=== PATIENT | male | born 1945 | race Caucasian/White ===

== ENCOUNTER 2018-09-11 14:20 | Inpatient (IN) | payer MEDICARE ==
--- NOTE | 2018-09-11 14:31 | ED ---
Complex/Multi-Sys Presentation - HPI Summary HPI Summary: Patient is a 73 y/o M presenting to ED via EMS with reports of possible fall. EMS states that the patient had been found on the floor of the bathroom of his home. The patient denies falling in the bathroom, he claims that he had sat down to put on his underwear, but, as a result of his arthritis, he could not stand up. As a result, he decided to lie on the floor of the bathroom. Patient claims to have been on the floor for 30-45 minutes, patient does not have a life alert alarm. He additionally claims that he has not had any PO intake for the past three days. Patient lives at home alone, Hx of stroke, dementia, multiple falls, UTI. Patient notes that he has been experiencing increased frequency of urination and states that he urinated on himself today. Dr. Phelps, who is in ED for another patient at this time, states that he follows this patient. Dr. Phelps notes that the had a recent LP done, patient had been diagnosed with NPH. Patient had been referred to Dr. Miller for possible shunt. During the appointment, the patient stated that he did not want a shunt or more workup. On triage, pain is denied, nothing is noted to aggravate/ alleviate Sx. Home medications, allergies, and nurse's notes are reviewed. - History Of Current Complaint Time Seen by Provider: 09/11/18 14:24 Hx Obtained From: Patient Onset/Duration: Sudden Onset, Lasting Hours - unwitnessed fall, incontinence Timing: Constant Severity Currently: None Aggravating Factor(s): nothing Alleviating Factor(s): nothing Associated Signs And Symptoms: Positive: Other - fall, urinary incontinence, increased frequency of urination - Allergies/Home Medications Allergies/Adverse Reactions: Allergies Allergy/AdvReac Type Severity Reaction Status Date / Time Penicillins Allergy Unknown Verified 08/28/18 13:25 Reaction Details Home Medications: Home Medications Aspirin EC TAB* [Ecotrin EC Low Dose 81 MG*] 81 mg PO DAILY 09/11/18 [History Confirmed 09/11/18] Cholecalciferol CAP/TAB(NF) [Vitamin D3 CAP/TAB (NF)] 5,000 unit PO DAILY [History Confirmed 09/11/18] Cyanocobalamin TAB* [Vitamin B12 TAB*] 1,000 mcg PO DAILY 09/11/18 [History Confirmed 09/11/18] Finasteride TAB* [Proscar TAB*] 7.5 mg PO DAILY 09/11/18 [History Confirmed ] Metoprolol Succinate XL TAB* [Toprol XL TAB*] 25 mg PO BID 09/11/18 [History Confirmed 09/11/18] Multivitamins/Minerals TAB* [Theragran/minerals TAB*] 1 tab PO DAILY 09/11/18 [ History Confirmed 09/11/18] Spironolactone TAB* [Aldactone TAB*] 25 mg PO DAILY 09/11/18 [History Confirmed 09/11/18] PMH/Surg Hx/FS Hx/Imm Hx Endocrine/Hematology History: Denies: Hx Diabetes Cardiovascular History: Reports: Hx Coronary Artery Disease, Hx Hypercholesterolemia, Hx Hypertension - MEDICATED, Hx Valvular Heart Disease, Other Cardiovascular Problems/Disorders - aortic valve replacement Denies: Hx Congestive Heart Failure, Hx Myocardial Infarction, Hx Pacemaker/ ICD Respiratory History: Denies: Hx Asthma, Hx Chronic Obstructive Pulmonary Disease (COPD) GI History: Reports: Hx Gall Bladder Disease - gallbladder removed History: Denies: Hx Renal Disease Sensory History: Reports: Hx Contacts or Glasses - for reading only Denies: Hx Hearing Aid Opthamlomology History: Reports: Hx Contacts or Glasses - for reading only Neurological History: Reports: Hx Transient Ischemic Attacks (TIA) - according to pt knowledge, Other Neuro Impairments/Disorders - LOC 30-40 seconds during syncopal episode--reason for this admission Psychiatric History: Denies: Hx Panic Disorder - Surgical History Surgery Procedure, Year, and Place: 09/30 CABG and aortic valve replace -[facility]. Cholecystectomy-[facility] - Family History Known Family History: Positive: Cardiac Disease - Social History Alcohol Use: None Substance Use Type: Reports: None Smoking Status (MU): Unknown if Ever Smoked Review of Systems Constitutional: Other - POSITIVE - POSSIBLE FALL Positive: frequency - increased urination , incontinence - urinary All Other Systems Reviewed And Are Negative: Yes Physical Exam - Summary Physical Exam Summary: Appearance: well appearing, no pain distress Skin: warm, dry, reflects adequate perfusion Head/face: normal Eyes: EOMI, GRAY ENT: mucous membranes moist Neck: supple, non-tender Respiratory: CTA, breath sounds present Cardiovascular: RRR, pulses symmetrical Abdomen: non-tender, soft Bowel Sounds: present Musculoskeletal: normal, strength/ROM intact Neuro: normal, sensory motor intact, alert and oriented to person, place, redness at occipital area Triage Information Reviewed: Yes Vital Signs On Initial Exam: Initial Vitals Pulse Pulse Ox 108 99 09/11/18 14:26 09/11/18 14:26 Vital Signs Reviewed: Yes Diagnostics - Laboratory Result Diagrams: 09/11/18 15:47 09/11/18 14:46 Lab Statement: Any lab studies that have been ordered have been reviewed, and results considered in the medical decision making process. - Radiology CXR Radiology Interpretation Completed By: Radiologist Summary of Radiographic Findings: IMPRESSION: NO ACTIVE CARDIOPULMONARY DISEASE. THIS REPORT WAS REVIEWED BY DR. MURPHY. - CT BRAIN CT CT Interpretation Completed By: Radiologist Summary of CT Findings: IMPRESSION: NO ACUTE INTRACRANIAL PATHOLOGY. CHRONIC SMALL VESSEL ISCHEMIC CHANGES. THIS REPORT WAS REVIEWED BY DR. MURPHY. Re-Evaluation - Re-Evaluation First Eval Re-Evaluation Time: 14:35 Comment: Daughter, Terra, arrived in ED. She states that the individual who buys groceries for the patient had found the patient on the floor today. She believes that the patient had urinated on the floor in the bathroom, attempted to clean it up, and fell on the floor. Daughter is agreeable with forensic social worker consult, stating that she does not believe the patient is safe at home. Second Eval Re-Evaluation Time: 14:47 Comment: brick kiln worker, Tiara, was contacted. She will put in an adult protective services consult for the patient. Complex Multi-Symp Course/Dx Course Of Treatment: Nurse's notes reviewed. Patient with history of normal pressure hydrocephalus presents after fall. There is evidence on his occiput that he had been on the ground for longer than described. CPK is elevated at greater than 1800. Renal function is just over baseline of 1.0 at 1.2 today. There is leukocytosis without evidence for infection or sepsis syndrome. 2 L IV fluids given and patient will be admitted to the hospitalist service. Social work consult was obtained. - Diagnoses Differential Diagnoses/HQI/PQRI: Metabolic Abnormality, Sepsis, Urinary Tract Infection, Other - Rhabdomyolysis Provider Diagnoses: Traumatic rhabdomyolysis, Normal pressure hydrocephalus syndrome, Dementia associated with normal pressure hydrocephalus, Fall - Physician Notifications Discussed Care Of Patient With: Claudia Rodriguez Time Discussed With Above Provider: 16:58 Instructed by Provider To: Other - Patient's case was discussed with Dr. Rodriguez, Dr. Rodriguez accepts for admission. - Critical Care Time Critical Care Time: 30-74 min - 30 minutes, CCT is EXCLUSIVE of separately billable procedures. Discharge - Sign-Out/Discharge Documenting (check all that apply): Patient Departure - admit Patient Received Moderate/Deep Sedation with Procedure: No - Discharge Plan Condition: Fair Disposition: ADMITTED TO [facility] Referrals: Justin Celestin DO [Primary Care Provider] - - Billing Disposition and Condition Condition: FAIR Disposition: Admitted to [facility] - Attestation Statements Document Initiated by Kasandraibe: Yes Documenting Scribe: ANUSHA ALBA Provider For Whom Kasandraibvladimir is Documenting (Include Credential): ALAYNA MURPHY MD Scribe Attestation: ANUSHA Montanez, scribed for ALAYNA MURPHY MD on 09/11/18 at 1803. Scribe Documentation Reviewed: Yes Provider Attestation: The documentation as recorded by the kasandraibANUSHA gilbert accurately reflects the service I personally performed and the decisions made by me, ALAYNA MURPHY MD Status of Scribe Document: Viewed
[2018-09-11] MEDS ORDERED: NS 0.9% 1000 ML** 1,000 ML IV ONE ×2 (14:35→16:06)
[2018-09-11 15:50] LABS: Albumin 4.2 g/dL (3.2-5.2); Albumin/Globulin Ratio 1.3 (1-3); BUN/Creatinine Ratio 24.8 (8-20); Calcium 9.8 mg/dL (8.6-10.3); EGFR African American 70.9 (>60); EGFR Non-African American 58.6 (>60); Globulin 3.2 g/dL (2-4); Total Bilirubin 1.3 mg/dL (0.2-1.0); Total Protein 7.4 g/dL (6.4-8.9)
[2018-09-11 15:58] LABS: Urine Appearance Cloudy; Urine Bacteria Absent (Absent); Urine Bilirubin Negative (Negative); Urine Blood 2+ (Negative); Urine Color Yellow; Urine Glucose Negative (Negative); Urine Ketones 1+ (Negative); Urine Nitrite Negative (Negative); Urine Protein 3+(>=500 mg/dL) (Negative); Urine Red Blood Cell Trace(0-2/hpf) (Absent); Urine Specific Gravity 1.024 (1.010-1.030); Urine Urobilinogen Negative (Negative); Urine White Blood Cell Trace(0-5/hpf) (Absent)
[2018-09-11 16:03] LABS: Hematocrit 51 % (36-46); Hemoglobin 17.8 g/dL (14.0-18.0); Mean Corpuscular HGB Conc 35 g/dL (31-36); Mean Corpuscular Hemoglobin 31 pg (27-31); Mean Corpuscular Volume 88 fL (80-94); Mean Platelet Volume 7.2 fL (7.4-10.4); Platelet Count 288 10^3/uL (150-450); Red Blood Count 5.83 10^6 /uL (4.18-5.48); Red Cell Distribution Width 13 % (10.5-15); White Blood Count 28.1 10^3/uL (3.5-10.8)
[2018-09-11 16:34] LABS: Potassium 4.2 mmol/L (3.5-5.0)
[2018-09-11 16:43] LABS: ABS Basophils 0.1 10^3/ul (0-0.2); ABS Eosinophils 0 10^3/ul (0-0.6); ABS Lymphocytes 0.8 10^3/ul (1.0-4.8); ABS Monocytes 2.4 10^3/ul (0-0.8); ABS Neutrophils 24.7 10^3/ul (1.5-7.7); ABS Nucleated RBC 0 10^3/ul; Eosinophil % 0.1 %; Lymphocyte % 2.9 %; Nucleated Red Blood Cells % 0
--- NOTE | 2018-09-11 18:28 | ADMNOTE ---
Subjective Interval History: ADMISSION HISTORY AND PHYSICAL EXAM: Allergies Allergy/AdvReac Type Severity Reaction Status Date / Time Penicillins Allergy Unknown Verified 08/28/18 13:25 Reaction Details Home Medications Medication Instructions Recorded Confirmed Type Aspirin EC TAB* [Ecotrin EC Low 81 mg PO DAILY 09/11/18 09/11/18 History Dose 81 MG*] Cholecalciferol CAP/TAB(NF) 5,000 unit PO DAILY 09/11/18 09/11/18 History [Vitamin D3 CAP/TAB (NF)] Cyanocobalamin TAB* [Vitamin B12 1,000 mcg PO DAILY 09/11/18 09/11/18 History TAB*] Finasteride TAB* [Proscar TAB*] 7.5 mg PO DAILY 09/11/18 09/11/18 History Metoprolol Succinate XL TAB* 25 mg PO BID 09/11/18 09/11/18 History [Toprol XL TAB*] Multivitamins/Minerals TAB* 1 tab PO DAILY 09/11/18 09/11/18 History [Theragran/minerals TAB*] Spironolactone TAB* [Aldactone 25 mg PO DAILY 09/11/18 09/11/18 History TAB*] HPI: The patient states he was in his usual state of health when he got up this AM and took a shower. He bent over to dry himself and fell down. He is not sure of the time. He could not get up. His daughter phoned him but he could not answer the phone. She came and found him on the floor and called 911. He has had many falls over the past year or so. He denies any pain now. Family History: Findings - unremarkable. Social History: Findings - Lives alone, . Daughter Terra is his SDM. Other daughter out of state. Never smoked, no alcohol abuse. Past Medical History: Findings - CABG/AVR with tissue valve, cholecystectomy, HTN, HL, BPH, NPH Review of Systems - Measurements Intake and Output: Intake and Output Last 24 Hours 09/09/18 09/10/18 09/11/18 09/12/18 06:59 06:59 06:59 06:59 Intake Total 1000 Balance 1000 Weight 177 lb Intake: IV Fluids 1000 - Review of Systems Constitutional Symptoms: Negative: Weight Gain, Weight Loss, Weakness, Fatigue, Fever, Night Sweats, Unexplained Falls, Other Dermatology: Positive: Normal HEENT: Positive: Normal Eyes: Positive: Normal Thyroid: Positive: Normal Pulmonary: Positive: Normal Cardiology: Positive: Normal Gastroenterology: Positive: Normal Genitourinary - Male: Positive: Prostatism Musculoskeletal: Positive: Arthritis Endocrinology: Positive: Normal Neurology: Positive: Other - NPH, frequent falls Psychiatry: Positive: Normal Allergic/Immunologic: Negative: Hx Anaphylaxis, Hx Angioedema, Hx Environmental, Hx Seasonal, Athsma, Hx HIV, Immunocompromise, Swollen Glands LymphNodes, Other Objective Vital Signs - 8 hr 09/11/18 09/11/18 09/11/18 14:26 14:28 15:19 Temperature 98.5 F Pulse Rate 108 109 109 Respiratory 24 Rate Blood Pressure 131/73 120/83 (mmHg) O2 Sat by Pulse 99 100 98 Oximetry 09/11/18 09/11/18 09/11/18 15:21 15:27 15:58 Temperature Pulse Rate 106 90 Respiratory Rate Blood Pressure 135/83 142/82 (mmHg) O2 Sat by Pulse 99 Oximetry 09/11/18 09/11/18 09/11/18 16:28 16:57 16:58 Temperature Pulse Rate 32 96 97 Respiratory Rate Blood Pressure 122/74 119/76 (mmHg) O2 Sat by Pulse 81 96 98 Oximetry 09/11/18 17:00 Temperature Pulse Rate 95 Respiratory Rate Blood Pressure (mmHg) O2 Sat by Pulse 98 Oximetry Oxygen Devices in Use Now: None Appearance: Alert, supine on ED stretcher. In fair spirits. Looks comfortable. Neck: NL Appearance and Movements; NL JVP, No Thyroid Enlargement, Masses Respiratory: Symmetrical Chest Expansion and Respiratory Effort, Clear to Auscultation, Clear to Percussion Cardiovascular: RRR, No Edema, - - 2/6 systolic murmur RSB Extremities: No Edema, - - R leg larger than L, soft, not tender Skin: No Nodules or Sclerosis, - - 8 cm band erythema R leg above sock impression Neurological: Alert and Oriented x 3, NL Sensation Result Diagrams: 09/11/18 15:47 09/11/18 14:46 Assess/Plan/Problems-Billing Assessment: - Patient Problems (1) NPH (normal pressure hydrocephalus) Current Visit: Yes Status: Acute Code(s): G91.2 - (IDIOPATHIC) NORMAL PRESSURE HYDROCEPHALUS SNOMED Code(s): 91610097 Comment: Discussed with Dr. Phelps who evaluated him as an outpt. 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 He saw Dr. Kincaid but the patient refused shunting. PT/OT ordered. Patient may require STR. (2) Cellulitis Current Visit: Yes Status: Acute Code(s): L03.90 - CELLULITIS, UNSPECIFIED SNOMED Code(s): 683374248 Comment: R leg red, sharply demarcated. Start cefazolin. US R calf ordered due to assymetry in size, R calf much larger than L. (3) Rhabdomyolysis Current Visit: Yes Status: Acute Code(s): M62.82 - RHABDOMYOLYSIS SNOMED Code(s): 377268069 Comment: Due to fall/immobility on floor. Repeat CK 2100 hrs 09/11 and AM . IV fluids, seems a little dehydrated as well. (4) HTN (hypertension) Current Visit: Yes Status: Acute Code(s): I10 - ESSENTIAL (PRIMARY) HYPERTENSION SNOMED Code(s): 68958400 Comment: Continue home dose metoprolol XL. (5) Prostatism Current Visit: Yes Status: Acute Code(s): N40.0 - BENIGN PROSTATIC HYPERPLASIA WITHOUT LOWER URINRY TRACT SYMP SNOMED Code(s): 12292568 Comment: Continue finasteride.
[2018-09-11] MEDS: ceFAZolin 1 GM* Q8H (AddVan) IVPB SCH ×2 (18:38)
[2018-09-11] MEDS: NS 0.9% 1000 ML** 1,000 ML IV SCH (18:39)
--- NOTE | 2018-09-11 18:42 | PN ---
Progress Note - Progress Note Date of Service: 09/11/18 Note: SDM and contact: Terra Shoemaker (daughter), .
[2018-09-11] MEDS ORDERED: ceFAZolin 1 GM in Dextrose (*) 1 GM/50 ML BAG IVPB SCH (19:00)
[2018-09-11 23:02] LABS: BUN/Creatinine Ratio 26.3 (8-20); Calcium 8.7 mg/dL (8.6-10.3); EGFR Non-African American 62.8 (>60); Potassium 3.6 mmol/L (3.5-5.0)
[2018-09-11] MEDS: Metoprolol Succinate XL TAB* 25 MG PO SCH (23:42)
[2018-09-12] MEDS: ceFAZolin 1 GM* Q8H (AddVan) IVPB SCH ×6 (02:37→18:36)
[2018-09-12] MEDS: NS 0.9% 1000 ML** 1,000 ML IV SCH (02:37)
[2018-09-12 06:52] LABS: ABS Basophils 0.1 10^3/ul (0-0.2); ABS Eosinophils 0.1 10^3/ul (0-0.6); ABS Lymphocytes 1.4 10^3/ul (1.0-4.8); ABS Monocytes 1.5 10^3/ul (0-0.8); ABS Neutrophils 11.2 10^3/ul (1.5-7.7); ABS Nucleated RBC 0 10^3/ul; Eosinophil % 0.5 %; Hematocrit 41 % (36-46); Hemoglobin 14.1 g/dL (14.0-18.0); Lymphocyte % 9.5 %; Mean Corpuscular HGB Conc 34 g/dL (31-36); Mean Corpuscular Hemoglobin 30 pg (27-31); Mean Corpuscular Volume 88 fL (80-94); Mean Platelet Volume 6.9 fL (7.4-10.4); Nucleated Red Blood Cells % 0.1; Platelet Count 205 10^3/uL (150-450); Red Cell Distribution Width 13 % (10.5-15); White Blood Count 14.2 10^3/uL (3.5-10.8)
[2018-09-12 07:09] LABS: Calcium 8.5 mg/dL (8.6-10.3); EGFR African American 88.4 (>60); Potassium 3.7 mmol/L (3.5-5.0)
[2018-09-12 07:11] LABS: CKMB ng/mL 31.2 ng/mL (0.6-6.3)
[2018-09-12] MEDS: Cholecalciferol TAB* 1000 UNITS PO SCH (09:50)
[2018-09-12] MEDS: Aspirin EC TAB* 81 MG TAB.EC PO SCH (09:50)
[2018-09-12] MEDS: Cyanocobalamin TAB* 500 MCG PO SCH (09:50)
[2018-09-12] MEDS: Metoprolol Succinate XL TAB* 25 MG PO SCH (09:50)
[2018-09-12] MEDS: Finasteride TAB* 5 MG PO SCH (09:50)
[2018-09-12] MEDS ORDERED: Senna TAB PO PRN (16:36)
[2018-09-12] MEDS ORDERED: NS 0.9% 1000 ML** 1,000 ML IV SCH (16:36)
[2018-09-12] MEDS ORDERED: Polyethylene Glycol 3350* 17 GM PACKET PO PRN (16:36)
--- NOTE | 2018-09-12 16:57 | PN ---
Subjective Interval History: Pt recommended to go to rehab per PT and OT. Pt declines rehab, although doesn' t have capacity to refuse. Daughter reports to other staff that he is unable to care for himself at home - cannot meet basic ADLs. Pt reports to nursing that he has guns at home and wants to shoot himself given his poor health and losing his independence. Denies plan in hospital. During my interview, mostly fixated on the fact that he "did not fall", despite multiple attempts to redirect. Still on IVF given elevated CK from being on ground. Family History: Findings - unremarkable. Social History: Findings - Lives alone, . Daughter Terra is his SDM. Other daughter out of state. Never smoked, no alcohol abuse. Past Medical History: Findings - CABG/AVR with tissue valve, cholecystectomy, HTN, HL, BPH, NPH Objective Active Medications: Aspirin (Aspirin Ec Tab*) 81 mg PO DAILY [facility] Last Admin: 09/12/18 09:50 Dose: 81 mg Cholecalciferol (Vitamin D Tab*) 5,000 units PO DAILY [facility] Last Admin: 09/12/18 09:50 Dose: 5,000 units Cyanocobalamin (Vitamin B12 Tab*) 1,000 mcg PO DAILY [facility] Last Admin: 09/12/18 09:50 Dose: 1,000 mcg Finasteride (Proscar Tab*) 7.5 mg PO DAILY [facility] Last Admin: 09/12/18 09:50 Dose: 7.5 mg Cefazolin Sodium 1 gm/ Sodium (Chloride) 50 mls @ 200 mls/hr IVPB Q8H [facility] Last Admin: 09/12/18 10:40 Dose: 200 mls/hr Sodium Chloride (Ns 0.9% 1000 Ml) 1,000 mls @ 75 mls/hr IV PER RATE [facility] Metoprolol Succinate (Toprol Xl Tab*) 25 mg PO BID [facility] Last Admin: 09/12/18 09:50 Dose: 25 mg Polyethylene Glycol/Electrolytes (Miralax*) 17 gm PO DAILY PRN PRN Reason: CONSTIPATION Senna (Senokot Tab*) 1 tab PO BEDTIME PRN PRN Reason: if no BM during day Vital Signs - 8 hr 09/12/18 09/12/18 10:53 11:07 Temperature 98.1 F Pulse Rate 82 Respiratory 16 20 Rate Blood Pressure 103/54 (mmHg) O2 Sat by Pulse 100 Oximetry Oxygen Devices in Use Now: None Appearance: appears dysthymic and averts eyes to ground Cardiovascular: RRR Extremities: - - R lim with few scattered scabs with surrounding erythema, no fluctuance or drainage Result Diagrams: 09/12/18 06:44 09/12/18 06:44 Microbiology and Other Data: Microbiology 09/11/18 15:44 Urine Culture - Final Urine No Growth (<1,000 CFU/mL) Assess/Plan/Problems-Billing Assessment: 73M with CAD s/c CABG/AVR, BPH, HTN, normal pressure hydrocephalus declining shunt, who presents after being found down at home. Found with mild rhabdo, new cellulitis of RLE, and inability to care for self. Pending placement. - Patient Problems (1) Suicidal ideation Comment: No plan in hospital but states he has guns and wants to shoot himself given multiple medical problems and loss of independence. - psych consulted (2) HTN (hypertension) Comment: Continue home dose metoprolol XL. (3) Rhabdomyolysis Comment: Due to fall/immobility on floor. CK always < 5k. - decrease IVF to 75cc/hr given no SHEBA and creatinine decreasing (4) Prostatism Comment: Continue finasteride. (5) NPH (normal pressure hydrocephalus) Comment: Discussed with Dr. Phelps who evaluated him as an outpt. 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 He saw Dr. Kincaid but the patient refused shunting. PT/OT ordered. Patient may require STR. (6) Cellulitis Comment: R leg red, sharply demarcated. - cont cefazolin (09/11 - )
[2018-09-12] MEDS: Metoprolol Succinate XL TAB* 50 MG PO SCH (20:10)
[2018-09-13] MEDS: ceFAZolin 1 GM* Q8H (AddVan) IVPB SCH ×2 (02:43)
[2018-09-13 07:51] LABS: ABS Basophils 0.1 10^3/ul (0-0.2); ABS Eosinophils 0.2 10^3/ul (0-0.6); ABS Lymphocytes 1.4 10^3/ul (1.0-4.8); ABS Neutrophils 7.5 10^3/ul (1.5-7.7); ABS Nucleated RBC 0 10^3/ul; Eosinophil % 2.4 %; Hematocrit 38 % (36-46); Lymphocyte % 13.7 %; Mean Corpuscular HGB Conc 35 g/dL (31-36); Mean Corpuscular Hemoglobin 31 pg (27-31); Mean Corpuscular Volume 89 fL (80-94); Nucleated Red Blood Cells % 0; Platelet Count 184 10^3/uL (150-450); Red Blood Count 4.24 10^6 /uL (4.18-5.48); Red Cell Distribution Width 13 % (10.5-15); White Blood Count 10.1 10^3/uL (3.5-10.8)
[2018-09-13 08:11] LABS: BUN/Creatinine Ratio 27.4 (8-20); Calcium 8.4 mg/dL (8.6-10.3); EGFR African American 108.1 (>60); EGFR Non-African American 89.3 (>60); Magnesium 1.9 mg/dL (1.9-2.7); Potassium 3.7 mmol/L (3.5-5.0)
[2018-09-13] MEDS ORDERED: Magnesium Sulfate 1 GM IV* 1 GM/100 ML BAG IV ONE (08:22)
[2018-09-13] MEDS ORDERED: Potassium Chlor TAB* 20 MEQ TAB.ER PO ONE (08:22)
[2018-09-13] MEDS: Cholecalciferol TAB* 1000 UNITS PO SCH (08:32)
[2018-09-13] MEDS: Cyanocobalamin TAB* 500 MCG PO SCH (08:33)
[2018-09-13] MEDS: Finasteride TAB* 5 MG PO SCH (08:34)
[2018-09-13] MEDS: Aspirin EC TAB* 81 MG TAB.EC PO SCH (08:34)
[2018-09-13] MEDS: Cephalexin CAP* 500 MG PO SCH ×4 (08:41→22:42)
[2018-09-13] MEDS: Tamsulosin CAP* 0.4 MG PO SCH (11:09)
[2018-09-13] MEDS: Citalopram TAB* 20 MG PO SCH (12:17)
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
[2018-09-13] MEDS: Enoxaparin(*) 40 MG/0.4 ML SYR SUBCUT SCH (13:58)
--- NOTE | 2018-09-13 20:03 | PN ---
Subjective Date of Service: 09/13/18 Interval History: Pt in better spirits today and mentions that people in medicine need to have more of a "sense of humor" regarding his statement that he would shoot himself when he gets home. Discussed with patient the necessity of rehab placement and he is amenable to this plan. He is now off IV antibiotics and off IVF. He was evaluated by psychiatry today and deemed to not have capacity to refuse placement. He was amenable to being started on an SSRI. His only complaint is that he is embarrassed that, "as a 73 year old man", he is having difficulty urinating. He states he has a history of prostate issues and is on finasteride. Will start tamsulosin and monitor BP. Family History: Findings - unremarkable. Social History: Findings - Lives alone, . Daughter Terra is his SDM. Other daughter out of state. Never smoked, no alcohol abuse. Past Medical History: Findings - CABG/AVR with tissue valve, cholecystectomy, HTN, HL, BPH, NPH Objective Active Medications: Aspirin (Aspirin Ec Tab*) 81 mg PO DAILY [facility] Last Admin: 09/13/18 08:34 Dose: 81 mg Cephalexin HCl (Keflex Cap*) 500 mg PO QID [facility] Last Admin: 09/13/18 17:04 Dose: 500 mg Cholecalciferol (Vitamin D Tab*) 5,000 units PO DAILY [facility] Last Admin: 09/13/18 08:32 Dose: 5,000 units Citalopram Hydrobromide (Celexa Tab*) 20 mg PO DAILY [facility] Last Admin: 09/13/18 12:17 Dose: 20 mg Cyanocobalamin (Vitamin B12 Tab*) 1,000 mcg PO DAILY [facility] Last Admin: 09/13/18 08:33 Dose: 1,000 mcg Enoxaparin Sodium (Lovenox(*)) 40 mg SUBCUT Q24H [facility] Last Admin: 09/13/18 13:58 Dose: 40 mg Finasteride (Proscar Tab*) 7.5 mg PO DAILY [facility] Last Admin: 09/13/18 08:34 Dose: 7.5 mg Metoprolol Succinate (Toprol Xl Tab*) 50 mg PO BEDTIME [facility] Last Admin: 09/12/18 20:10 Dose: 50 mg Polyethylene Glycol/Electrolytes (Miralax*) 17 gm PO DAILY PRN PRN Reason: CONSTIPATION Senna (Senokot Tab*) 1 tab PO BEDTIME PRN PRN Reason: if no BM during day Tamsulosin HCl (Flomax Cap*) 0.4 mg PO DAILY [facility] Last Admin: 09/13/18 11:09 Dose: 0.4 mg Vital Signs - 8 hr 09/13/18 09/13/18 14:32 15:36 Temperature 97.5 F 99.0 F Pulse Rate 70 74 Respiratory 20 22 Rate Blood Pressure 141/69 129/59 (mmHg) O2 Sat by Pulse 97 97 Oximetry Oxygen Devices in Use Now: None Appearance: elderly man, more interactive today but still with depressed mood Ears/Nose/Mouth/Throat: Mucous Membranes Moist Respiratory: Clear to Palpation Cardiovascular: RRR Extremities: - - 1+ edema around ankles Result Diagrams: 09/13/18 07:12 09/13/18 07:12 Microbiology and Other Data: Microbiology 09/11/18 15:44 Urine Culture - Final Urine No Growth (<1,000 CFU/mL) Assess/Plan/Problems-Billing Assessment: 73M with CAD s/c CABG/AVR, BPH, HTN, normal pressure hydrocephalus declining shunt, who presents after being found down at home. Found with mild rhabdo, new cellulitis of RLE, and inability to care for self. Pending placement. - Patient Problems (1) Rhabdomyolysis Comment: Due to fall/immobility on floor. CK always < 5k. Now off IVF and with continued good renal function. (2) Suicidal ideation Comment: No plan in hospital but states he has guns and wants to shoot himself given multiple medical problems and loss of independence. - psych consulted, appreciate recs: deemed not to have capacity to refuse placement or SSIRI - medication started (3) HTN (hypertension) Comment: Continue home dose metoprolol XL. (4) Prostatism Comment: Continue finasteride. Add tamsulosin. (5) NPH (normal pressure hydrocephalus) Comment: He had [facility]TER imaging at another hospital, had trial of LP with large volume CSF removal with significant improvement. He saw Dr. Kincaid but the patient refused shunting. Now pending CATINA. (6) Cellulitis Comment: R leg red, sharply demarcated. - cont first-gen ceph - now PO (09/11 - ) Status and Disposition: Pending placement.
[2018-09-13] MEDS: Metoprolol Succinate XL TAB* 50 MG PO SCH (22:41)
[2018-09-14 08:30] LABS: Hematocrit 40 % (36-46); Hemoglobin 13.7 g/dL (14.0-18.0); Mean Corpuscular HGB Conc 35 g/dL (31-36); Mean Corpuscular Hemoglobin 31 pg (27-31); Mean Corpuscular Volume 88 fL (80-94); Mean Platelet Volume 6.9 fL (7.4-10.4); Platelet Count 212 10^3/uL (150-450); Red Blood Count 4.48 10^6 /uL (4.18-5.48); Red Cell Distribution Width 13 % (10.5-15)
[2018-09-14 08:43] LABS: BUN/Creatinine Ratio 18.6 (8-20); Calcium 8.8 mg/dL (8.6-10.3); EGFR African American 105.2 (>60); EGFR Non-African American 86.9 (>60); Potassium 4.2 mmol/L (3.5-5.0)
[2018-09-14 09:13] LABS: TSH (Thyroid Stimulating Horm) 3.56 mcIU/mL (0.34-5.60)
[2018-09-14 09:27] LABS: Vitamin D Total 25(OH) 45.6 ng/mL (20-50)
[2018-09-14] MEDS: Cyanocobalamin TAB* 500 MCG PO SCH (10:39)
[2018-09-14] MEDS: Cholecalciferol TAB* 1000 UNITS PO SCH (10:39)
[2018-09-14] MEDS: Tamsulosin CAP* 0.4 MG PO SCH (10:39)
[2018-09-14] MEDS: Finasteride TAB* 5 MG PO SCH (10:39)
[2018-09-14] MEDS: Cephalexin CAP* 500 MG PO SCH ×2 (10:39→14:47)
[2018-09-14] MEDS: Aspirin EC TAB* 81 MG TAB.EC PO SCH (10:40)
[2018-09-14] MEDS: Citalopram TAB* 20 MG PO SCH (10:40)
--- NOTE | 2018-09-14 13:16 | CONSULT ---
Identification - Patient Identification Reason for Psychiatric Consultation: Suicidal Ideation -: Patient is a 73 year old, M admitted on 09/11/18. - MHU Identification Employment Status: Disabled Hx Psychiatric Hospitalization: No History - Objective HPI: Farhat is seen for psychiatric follow up. Prior to seeing him I spoke again with his daughter, Terra Shoemaker ([phone]), who reports that the family has removed the weapons from his home per our instructions. She also notes that the patient sent a text message to his friend Fredy in which he allegedly asked him to bring a gun to the Rehab "so I can end this problem the right way." Upon examination I confronted the patient with this information and he is dismissive. "Doesn't anybody in this hospital have a sense of humor? I'm not gonna do anything to myself." He is provided with education about the purpose of sub-acute rehab as well as the rationale behind starting an antidepressant and he is actually fairly receptive to this. His cognition remains impaired with overt lapses in memory, orientation, attention and insight. He steadfastly denies SI. Exam Appearance: Obese Hygiene: Normal Grooming: Fairly Well Kept Psychomotor Activities: Abnormal-Decreased Exhibits Abnormal Movement: No Attitude and Relatedness: Dismissive Eye Contact: Good - Speech Quality: Unpressured Latencies: Normal Quantity: Appropriate Patient's Decription of Mood: "Sad" Observed Affect: Constricted Affect Consistent with: Dysphoria Patient's Thought Process: Circumstantial Thought Content: No Passive Wish, No Suicidal Planning, No Homicidal Ideation, No Paranoid Ideation Experiencing Hallucinations: No, Sensorium is Clear Type of Hallucinations: Visual: No, Auditory: No, Command: No Level of Consciousness: Alert Orientation: No Intact, No Orientated to Time, No Orientated to Place, No Orientated to Person Impulse Control: Poor Insight and Judgement: Impaired Impression - Impression Clinical Impression: 73 y.o. single, , retired white male with no psychiatric history but comorbid dementia and normal pressure hydrocephalus, admitted to medicine s/p falls and decreased ability to care for himself independently, who is being evaluated by psychiatry secondary to questions of medical decision making capacity as well as suicidal statements. Inpatient DSM-V Dx: F32.2 Merits Inpatient Hospitalization: No BSU: Problem List - Patient Problems (1) Major depressive disorder, single episode, severe Current Visit: Yes Status: Acute Priority: Medium Code(s): F32.2 - MAJOR DEPRESSV DISORD, SINGLE EPSD, SEV W/O PSYCH FEATURES SNOMED Code(s): 848801360445 Plan - Treatment Plan Treatment Plan: The patient has been started on citalopram 20mg PO qday, which he is tolerating well. No inpatient behavioral health treatment is warranted at this time. He is set for transfer to [facility] this afternoon. His family has removed the weapons from his home and this clinician has issued a SAFE Act report that will prevent his access to firearm sales in the future. Psychiatry is signing off. Thanks for the interesting consult. Continued Medication Management: Start Medication Medications: Current Medications Aspirin (Aspirin Ec Tab*) 81 mg PO DAILY [facility] Last Admin: 09/14/18 10:40 Dose: 81 mg Cephalexin HCl (Keflex Cap*) 500 mg PO QID [facility] Last Admin: 09/14/18 10:39 Dose: 500 mg Cholecalciferol (Vitamin D Tab*) 5,000 units PO DAILY [facility] Last Admin: 09/14/18 10:39 Dose: 5,000 units Citalopram Hydrobromide (Celexa Tab*) 20 mg PO DAILY [facility] Last Admin: 09/14/18 10:40 Dose: 20 mg Cyanocobalamin (Vitamin B12 Tab*) 1,000 mcg PO DAILY [facility] Last Admin: 09/14/18 10:39 Dose: 1,000 mcg Enoxaparin Sodium (Lovenox(*)) 40 mg SUBCUT Q24H [facility] Last Admin: 09/13/18 13:58 Dose: 40 mg Finasteride (Proscar Tab*) 7.5 mg PO DAILY [facility] Last Admin: 09/14/18 10:39 Dose: 7.5 mg Metoprolol Succinate (Toprol Xl Tab*) 50 mg PO BEDTIME [facility] Last Admin: 09/13/18 22:41 Dose: 50 mg Polyethylene Glycol/Electrolytes (Miralax*) 17 gm PO DAILY PRN PRN Reason: CONSTIPATION Senna (Senokot Tab*) 1 tab PO BEDTIME PRN PRN Reason: if no BM during day Tamsulosin HCl (Flomax Cap*) 0.4 mg PO DAILY [facility] Last Admin: 09/14/18 10:39 Dose: 0.4 mg
[2018-09-14 14:13] VITALS: BP 114/66
--- NOTE | 2018-09-14 15:31 | DS ---
CC: Dr. Justin Celestin; Dr. Howard Arango; Dr. Ernesto Phelps DISCHARGE SUMMARY: DATE OF ADMISSION: 09/11/18 DATE OF DISCHARGE: 09/14/18 PRIMARY CARE PHYSICIAN: Dr. Justin Celestin. NEUROLOGIST: Dr. Ernesto Phelps. DISPOSITION: [facility] for rehab. CONDITION: Improved. PRIMARY DIAGNOSES: 1. Fall complicated by rhabdomyolysis. 2. Cellulitis of right lower extremity. 3. Normal pressure hydrocephalus, complicated by gait instability. 4. Depression with suicidal ideation. SECONDARY DIAGNOSES: 1. Benign prostatic hyperplasia. 2. Coronary artery disease, status post coronary artery bypass graft and aortic valve replacement. 3. Hypertension. CONSULTS: Psychiatry, Dr. Howard Arango. MEDICATIONS ON DISCHARGE: 1. Spironolactone 25 mg daily. 2. Finasteride 7.5 mg daily. 3. Tamsulosin 0.4 mg daily. 4. Aspirin 81 mg daily. 5. Metoprolol succinate 50 mg nightly. 6. Citalopram 20 mg daily. 7. MiraLAX 17 g daily as needed for constipation. 8. Vitamin B12 1000 mcg daily. 9. Vitamin D3 5000 units daily. 10. Multivitamin daily. HISTORY OF PRESENT ILLNESS: Mr. Saavedra is a 73-year-old man with coronary artery disease, status post CABG/AVR; normal pressure hydrocephalus, refusing shunt; BPH; hypertension, who is presenting after being found down at home. He reports that he was in his usual state of health until getting up in the morning on the day of presentation , take a shower, he bent over to dry himself and had fallen down. He does not know what time but he was not able to get up to call for help. His daughter was not able to reach him on the phone, so she went to his house to find him on the floor and called 911. He has had many falls in the last few years. He is denying pain, lightheadedness, although does report skin breakdown on the back of his head from being on the ground, so it is possible that he had been on the ground for longer than just 1 day prior to presentation. HOSPITAL COURSE: Collateral obtained from the patient's neurologist reveals that he previously had had a trial of a lumbar puncture with large volume CSF removal with significant improvement in his NPH symptoms; however, after evaluation with Dr. Miller, the patient stated he refused the shunt. He was noted by the hospitalist team to have a sharply demarcated area of erythema on his right lim without purulence, so he was started on first-generation cephalosporin for his hospitalization. He was found to have a CPK of 1862, so he was started on IV fluids for rhabdomyolysis. His creatinine function remained normal throughout admission. He was evaluated by Physical Therapy, who had recommended acute rehab services given that he required safety cueing and a rolling walker for transfers. Of note, during the hospitalization, the patient had told staff that he had guns at home and that he planned to shoot himself on discharge. According to his daughter, he did this at an outside hospital within the last 6 months and was evaluated by Psychiatry. Here, he was seen by the psychiatry team and had SAFE Act precautions placed and was started on an SSRI. He was deemed by psychiatry team not to have capacity to refuse treatment for depression nor to have capacity to refuse rehab placement. Subacute rehab facility options were presented to his daughter and who decided to apply to [facility] where he was accepted for rehab. On the day of discharge, the patient denied complaints, only stating that he is embarrassed that he has had this recent functional decline and that he still does not understand why he is able to return home, although this had been explained to him each morning on rounds. Otherwise, 10-point review of systems was negative. PHYSICAL EXAMINATION: The patient is afebrile. Other vital signs are stable. In general, chronically ill-appearing elderly man, not in acute distress. Neck : Without JVD. Heart: Regular rate and rhythm. No murmurs, gallops, or rubs. Lungs: Clear to auscultation bilaterally. Abdomen: Soft, nontender, nondistended. Lower Extremities: Right lim with healing scabs, no longer with erythema, nontender. Trace lower extremity swelling around ankles. Neuro exam: A and O x3. The patient declines further neurologic assessment. PERTINENT STUDIES AND LABS: Brain CT on 09/11/18 with no acute intracranial pathology, with chronic small vessel ischemic changes. Chest x-ray with no active cardiopulmonary disease. Venous Doppler study with no DVT on the visualized knee veins, but poor visualization of posterior tibioperoneal veins secondary to edema, so below-the - knee DVT cannot be excluded. DISCHARGE PLAN: The patient is to be transferred to the [facility] for ongoing skilled physical therapy needs. He is to continue all medications as above and will need follow-up with general practitioner and psychiatrist for his ongoing chronic medical conditions and psychiatric needs with possible titration of his newly started SSRI during admission. He has to resume a healthy diet and regular level of activity as tolerated. TIME SPENT: Approximately 60 minutes spent on discharge of this patient; more than half of which was spent with care, coordination, or at bedside for interview and exam. [id number]/CPS #: [id number] MTDD
[2018-09-14] MEDS: Enoxaparin(*) 40 MG/0.4 ML SYR SUBCUT SCH (16:33)
== END 2018-09-14 15:30 | DRG 565 ==
LOC: ED 14:20 → MED 18:06
PROVIDERS: ADMIT Internal Medicine; ATTEND Internal Medicine
DX: T79.6XXA Traumatic ischemia of muscle, initial encounter (principal); G91.2 (Idiopathic) normal pressure hydrocephalus; L03.115 Cellulitis of right lower limb; R45.851 Suicidal ideations; F32.2 Major depressive disorder, single episode, severe without psychotic features; W19.XXXA Unspecified fall, initial encounter; R29.6 Repeated falls; F03.90 Unspecified dementia, unspecified severity, without behavioral disturbance, psychotic disturbance, mood disturbance, and anxiety; I25.10 Atherosclerotic heart disease of native coronary artery without angina pectoris; E78.00 Pure hypercholesterolemia, unspecified; I10 Essential (primary) hypertension; D72.829 Elevated white blood cell count, unspecified; E78.5 Hyperlipidemia, unspecified; N40.0 Benign prostatic hyperplasia without lower urinary tract symptoms; E66.9 Obesity, unspecified; R26.9 Unspecified abnormalities of gait and mobility; Z79.82 Long term (current) use of aspirin; Y92.091 Bathroom in other non-institutional residence as the place of occurrence of the external cause; Z95.2 Presence of prosthetic heart valve; Z86.73 Personal history of transient ischemic attack (TIA), and cerebral infarction without residual deficits; Z90.49 Acquired absence of other specified parts of digestive tract; Z82.49 Family history of ischemic heart disease and other diseases of the circulatory system; Z88.0 Allergy status to penicillin; Z87.440 Personal history of urinary (tract) infections; Z68.25 Body mass index [BMI] 25.0-25.9, adult
CPT/HCPCS: 36415; 70450; 71045; 80048; 80053; 81003; 81015; 82306; 82550; 82553; 83605; 83735; 84443; 85025; 85027; 87086; 99284; A9270-GY; G8978-GP-CL; G8979-GP-CI; G8987-GO-CK; G8988-GO-CI; G8989-GO-CH; J0690; J1650; J3475

== ENCOUNTER 2018-11-02 05:47 | Inpatient (IN) | payer MEDICARE ==
[~2018-11-02 05:47] MED LIST: Buffered Lidocaine 1% SYRIN* 1 ML/SYRINGE INTRADERM ONE; Vancomycin(*) 1,000 MG in NS 0.9% 250 ML* 250 ML IVPB SCH
--- OUTSIDE RECORDS SUMMARY | 2018-11-02 05:51 | XMS REPORT | Continuity of Care Document ---
:1945 External Reference #:[id number] Author Name JenniferGloria laboy Care Team Providers Name Role Phone Justin Celestin D.O. Primary Care Physician Unavailable Payers Date Identification Numbers Payment Provider Subscriber Effective: 2013 Policy Number: [id number] Medicare Blue Ppo Farhat Saavedra Group Number: [id number] [address] [address] PayID: [id number] [place] [address] Problems Active Problems Provider Date Aortic valve disorder Laina Rodriguez D.O. Onset: 04/07/2011 Coronary arteriosclerosis Laina Rodriguez D.O. Onset: 10/11/2011 Aortic valve disorder Liana Rodriguez D.O. Onset: 04/12/2012 Benign essential hypertension [facility] Schedule Onset: 04/05/2013 Normal pressure hydrocephalus Ernesto Phelps M.D. Onset: 09/21/2018 Abnormal gait Ernesto Phelps M.D. Onset: 08/01/2018 Amnesia Ernesto Phleps M.D. Onset: 08/01/2018 Obstructive hydrocephalus Ernesto Phelps M.D. 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 Polyethylene Glycol 1000 as needed Unknown Powder Acetaminophen 2 every 4 hours Unknown 325mg Tablets as needed for pain Cholecalciferol 5000 by po Unknown Powder Cyanocobalamin one everyday Unknown 1000mcg/ML Solution Tamsulosin HCL 1 by mouth every Unknown 0.4mg Capsules day Celexa 1 by mouth every Unknown 20mg Tablets day Vitamin D3 Maximum 1 by mouth every Unknown Strength day 5000Unit Capsules Vitamin B12 1 by mouth every Unknown 1000mcg Tablets day ER Finasteride Take One Tablet Unknown 5mg Tablets By Mouth Every Day Spironolactone Take One Tablet Unknown 25mg Tablets By Mouth Every Day Metoprolol Succinate ER Take One Tablet Unknown 50mg By Mouth once a Tablets ER 24HR day Coq-10 1 by mouth bid Unknown 100mg Capsules Multivitamins 1 PO qd Alvin Breen MD Tablets History Medications Pravastatin Sodium Take 1 Tablet By 90tabs Laina 04/12/2012 - 40mg Mouth AT Bedtime Beverly Rodriguez 05/30/2014 Tablets Pravastatin Sodium 1 po daily at Laina 10/11/2011 - 80mg bedtime Beverly Rodriguez 10/11/2011 Tablets Pravastatin Sodium 1 po daily at Laina 10/11/2011 - 80mg bedtime Beverly Rodriguez 04/12/2012 Tablets Avapro 1 po qd 30tabs Laina 06/15/2010 - 150mg Tablets Beverly Rodriguez 11/30/2010 Metoprolol Succinate ER 1 po bid 180tabs Laina 05/11/2010 - 25mg Beverly Rodriguez 03/31/2018 Tablets ER 24HR Altace 1 po qd 90caps Laina 04/20/2010 - 5mg Capsules Beverly Rodriguez 06/15/2010 Ibuprofen 1 PO tid prn 270tabs Enoch Bui, 01/03/2007 - 600mg Tablets Samy 05/11/2010 Lisinopril Take One Tablet Unknown - 5mg Tablets By Mouth Every 04/17/2018 Day Cyclobenzaprine HCL Take One Tablet Unknown - 10mg By Mouth Three 04/17/2018 Tablets Times A Day as Needed For Muscle Spasm Atorvastatin Calcium Take One Tablet Unknown - 40mg By Mouth Every 04/17/2018 Tablets Day Spironolactone Take One Tablet Unknown - 25mg Tablets By Mouth Every 03/31/2018 Day Carbidopa-Levodopa Take One Tablet Unknown - 25-100mg By Mouth Three 07/31/2018 Tablets Times A Day Atorvastatin Calcium 1 by mouth every 90tabs Unknown - 10mg day 03/31/2018 Tablets Tamsulosin HCL 1 by mouth every 90caps Unknown - 0.4mg Capsules day 03/31/2018 Avapro Take One Tablet 30tabs Laina - 75mg Tablets By Mouth Every Beverly Rodriguez 12/12/2013 Day Aspirin 1 po qd Unknown - 325mg Tablets 06/07/2013 Pravastatin Sodium 1 tablet by 90tabs Laina - 40mg mouth once daily Beverly Rodriguez 06/07/2013 Tablets at bedtime Lovastatin 1 po bid Unknown - 20mg Tablets 11/30/2010 Altace 1 po qd Unknown - 2.5mg Capsules 04/20/2010 Asa 1 po qd Unknown - 81mg 11/30/2010 Viagra 1 po prn 12tabs Unknown - 50mg Tablets 04/20/2010 Multiple Vitamins 1 po qd Unknown - Tablets 04/20/2010 Lovastatin po qhs 90tabs Unknown - 20mg Tablets 05/11/2010 Medications Administered in Office Medication SIG Qnty Indications Ordering Provider Date Depomedrol 40MG Laina Gonzales M.D. 06/19/2015 Injection Depomedrol 80MG Laina Gonzales M.D. 11/11/2014 Injection Depomedrol 80MG Laina Gonzales M.D. 04/04/2014 Injection Depomedrol 80MG Laina Gonzales M.D. 08/23/2013 Injection Depomedrol 80MG Laina Gonzales M.D. 11/13/2012 Injection Immunizations CPT Code Status Date Vaccine Lot # [id number] Given 04/11/2002 Td (History By Patient) Vital Signs Date Vital Result Comment 10/04/2018 2:01pm Height 65 inches 5'5" Weight 169.00 lb BP Systolic Sitting 122 mmHg BP Diastolic Sitting 80 mmHg Pain Level 0 BMI (Body Mass Index) 28.1 kg/m2 09/21/2018 10:21am Height 65 inches 5'5" Weight 169.00 lb Heart Rate 63 /min BP Systolic 128 mmHg BP Diastolic 82 mmHg BMI (Body Mass Index) 28.1 kg/m2 09/08/2018 9:29am Height 65 inches 5'5" Weight 177.00 lb Heart Rate 70 /min BP Systolic Sitting 140 mmHg BP Diastolic Sitting 78 mmHg Respiratory Rate 14 /min Pain Level 0 BMI (Body Mass Index) 29.5 kg/m2 08/28/2018 11:15am Height 65 inches 5'5" Weight 177.00 lb Heart Rate 72 /min BP Systolic 112 mmHg BP Diastolic 82 mmHg BMI (Body Mass Index) 29.5 kg/m2 08/01/2018 11:26am Height 65 inches 5'5" Weight 177.00 lb Heart Rate 70 /min BP Systolic 120 mmHg BP Diastolic 70 mmHg BMI (Body Mass Index) 29.5 kg/m2 04/17/2018 1:23pm Height 65 inches 5'5" Weight 178.00 lb BP Systolic Sitting 138 mmHg BP Diastolic Sitting 70 mmHg Pain Level 4 BMI (Body Mass Index) 29.6 kg/m2 02/01/2018 7:58am Height 65 inches 5'5" Weight 178.00 lb with shoes Heart Rate 68 /min BP Systolic Sitting 120 mmHg Lue reg cuff BP Diastolic Sitting 80 mmHg Lue reg cuff BP Systolic Standing 130 mmHg Lue reg cuff BP Diastolic Standing 80 mmHg Lue reg cuff Respiratory Rate 16 /min BMI (Body Mass Index) 29.6 kg/m2 Ejection Fraction 60-65% date 12/21/17 ECHO 03/04/2017 8:23am Height 65 inches 5'5" Weight 172.00 lb no shoes Heart Rate 78 /min BP Systolic Sitting 162 mmHg Rue reg cuff BP Diastolic Sitting 86 mmHg Rue reg cuff BP Systolic Standing 160 mmHg Rue reg cuff BP Diastolic Standing 84 mmHg Rue reg cuff Respiratory Rate 18 /min BMI (Body Mass Index) 28.6 kg/m2 Ejection Fraction 55-60% 01/20/2016-echo 01/30/2016 8:39am Height 65 inches 5'5" Weight 169.00 lb no shoes Heart Rate 80 /min BP Systolic Sitting 150 mmHg Ra lrg cuff BP Diastolic Sitting 90 mmHg Ra lrg cuff BP Systolic Standing 158 mmHg Ra lrg cuff BP Diastolic Standing 94 mmHg Ra lrg cuff Respiratory Rate 19 /min BMI (Body Mass Index) 28.1 kg/m2 Ejection Fraction 55-60% 01/20/16 06/19/2015 1:58pm Height 65 inches 5'5" Weight 171.00 lb Pain Level 7 BMI (Body Mass Index) 28.5 kg/m2 06/13/2015 8:01am Height 65 inches 5'5" Weight 170.00 lb w/o shoes Heart Rate 80 /min reg BP Systolic Sitting 130 mmHg Lue, reg cuff BP Diastolic Sitting 84 mmHg Lue, reg cuff BP Systolic Standing 126 mmHg Lue BP Diastolic Standing 84 mmHg Lue Respiratory Rate 18 /min BMI (Body Mass Index) 28.3 kg/m2 Ejection Fraction 55-60% as of 10/24/13 echo 11/11/2014 9:02am Height 65 inches 5'5" Weight 171.00 lb Pain Level 7 BMI (Body Mass Index) 28.5 kg/m2 05/31/2014 10:17am Height 65 inches 5'5" Weight 171.00 lb no shoes Heart Rate 68 /min BP Systolic Sitting 156 mmHg LA, reg cuff BP Diastolic Sitting 86 mmHg LA, reg cuff BP Systolic Standing 158 mmHg LA BP Diastolic Standing 86 mmHg LA Respiratory Rate 16 /min BMI (Body Mass Index) 28.5 kg/m2 04/04/2014 3:31pm Height 65 inches 5'5" Heart Rate 75 /min BP Systolic 144 mmHg BP Diastolic 73 mmHg 12/13/2013 11:22am Height 65 inches 5'5" Weight 170.00 lb without shoes Heart Rate 62 /min BP Systolic 136 mmHg LA reg cuff/ 124/80 st BP Diastolic 80 mmHg LA reg cuff/ 124/80 st BP Systolic Sitting 140 mmHg Ra reg cuff BP Diastolic Sitting 80 mmHg Ra reg cuff BP Systolic Standing 120 mmHg Ra reg cuff BP Diastolic Standing 80 mmHg Ra reg cuff Respiratory Rate 16 /min BMI (Body Mass Index) 28.3 kg/m2 08/23/2013 3:55pm Heart Rate 74 /min BP Systolic 154 mmHg BP Diastolic 84 mmHg 06/07/2013 11:10am Height 69 inches 5'9" Weight 165.00 lb Heart Rate 80 /min Regular BP Systolic Sitting 130 mmHg BP Diastolic Sitting 60 mmHg BMI (Body Mass Index) 24.4 kg/m2 04/12/2012 10:46am Height 69 inches 5'9" Weight 167.00 lb per pt Heart Rate 66 /min BP Systolic 132 mmHg BP Diastolic 84 mmHg BMI (Body Mass Index) 24.7 kg/m2 10/11/2011 10:50am Height 69 inches 5'9" Weight 163.00 lb Pt gave weight Heart Rate 68 /min regular BP Systolic Sitting 138 mmHg BP Diastolic Sitting 78 mmHg BMI (Body Mass Index) 24.1 kg/m2 04/07/2011 2:05pm Height 69 inches 5'9" Weight 161.00 lb Heart Rate 66 /min BP Systolic Sitting 128 mmHg BP Diastolic Sitting 70 mmHg BMI (Body Mass Index) 23.8 kg/m2 11/30/2010 1:45pm Height 69 inches 5'9" Weight 162.00 lb Heart Rate 80 /min BP Systolic Sitting 158 mmHg L BP Diastolic Sitting 82 mmHg L BMI (Body Mass Index) 23.9 kg/m2 05/11/2010 1:48pm Height 69 inches 5'9" Weight 175.00 lb Heart Rate 88 /min BP Systolic Sitting 176 mmHg L BP Diastolic Sitting 50 mmHg L BMI (Body Mass Index) 25.8 kg/m2 04/20/2010 1:20pm Height 69 inches 5'9" Weight 178.00 lb Heart Rate 75 /min BP Systolic Sitting 168 mmHg first bp 180/60 BP Diastolic Sitting 54 mmHg first bp 180/60 BP Systolic Standing 168 mmHg BP Diastolic Standing 52 mmHg BMI (Body Mass Index) 26.3 kg/m2 01/31/2007 2:25pm Height 66 inches 5'6" Weight 173.00 lb Heart Rate 72 /min BMI (Body Mass Index) 27.9 kg/m2 01/03/2007 1:26pm Height 66 inches 5'6" Weight 178.00 lb BP Systolic Sitting 174 mmHg BP Diastolic Sitting 68 mmHg BMI (Body Mass Index) 28.7 kg/m2 Results Test Date Facility Test Result H/L Range Note Oligoclonal Bands 08/28/2018 [facility] CSF Oligoclonal [address] [place] [address] [phone] Serum Oligoclonal Bands 2 bands Oligoclonal Proteins Interpret 1 bands <4 1 CSF Immunoglobulin 08/28/2018 [facility] CSF Immunoglobulin 0.54 <=0.85 G (Igg) [address] [place] [address] [phone] CSF Igg 4.7 mg/dL <=8.1 CSF Albumin 34.4 mg/dL Abnormal <=27.0 CSF IgG/Albumin Ratio 0.14 <=0.21 CSF Immunoglobulin G Synthesis 2.23 mg/24h <=12 Immunoglobulin G 1160 mg/dL 767 - 1590 Albumin 4510 mg/dL 2 Serum IgG/Albumin Ratio 0.26 <=0.40 3 [facility] PERIANESTHESIA NURSE Igg 08/28/2018 [facility] PERIANESTHESIA NURSE Negative Negative Serum/CSF [address] Infection IgG, [place] [address] CSF [phone] [place] PERIANESTHESIA NURSE Infection IgG, Interp See Comment 4 [place] PERIANESTHESIA NURSE Infection IgG, Serum See Comment 5 Cath Panel 04/23/2010 [facility] PTT (Aptt) 30.2 25.15-38.[address] [place] [address] [phone] CBC With 04/23/2010 [facility] White Blood 10.1 CUMM 4.8- 10.8 Manual Diff [address] [place] [address] [phone] Red Cell Count 4.73 CUMM 4.6-6.2 Hemoglobin 14.4 g/dL 14.0-18.0 Hematocrit 42 % 42-52 Mean Corpuscular Volume 88 um3 80-94 Mean Corpuscular Hemoglob 31 pg 27-31 Mean Corpuscular HGB Cone 35 g/dL 32-36 Redcell Distribution WDTH 12 % 10.5-15 Platelet Count 250 CUMM 150-450 Mean Platelet Volume 6.6 um3 Low 7.4-10.4 Polysegmented Neutrophil 84 % High 38-83 Band Neutrophil 1 % 0-8 Lymphocyte 7 % Low 25-47 Monocyte 4 % 0-13 Eosinophil 3 % 0-6 Atypical Lymph 1 % 0-6 Absolute Neutrophil Count 8.5 RBC Morphology NORMAL Protime 04/23/2010 [facility] Inr 0.95 0.82-1.17 6 [address] [place] [address] [phone] Protime 11.2 SEC 10.2-14.8 7 Basic Metabolic Panel 04/23/2010 [facility] Sodium 135 mmol/L 135-145 [address] [place] [address] [phone] Potassium 4.6 mmol/L 3.5-5.0 Chloride 100 mmol/L Low 101-111 Co2 (Carbon Dioxide) 28.0 mmol/L 22-32 Anion Gap 7.0 mmol/L 2-11 8 Glucose 108 mg/dL High 70-100 9 BUN 21 mg/dL 6-24 Creatinine 0.96 mg/dL 0.50-1.40 One Over Creatinine 1.00 BUN/Creatinine Ratio 21.9 High 8-20 Calcium 9.3 mg/dL 8.1-9.9 eGFR Non- 83.5 > 60 eGFR 101.1 > 60 10 1 The oligoclonal band assay detected 3 or fewer unique IgG bands in the CSF. This is a negative result. Test Performed by: [facility] [place] [address] 2 REFERENCE VALUE 3200 - 4800 3 Test Performed by: [facility] [address] 4 No antibodies to Lyme Borrelia species detected in cerebrospinal fluid. A negative result in a patient with appropriate exposure history and symptoms consistent with neuroinvasive Lyme disease should not be used to exclude infection. Testing for antibodies to Lyme Borrelia species in serum should be performed. ADDITIONAL INFORMATION This test was developed and its performance characteristics determined by [facility] in a manner consistent with CLIA requirements. This test has not been cleared or approved by the U.S. Food and Drug Administration. 5 CSF screen was negative for IgG-class antibodies to Lyme Borrelia species. Testing for IgG-class antibodies to Borrelia in serum is not indicated and was not performed. Test Performed by: [facility] - [facility] [address] [place] [address] 6 Recommended INR for Patients on Oral Anticoagulants Prophylaxis 2.0 - 3.0 Treatment of thrombosis 2.0 - 3.0 Prevention of embolism 2.0 - 3.0 Prevention of embolism from prosthetic heart valves 2.5 - 3.5 7 DIAGNOSIS,TREATMENT,AND THERAPY MUST BE BASED ON THE INR VALUE ALONE. 8 Anion gap measurement may be of limited value in the presence of any alkalosis, especially in a combined acid base disorder. . 9 Note change in reference range as of 01/11/08. The change was based on recommendations from the [employer]. 10 Because ethnic data is not always readily available, this report includes an eGFR for both -Americans and non- Americans. The National Kidney Disease Education Program (NKDEP) does not endorse the use of the MDRD equation for patients that are not between the ages of 18 and 70, are , have extremes of body size, muscle mass, or nutritional status, or are non- or non-. According to the National Kidney Foundation, irrespective of diagnosis, the stage of the disease is based on the level of kidney function: Stage Description GFR(mL/min/1.73 m(2)) 1 Kidney damage with normal or decreased GFR 90 2 Kidney damage with mild decrease in GFR 60-89 3 Moderate decrease in GFR 30-59 4 Severe decrease in GFR 15-29 5 Kidney failure <15 (or dialysis) Procedures Date Code Description Status 02/01/2018 75483 EKG Tracing & Interpretation Completed 12/21/2017 26177 ECHO Transthoracic, Real-Time 2D With Doppler And Color Completed Flow 12/21/2017 70931 ECHO Transthoracic, Real-Time 2D With Doppler And Color Completed Flow 03/04/2017 61700 EKG Tracing & Interpretation Completed 01/28/2016 62940 Stress Test Completed 01/20/2016 26856 ECHO Transthoracic, Real-Time 2D With Doppler And Color Completed Flow 06/19/201580545 Inject/Drain Joint/Bursa Major W/O US Completed 06/13/2015 89455 EKG Tracing & Interpretation Completed 11/11/201468833 Inject/Drain Joint/Bursa Major W/O US Completed 04/04/201414792 Inject/Drain Joint/Bursa Major W/O US Completed 12/13/2013 99280 EKG Tracing & Interpretation Completed 10/29/2013 90712 Treadmill Interp/Report Only Completed 10/29/2013 53006 Stress Test Supervsn W/Out I/R Completed 10/25/2013 01307 Treadmill Interp/Report Only Completed 10/25/2013 92552 Stress Test Supervsn W/Out I/R Completed 10/25/2013 03356 EKG, Interpretation Only Completed 10/24/2013 43842 ECHO Transthorasic Realtime 2D W Doppler & Color Flow Hosp Completed 08/23/201398515 Inject/Drain Joint/Bursa Major W/O US Completed 04/05/2013 36710 ECHO Transthoracic, Real-Time 2D With Doppler And Color Completed Flow 11/13/201289279 Inject/Drain Joint/Bursa Major W/O US Completed 04/12/2012 45580 EKG Tracing & Interpretation Completed 11/30/2010 45193 EKG Tracing & Interpretation Completed 11/18/2010 73420 ECHO Transthoracic, Real-Time 2D With Doppler And Color Completed Flow 04/28/2010 56333 Com RT And LT Catheterization Completed 04/28/2010 65054 Inj Proc LFT Vent/LFT Atrl Angio Completed 04/28/2010 45976 Aortic Root Inj Proc Completed 04/28/2010 13465 Coronary Angiography Completed 04/28/2010 66470 Coronary Angiography Completed 04/28/2010 04367 S/I/R Inj Proc Vent And Or Atrial Completed 04/28/2010 94946 Selective Coronary Angioplasty Completed 04/20/2010 30904 EKG Tracing & Interpretation Completed 02/07/2007 81693 Color Doppler Completed 02/07/2007 16219 Color Doppler Completed 02/07/2007 71135 Color Doppler Completed 02/07/2007 54058 Pulse Doppler & Continuous Wave Completed 02/07/2007 79032 Pulse Doppler & Continuous Wave Completed 02/07/2007 76870 Echocardiogram Completed 02/07/2007 08796 Echocardiogram Completed 02/07/2007 21025 Echocardiogram Completed Encounters Type Date Location Provider Dx Diagnosis Office Visit 10/04/2018 [facility] G91.2 (Idiopathic) normal 2:30p Services Of Roseanna Miller MD pressure hydrocephalus G91.9 Hydrocephalus, unspecified M41.9 Scoliosis, unspecified Office Visit 09/14/2018 11:48a [facility] Emilee Arbpriyanka, M62.82 Rhabdomyolysis nader Bynum MD Hospitalists L03.115 Cellulitis of right lower limb G91.2 (Idiopathic) normal pressure hydrocephalus R45.851 Suicidal ideations R26.89 Other abnormalities of gait and mobility Office Visit 09/13/2018 11:47a [facility] Emilee L03.115 Cellulitis of nader Bynum MD right lower limb Hospitalists M62.82 Rhabdomyolysis I10 Essential (primary) hypertension R45.851 Suicidal ideations Office Visit 09/12/2018 11:47a [facility] Emilee L03.115 Cellulitis of nader Bynum MD right lower limb Hospitalists M62.82 Rhabdomyolysis I10 Essential (primary) hypertension G91.2 (Idiopathic) normal pressure hydrocephalus R45.851 Suicidal ideations Office Visit 09/11/2018 [facility] Ty G91.2 (Idiopathic) normal 11:47a nader Bynum M.D. pressure Hospitalists hydrocephalus L03.115 Cellulitis of right lower limb M62.82 Rhabdomyolysis I10 Essential (primary) hypertension Office Visit 09/08/2018 [facility] G91.9 Hydrocephalus, 9:30a Services Of Roseanna Miller MD unspecified M47.896 Other spondylosis, lumbar region M43.16 Spondylolisthesis, lumbar region Office Visit 08/28/2018 [facility] G91.9 Hydrocephalus, 11:45a Neurologic Samy Phelps unspecified Services Of Roseanna R41.3 Other amnesia R26.89 Other abnormalities of gait and mobility Office Visit 08/01/2018 [facility] G91.9 Hydrocephalus, 11:15a Giuseppe Phelps M.D. unspecified Services Of Roseanna R41.3 Other amnesia R26.89 Other abnormalities of gait and mobility Office Visit 04/17/2018 [facility] G91.9 Hydrocephalus, 1:30p Services Of Roseanna Miller MD unspecified M47.896 Other spondylosis, lumbar region M43.16 Spondylolisthesis, lumbar region R29.2 Abnormal reflex F03.90 Unspecified dementia without behavioral disturbance Office Visit 02/01/2018 8:00a [facility] Zachary D. Z95.2 Presence of Of Roseanna Nevarez M.D. prosthetic heart valve I25.10 Athscl heart disease of [place] coronary artery w/o ang pctrs Office Visit 03/04/2017 8:30a [facility] Zachary D. I25.10 Athscl heart Of Roseanna Nevarez M.D. disease of [place] coronary artery w/o ang pctrs Z95.2 Presence of prosthetic heart valve I35.1 Nonrheumatic aortic (valve) insufficiency Office Visit 01/30/2016 8:00a [facility] Zachary D. I25.10 Athscl heart Of Roseanna Nevarez M.D. 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 I25.10 Athscl heart Of Roseanna Nevarez M.D. disease of [place] coronary artery w/o ang pctrs Z95.2 Presence of prosthetic heart valve R94.31 Abnormal electrocardiogram [ECG] [EKG] Office Visit 05/31/2014 10:30a [facility] Zahcary D. 424.1 Aortic Valve Of Roseanna Nevarez M.D. Disorder 414.01 Coronary Atherosclerosis [place] Office Visit 12/13/2013 11:15a [facility] Zachary D. 424.1 Aortic Valve Of Roseanna Nevarez M.D. Disorder 414.01 Coronary Atherosclerosis [place] 780.2 Syncope & Collapse Office Visit 10/25/2013 3:46p [facility] Claudia Rodriguez 780.2 Syncope & Assoc,nader Pablo Collapse Hospitalists 401.9 Hypertension Unspec 414.00 Coronary Atherosclerosis Unspec Type Vessel [place]raft Office Visit 10/25/2013 [facility] [place]ad[place], 780.09 Consciousness 10:21a Cardiology Of Samy Alteration Other [facility] 424.1 Aortic Valve Disorder Office Visit 10/24/2013 3:45p [facility] Cem Browning, 780.2 Syncope & Assoc,pc N.P. Collapse Hospitalists 401.9 Hypertension Unspec 414.00 Coronary Atherosclerosis Unspec Type Vessel [place]/Graft Office Visit 06/07/2013 11:00a [facility] Laina 424.1 Aortic Valve Rodriguez, D.O. Disorder 401.1 Hypertension Benign 414.01 Coronary Atherosclerosis [place] 272.4 Hyperlipidemia Other Unspec Office Visit 04/12/2012 11:00a [facility] Laina 424.1 Aortic Valve Rodriguez, D.O. Disorder 414.01 Coronary Atherosclerosis [place] 401.1 Hypertension Benign 272.4 Hyperlipidemia Other Unspec Office Visit 10/11/2011 11:00a [facility] Laina 424.1 Aortic Valve Rodriguez, D.O. Disorder 414.01 Coronary Atherosclerosis [place] 401.1 Hypertension Benign 272.4 Hyperlipidemia Other Unspec Office Visit 04/07/2011 2:20p [facility] Laina 424.1 Aortic Valve Rodriguez, D.O. Disorder 414.01 Coronary Atherosclerosis [place] 272.4 Hyperlipidemia Other Unspec 401.1 Hypertension Benign Office Visit 11/30/2010 [facility] 414.01 Coronary 2:00p Cardiology Jennifer, D.O. Atherosclerosis [place] 424.1 Aortic Valve Disorder 401.1 Hypertension Benign 272.4 Hyperlipidemia Other Unspec Office Visit 05/11/2010 [facility] L[facility]a 786.09 Dyspnea & 2:00p Cardiology Jennifer D.O. Respiratory Abnormalities Other 414.01 Coronary Atherosclerosis [place] 424.1 Aortic Valve Disorder 401.1 Hypertension Benign 272.4 Hyperlipidemia Other Unspec Office Visit 04/20/2010 1:40p [facility] Laina 424.1 Aortic Valve Rodriguez, D.O. Disorder 401.1 Hypertension Benign 272.4 Hyperlipidemia Other Unspec Office Visit 01/31/2007 2:30p [facility] Enoch Reynoso 796.2 Blood Pressure Assoc AT Samy Bui [place] Elevated [facility] W/O Hypertension 785.2 Murmur Cardiac Undiagnosed Office Visit 01/03/2007 1:30p [facility] Enoch Bui, 724.2 Lumbago [facility] Samy 796.2 Blood Pressure [place] Elevated W/O Hypertension Plan of Treatment Future Appointment(s):12/11/2018 2:30 pm - Ernesto [facility]ps M[facility]/04/2018 - Blanca Miller MDG91.2 (Idiopathic ) normal pressure hydrocephalusFollow up:Rv one week, one month, three months postop. Please obtain MRI and XR sameer and notify me when doneG91.9 Hydrocephalus , [id number] Scoliosis, unspecifiedNew Xrays:MRI Thoracic Spine W/O, Ordered: 10/04/18
[2018-11-02] MEDS ORDERED: Famotidine IV* 10 MG/ML 2 ML (20 mg) IV ONE (06:00)
[2018-11-02] MEDS ORDERED: Lactated Ringers 1000 ML Bag* 1,000 ML IV SCH (06:00)
[2018-11-02] MEDS ORDERED: Famotidine IV* 10 MG/ML 2 ML (20 mg) ONE (06:04)
[2018-11-02] MEDS ORDERED: Bacitracin INJECTION* 50,000 UNITS ONE ×2 (06:37→11:02)
[2018-11-02] MEDS ORDERED: Lidocaine 1% MPF wEPI 200,000* 30 ML SDV ONE (06:37)
[2018-11-02] MEDS ORDERED: Thrombin 5,000 UNITS* 1 APPLIC KIT - topical use - TOPICAL ONE (06:37)
[2018-11-02] MEDS ORDERED: Phenylephrine 10 MG/ML VIAL* 1 ML VIAL ONE (07:09)
[2018-11-02] MEDS ORDERED: Rocuronium* 10 MG/ML VIAL ONE ×2 (07:09→09:28)
[2018-11-02] MEDS ORDERED: Ondansetron INJ* 2 MG/ML VIAL ONE (07:09)
[2018-11-02] MEDS ORDERED: fentaNYL* 50 MCG/ML 5 ML VIAL (250 MCG VIAL) ONE (07:09)
[2018-11-02] MEDS ORDERED: Dexamethasone IV* 4 MG/ML 1 ML (4 MG) ONE (07:09)
[2018-11-02] MEDS ORDERED: Propofol* 10 MG/ML 20 ML BTL ONE (07:09)
[2018-11-02] MEDS ORDERED: Midazolam* 1 MG/ML 5 ML VIAL (5 MG) ONE (07:09)
[2018-11-02] MEDS ORDERED: Lidocaine 2% PF * 5 ML VIAL ONE ×2 (07:09→07:13)
[2018-11-02] MEDS ORDERED: EPHEDrine (Pressors)* 50 MG/ML VIAL ONE (07:09)
[2018-11-02] MEDS ORDERED: Artificial Tear OPHTH.OINT* 3.5 GM ONE (07:17)
[2018-11-02] MEDS ORDERED: Metoprolol Succinate XL TAB* 25 MG PO ONE (08:00)
[2018-11-02] MEDS ORDERED: Ondansetron INJ* 2 MG/ML VIAL IV PRN (10:34)
[2018-11-02] MEDS ORDERED: Acetaminophen IV 1GM/100ML * 1,000 MG/100 ML VIAL IVPB ONE (10:34)
[2018-11-02] MEDS ORDERED: Naloxone* 0.4 MG/ML 1 ML VIAL IV PRN (10:34)
[2018-11-02] MEDS ORDERED: fentaNYL* 50 MCG/ML 2 ML VIAL (100 MCG VIAL) IV PRN (10:34)
[2018-11-02] MEDS ORDERED: Morphine INJ* 2 MG/ML 1 ML SYRINGE (TWO MG - NEW SYRINGE VERSION) IV PRN (13:35)
[2018-11-02] MEDS: Lactated Ringers 1000 ML Bag* 1,000 ML IV SCH ×2 (15:00→23:11)
[2018-11-02] MEDS ORDERED: Aspirin EC TAB* 81 MG TAB.EC PO SCH (16:00)
--- NOTE | 2018-11-02 17:14 | PN ---
Date of Service: 11/02/18 - CONSULT Critical Care Services: 73 yo M with PMH of benign essential HTN, CAD, valvular disorder and normal pressure hydrocephalus went to OR 11/02 for placement of DIRECTOR CRITICAL CARE shunt. Post procedure admitted to ICU for further care. Vital Signs: Temp Pulse Resp BP SpO2 FiO2 97.1 F 81 16 161/81 95 11/02/18 13:10 11/02/18 15:47 11/02/18 15:47 11/02/18 15:47 11/02/18 15:47 Physical Exam: Gen:resting comfortably HEENT: Dressing to left head intact Lungs: nonlabored Cardiac: RRR Abdomen: soft, NTND Extremities: warm, dry. no edema Neuro: Alert, asking repeated questions (has short term memory loss at baseline ). Moving all extremities equally. Fluid Balance (Past 24 Hours): I= O= Net Intake & Output 10/31/18 11/01/18 11/02/18 11/03/18 06:59 06:59 06:59 06:59 Intake Total 2350 Output Total 1400 Balance 950 Weight 155 lb 155 lb Intake: IV Fluids 2350 LR 2100 NS 250ML, Vancomycin 250 1000MG Output: Rehman 1400 Labs: None Studies: 11/02 CT brain: DIRECTOR CRITICAL CARE shunt tip projecting between frontal horns of lateral ventricles. Distal tip may be within the frontal horn of the left lateral ventricle. 11/02: CT abdomen: DIRECTOR CRITICAL CARE shunt in place Nutrition: NPO Impression: 73 yo M with normal pressure hydrocephalus, went to OR on 11/02 for DIRECTOR CRITICAL CARE shunt placement. Post procedure admitted to ICU for further care. Plan: Cardiovascular: (1) benign essential HTN; (2) CAD; (3) Hx of aortic valve disorder -- HR 56-81 -- SBP 104-161 -- Telemetry -- ASA -- Metoprolol -- Spironolactone -- PRN Hydralazine for goal SBP < 140 Home meds: ASA, Spironolactone, Metoprolol Pulmonary: No acute issues -- RR 12-18 -- sats 98-100on 2L NC -- CXR: None Home meds: None Gastrointestinal: No acute issues -- CT abd pelvis: DIRECTOR CRITICAL CARE Shunt in place. -- diet: CLD. Advance to regular in the morning -- bowel regimen: Miralax -- ulcer prophylaxis: Not indicated at this time Home meds: Miralax Endocrine: No acute issues -- monitor BGs Home meds: None Renal: No acute issues -- UOP: 140 ml/hr -- Cr ordered with AM labs -- Lytes Na ordered with AM labs K ordered with AM labs Ca ordered with AM labs Mag ordered with AM labs Phos ordered with AM labs -- IVF: LR @ 75ml/hr -- Finasteride & Tamsulosin -- Spironolactone Home meds: Tamsulosin, Finasteride, Spironolactone Infectious disease: No acute issues -- Tmax 98.6 -- WBC ordered with AM labs -- Micro None -- ABX perioperative Home meds: None Neurologic: (1) Normal pressure hydrocephalus s/p DIRECTOR CRITICAL CARE shunt placement; (2) hx of amnesia; (3) hx of gait disturbance -- CT brain: DIRECTOR CRITICAL CARE shunt tip projecting between frontal horns of lateral ventricles. Distal tip may be within the frontal horn of the left lateral ventricle. -- Celexa -- PRN Percocet & Morphine as needed for pain control -- PT -- Social work consult for rehab Home meds: Tylenol, Celexa Hematological: No acute issues -- Hgb ordered with AM labs -- Plt ordered with AM labs -- Coags ordered with AM labs -- DVT prophylaxis: SCDs -- ASA Home meds: ASA Metabolic: No acute issues Home meds: None Other: -- Cholecalciferol -- Cynaocobalamin -- MVI Home meds: Cholecalciferol, Cynaocobalamin, Vit D3, Vit B12, Coq-10, MVI Deep vein thrombosis prophylaxis: SCDs Dietary: Not indicated at this time Condition: stable Prognosis: guarded Code status: DNR Disposition:admitted to ICU postop Cumulative time spent in the care of this patient (excluding any procedure time) : at least 30 minutes. Patient care included clinical interview (with patient and/or family), bedside exam of the patient, review of labs, x-rays, and other ancillary data, coordination of (respiratory, nursing care, review of patient's records, discussion regarding patients management with involved consultants, primary physician, pharmacists, and other healthcare personnel (dietary, case management , physical/occupational therapy etc.) Critical Care Time: 30
--- NOTE | 2018-11-02 17:18 | OP ---
DATE OF OPERATION: 11/02/18 - ROOM #ICU-12 DATE OF : 43 SURGEON: Blanca Miller MD. DENTAL APPLIANCE MECHANIC: Phoenix Bailey PA-C. The case was done with the surgical PA because of the complexity of the case. ANESTHESIA: General. PRE-OP DIAGNOSIS: Normal pressure hydrocephalus. POST-OP DIAGNOSIS: Normal pressure hydrocephalus. OPERATIVE PROCEDURE: The patient underwent right frontal ventriculoperitoneal shunt placement with the assistance of intraoperative navigation. ESTIMATED BLOOD LOSS: 20 cc. COMPLICATIONS: None. SUMMARY: The patient is a very pleasant 73-year-old gentleman with a diagnosis of normal pressure hydrocephalus, who benefited from a large volume lumbar puncture. After failing conservative treatment modalities, he was offered the option of surgical intervention in the form of right frontal FANCY SEWER shunt placement. After all expectations, limitations, and possible complications of the procedure had been explained in detail to the patient and his family, including his two daughters, with complications including, but not limited to bleeding, infection, risk of injury to adjacent structures, paralysis, , need for additional procedures, stroke, blindness, cancer, malposition of hardware, need for additional procedures, injury to intra-abdominal or intrathoracic contents, injury to large vessels, hemorrhage, anesthesia risks, the patient and his family agreed to proceed with surgery. Informed consent was obtained. The patient and his daughters understood that his condition may not improve and in fact may get worse after the surgery and that he may need to have additional procedures in the future. He also understood that intraoperative plan may be modified according to intra-operative findings and conditions. He also understood that he may require to undergo several revisions for reposition of hardware or for some malfunction, disconnection, or infection. He also understood that the patient may need prolonged ICU stay, prolonged hospitalization, prolonged rehabilitation, need for tracheostomy or gastrostomy, or prolonged dependence on the ventilator, inability to improve, worsening of his neurological state, development of subdural hematomas, or revert to hydrocephalus. The patient also understood that the case may be abandoned or done in more than one stages. DESCRIPTION OF PROCEDURE: The patient was brought to the operating room, was placed under general anesthesia by the anesthesia team. He was carefully positioned supine on the operative table and his right shoulder was carefully elevated, his head was turned slightly towards the left side and secured on a gel doughnut head of talent management. Hair was removed with surgical clippers. After proper surgical position and patient identification, the skin incision sites were marked on the skin, one on the right frontal Jian point and one in the right postauricular area and one in the abdomen. The patient was registered with intraoperative [employer] navigation. After confirmation of excellent intraoperative accuracy, the skin was prepped and draped in a standard fashion and appropriate surgical pause and patient identification, the skin incision sites were infiltrated with local anesthetic. A #10 surgical blade was used to incise the right frontal incision in a semi-curvilinear fashion. The skin was elevated with pickups and Bovie cautery while a small amount of the periosteum was left inside in order to secure the FANCY SEWER shunt catheter later. A bur hole was then performed with a high-speed drill and the dura was gently coagulated and incised with #11 surgical blade. The incision was covered with sterile sponge. A second incision in the posterior auricular area was incised with #10 surgical blade and self-retaining retractors were introduced into the field. The abdominal skin was incised with #10 surgical blade. The incision was carried down to the anterior sheath of the rectus muscle with Bovie cautery. Self-retaining retractors were introduced into the field and the anterior sheath of the rectus muscle was then gently elevated and was divided with Metzenbaum scissors. The rectus abdominis muscle was then gently dissected and the posterior sheath was identified, which was elevated with mosquito clamps and incised with Metzenbaum scissors. The peritoneum was then identified and incised with Metzenbaum scissors after reposition of the mosquitoes and careful inspection of intraperitoneal fat and bowel was identified while the red rubber catheter revealed good flow. Then, attention was brought to tunnel the skin between the 2 incisions. Periosteum elevator was used to tunnel the right frontal and right posterior auricular incision and the distal peritoneal catheter was attached into the Strata Medtronic valve, which was preset at a setting of 2.5. The distal catheter was then passed with the assistance of 2-0 silk tie and the valve was secured in place and preparation for the connection with the proximal catheter. The tunnel was used to tunnel the skin between the posterior auricular incision and the abdominal incision and the distal peritoneal catheter was passed to the abdominal incision. The wounds were covered with a wet sponge. Then, the proximal ventricular catheter was brought into the field and the guided stylet was inserted under stereotactic navigation. The catheter was passed into the ventricle, free flow of spinal fluid was then returned, confirmed an excellent placement of the catheter. Then, the catheter was cut in size and was connected to the valve with rubber mosquitoes. 2-0 ties were used to secure the ventricular catheter into the proximal end of the Strata valve and the right angle guide was secured in the periosteum with 2-0 silk sutures. The shunt valve was pumping and filling very nicely and excellent flow of CSF was found into the distal end of the peritoneal catheter, while proximal and distal occlusion of the catheter confirmed excellent proximal and distal flow. Then, the distal peritoneal catheter was gently inserted into the peritoneum after placing 2-0 catgut suture as a pursestring to the peritoneum. This was gently tied and the wound was closed by layers with approximation of the anterior sheath with 2-0 interrupted Vicryl sutures while the subcutaneous tissue was approximated with interrupted 2-0 Vicryl sutures. Then after copious irrigation and confirmation of meticulous hemostasis, all wounds were closed by layers with 2-0 inverted interrupted Vicryl sutures and 4-0 inverted interrupted Vicryl sutures. The skin was covered with Dermabond. At the end of the procedure, all counts were reported to be correct. The patient remained hemodynamically stable throughout the case. The patient was then extubated and was transferred to Recovery in excellent condition. The case was done with the assistance of a surgical PA because of the complexity of the case. [id number]/CPS #: [id number] SATHISH
[2018-11-02] MEDS: HYDROcodone/ACETAMIN 5-325 MG* 1 TAB PO PRN (17:50)
[2018-11-02] MEDS: Citalopram TAB* 20 MG PO SCH (17:50)
[2018-11-02] MEDS: Spironolactone TAB* 25 MG PO SCH (17:50)
[2018-11-02] MEDS: Cholecalciferol TAB* 1000 UNITS PO SCH (17:50)
[2018-11-02] MEDS: Multivitamins/Minerals TAB PO SCH (17:50)
[2018-11-02] MEDS: Cyanocobalamin TAB* 500 MCG PO SCH (17:50)
[2018-11-02] MEDS: Finasteride TAB* 5 MG PO SCH (17:51)
[2018-11-02] MEDS: Tamsulosin CAP* 0.4 MG PO SCH (17:51)
[2018-11-02] MEDS: Metoprolol Succinate XL TAB* 25 MG PO SCH (20:50)
[2018-11-03] MEDS: hydrALAZINE IV* 20 MG/ML VIAL IV SLOW PU PRN ×2 (03:13→16:35)
[2018-11-03 05:00] LABS: Hematocrit 38 % (42-52); Mean Corpuscular HGB Conc 35 g/dL (31-36); Mean Corpuscular Hemoglobin 30 pg (27-31); Mean Corpuscular Volume 87 fL (80-94); Mean Platelet Volume 6.7 fL (7.4-10.4); Platelet Count 228 10^3/uL (150-450); Red Blood Count 4.35 10^6 /uL (4.18-5.48); Red Cell Distribution Width 14 % (10-15); White Blood Count 14.8 10^3/uL (3.5-10.8)
[2018-11-03 05:11] LABS: BUN/Creatinine Ratio 16.3 (8-20); Calcium 9.8 mg/dL (8.6-10.3); EGFR African American 105.2 (>60); EGFR Non-African American 86.9 (>60); Magnesium 1.8 mg/dL (1.9-2.7)
[2018-11-03] MEDS ORDERED: hydrALAZINE IV* 20 MG/ML VIAL IV SLOW PU ONE (05:23)
[2018-11-03 05:36] LABS: Activated Partial Thrombo Time 32.7 seconds (26.0-38.0); INR 1.08 (0.82-1.09)
[2018-11-03] MEDS: amLODIPine TAB* 5 MG PO SCH (05:43)
[2018-11-03] MEDS: HYDROcodone/ACETAMIN 5-325 MG* 1 TAB PO PRN (05:54)
[2018-11-03] MEDS: Aspirin EC TAB* 81 MG TAB.EC PO SCH ×2 (08:25→08:26)
[2018-11-03] MEDS: Heparin VIAL(*) 5000 UNITS/ML VIAL (FIVE THOUSAND) SUBCUT SCH ×2 (08:27→21:03)
[2018-11-03] MEDS: Finasteride TAB* 5 MG PO SCH (08:28)
[2018-11-03] MEDS: Multivitamins/Minerals TAB PO SCH (08:31)
[2018-11-03] MEDS: Spironolactone TAB* 25 MG PO SCH (08:31)
[2018-11-03] MEDS: Metoprolol Succinate XL TAB* 25 MG PO SCH ×2 (08:31→21:03)
[2018-11-03] MEDS: Tamsulosin CAP* 0.4 MG PO SCH (08:31)
[2018-11-03] MEDS: Cholecalciferol TAB* 1000 UNITS PO SCH (08:32)
[2018-11-03] MEDS: Citalopram TAB* 20 MG PO SCH (08:33)
[2018-11-03] MEDS: Cyanocobalamin TAB* 500 MCG PO SCH (08:33)
[2018-11-03] MEDS ORDERED: Metoclopramide TAB* 10 MG PO ONE (10:35)
--- NOTE | 2018-11-03 11:48 | PN ---
Date of Service: 11/03/18 - HD 2 Critical Care Services: 73 yo M with PMH of benign essential HTN, CAD, valvular disorder and normal pressure hydrocephalus went to OR 11/02 for placement of BUSINESS DEVELOPMENT SALES EXECUTIVE shunt. Post procedure admitted to ICU for further care. 11/03: Nausea and vomiting x 1 secondary to ileus. No other overnight events. Vital Signs: Temp Pulse Resp BP SpO2 FiO2 98.4 F 90 23 143/78 92 11/03/18 07:22 11/03/18 07:00 11/03/18 07:00 11/03/18 07:00 11/03/18 07:00 Physical Exam: Gen: alert, sitting up in chair HEENT: dressing intact Lungs: nonlabored Cardiac: RRR Abdomen: soft, minimally distending Extremities: warm, dry, no edema Neuro: conversant. moving extremities equally Fluid Balance (Past 24 Hours): I= O= Net Intake & Output 11/01/18 11/02/18 11/03/18 11/04/18 06:59 06:59 06:59 06:59 Intake Total 3271 Output Total 2300 Balance 971 Weight 155 lb 159 lb 9.835 oz Intake: IV Fluids 3181 LR 2931 NS 250ML, Vancomycin 250 1000MG Oral 90 Output: Urine 150 Rehman 2150 Other: Estimated Void Small # Voids 1 Labs: Laboratory Results - last 24 hr 11/03/18 11/03/18 11/03/18 04:40 04:40 04:40 WBC 14.8 H RBC 4.35 Hgb 13.0 L Hct 38 L MCV 87 MCH 30 MCHC 35 RDW 14 Plt Count 228 MPV 6.7 L INR (Anticoag Therapy) 1.08 APTT 32.7 Sodium 134 L Potassium 4.0 Chloride 101 Carbon Dioxide 26 Anion Gap 7 BUN 14 Creatinine 0.86 Est GFR ( Amer) 105.2 Est GFR (Non-Af Amer) 86.9 BUN/Creatinine Ratio 16.3 Glucose 129 H Calcium 9.8 Magnesium 1.8 L Studies: 11/02 CT brain: BUSINESS DEVELOPMENT SALES EXECUTIVE shunt tip projecting between frontal horns of lateral ventricles. Distal tip may be within the frontal horn of the left lateral ventricle. 11/02: CT abdomen: BUSINESS DEVELOPMENT SALES EXECUTIVE shunt in place Nutrition: regular diet Impression: 73 yo M with normal pressure hydrocephalus, went to OR on 11/02 for BUSINESS DEVELOPMENT SALES EXECUTIVE shunt placement. Cleared for transfer to surgical floor. Plan: Cardiovascular: (1) benign essential HTN; (2) CAD; (3) Hx of aortic valve disorder -- HR 68-96 -- SBP 125-176 -- Telemetry -- ASA -- Metoprolol, Amlodipine -- Spironolactone -- PRN Hydralazine for goal SBP < 140 Home meds: ASA, Spironolactone, Metoprolol Pulmonary: No acute issues -- RR 13-25 -- sats 90-100on RA -- CXR: None Home meds: None Gastrointestinal: (1) Postop Ileus -- CT abd pelvis: BUSINESS DEVELOPMENT SALES EXECUTIVE Shunt in place. -- diet: CLD, await bowel function before advancing -- bowel regimen: Miralax. reglan x 1 -- ulcer prophylaxis: Not indicated at this time Home meds: Miralax Endocrine: No acute issues -- monitor BGs Home meds: None Renal: (1) BPH -- UOP: 96 ml/hr -- Cr 0.86 -- Lytes Na 134, follow trend K 4.0 Ca 9.8 Mag 1.8, replace -- IVF: LR @ 75ml/hr, HL as on diet -- Finasteride & Tamsulosin -- Spironolactone Home meds: Tamsulosin, Finasteride, Spironolactone Infectious disease: (1) Leukocytosis -- Tmax 98.6 -- WBC 14.8, likely reactive, follow trend -- Micro None -- ABX perioperative Home meds: None Neurologic: (1) Normal pressure hydrocephalus s/p BUSINESS DEVELOPMENT SALES EXECUTIVE shunt placement; (2) hx of amnesia; (3) hx of gait disturbance -- CT brain: BUSINESS DEVELOPMENT SALES EXECUTIVE shunt tip projecting between frontal horns of lateral ventricles. Distal tip may be within the frontal horn of the left lateral ventricle. -- Celexa -- PRN Percocet & Morphine as needed for pain control -- PT -- Social work consult for rehab Home meds: Tylenol, Celexa Hematological: (1) Mild anemia -- Hgb 13.0, follow trend -- Plt 228 -- Coags IRN 1.08 PTT 32.7 -- DVT prophylaxis: SCDs, SQ Heparin -- ASA Home meds: ASA Metabolic: No acute issues Home meds: None Other: -- Cholecalciferol -- Cynaocobalamin -- MVI Home meds: Cholecalciferol, Cynaocobalamin, Vit D3, Vit B12, Coq-10, MVI Deep vein thrombosis prophylaxis: SCDs, SQ Heparin Dietary: Not indicated at this time Condition: stable Prognosis: guarded Code status: DNR Disposition:admitted to ICU postop Cumulative time spent in the care of this patient (excluding any procedure time) : at least 30 minutes. Patient care included clinical interview (with patient and/or family), bedside exam of the patient, review of labs, x-rays, and other ancillary data, coordination of (respiratory, nursing care, review of patient's records, discussion regarding patients management with involved consultants, primary physician, pharmacists, and other healthcare personnel (dietary, case management , physical/occupational therapy etc.) Critical Care Time: 30
[2018-11-03] MEDS ORDERED: Magnesium Sulfate 1 GM IV* 1 GM/100 ML BAG IV ONE (12:00)
[2018-11-03] MEDS: Lactated Ringers 1000 ML Bag* 1,000 ML IV SCH ×3 (12:01→12:48)
--- NOTE | 2018-11-03 14:01 | PN ---
Progress Note - Progress Note Date of Service: 11/03/18 SOAP: Subjective: 73 y/o male s/p CHROME WORKER shunt POD #1, patient is recovering well after procedure. Patient denies headaches, nausea, vomiting. changes in strength or loss of sensation in extremities. Patient indicates that he feels better and has no complaints at this time. Objective: Patient laying bed comfortable with,NAD Neruo:GCS 15, A&o X 3, CN II - XII intact, EOM intact, negative Romberg test, motor strength in all extremities 5/5, sensation intact with light touch. Derm wound C/DI Assessment: [address] post CHROME WORKER shunt placement POD #1, recovering well, has so air in peritoneum seen on abdominal CT, but is stable at this time. Plan: continue clear liquids continue neuro checks will consider transfer to step down unit. walk with PT/OT
[2018-11-04] MEDS ORDERED: Lisinopril TAB* 10 MG PO ONE (00:22)
--- NOTE | 2018-11-04 00:25 | PN ---
Hospitalist Progress Note Date of Service: 11/04/18 Called for BP > 140, to clarify BP goal. Seems pt was ordered for hydralazine to be given if BP > 140. Confirmed with RN. Will also order lisinopril 10mg with goal to reduce need for hydralazine IV. Noted that he has BMP ordered for the morning.
[2018-11-04] MEDS ORDERED: Lisinopril TAB* 10 MG ONE (00:30)
[2018-11-04] MEDS: hydrALAZINE IV* 20 MG/ML VIAL IV SLOW PU PRN (00:31)
[2018-11-04] MEDS: Lactated Ringers 1000 ML Bag* 1,000 ML IV SCH ×2 (02:19→15:42)
[2018-11-04 06:19] LABS: Hematocrit 35 % (42-52); Hemoglobin 11.9 g/dL (14.0-18.0); Mean Corpuscular HGB Conc 34 g/dL (31-36); Mean Corpuscular Hemoglobin 30 pg (27-31); Mean Corpuscular Volume 87 fL (80-94); Mean Platelet Volume 6.7 fL (7.4-10.4); Platelet Count 168 10^3/uL (150-450); Red Blood Count 3.97 10^6 /uL (4.18-5.48); Red Cell Distribution Width 14 % (10-15); White Blood Count 8.7 10^3/uL (3.5-10.8)
[2018-11-04 06:38] LABS: BUN/Creatinine Ratio 16.9 (8-20); Calcium 9.2 mg/dL (8.6-10.3); EGFR African American 109.6 (>60); EGFR Non-African American 90.6 (>60); Potassium 3.8 mmol/L (3.5-5.0)
[2018-11-04] MEDS: Cholecalciferol TAB* 1000 UNITS PO SCH (08:52)
[2018-11-04] MEDS: Cyanocobalamin TAB* 500 MCG PO SCH (08:53)
[2018-11-04] MEDS: Metoprolol Succinate XL TAB* 25 MG PO SCH ×2 (08:53→20:42)
[2018-11-04] MEDS: Spironolactone TAB* 25 MG PO SCH (08:53)
[2018-11-04] MEDS: Aspirin EC TAB* 81 MG TAB.EC PO SCH (08:53)
[2018-11-04] MEDS: Citalopram TAB* 20 MG PO SCH (08:53)
[2018-11-04] MEDS: Finasteride TAB* 5 MG PO SCH (08:53)
[2018-11-04] MEDS: Heparin VIAL(*) 5000 UNITS/ML VIAL (FIVE THOUSAND) SUBCUT SCH ×2 (08:54→20:43)
[2018-11-04] MEDS: Tamsulosin CAP* 0.4 MG PO SCH (08:54)
[2018-11-04] MEDS: Multivitamins/Minerals TAB PO SCH (08:54)
[2018-11-04] MEDS: amLODIPine TAB* 5 MG PO SCH (08:54)
[2018-11-04] MEDS ORDERED: Lisinopril TAB* 10 MG PO SCH (09:00)
[2018-11-04] MEDS: Polyethylene Glycol 3350* 17 GM PACKET PO PRN (09:05)
--- NOTE | 2018-11-04 09:30 | PN ---
Progress Note - Progress Note Date of Service: 11/04/18 SOAP: Subjective: 73 y/o male s/p COMPRESSED GASES TESTER shunt placement POD #2, patient has been stable denies head aches, nausea or vomiting. He has not had a bowel movement or passed gas since procedure. He has been more study on his feet when walking with PT. Objective: Vital Signs - 8 hr 11/04/11/04/11/04/18 03:34 07:55 08:00 Temperature 98.6 F 98.8 F Pulse Rate 69 69 Respiratory 18 17 17 Rate Blood Pressure 116/56 113/54 (mmHg) O2 Sat by Pulse 94 93 93 Oximetry general:Patient sitting upright in chair, comfortable, NAD Neruo: GCS 1, A&0 x 3, CN II - XII grossly intact. motor strength 5/5 in all extremities Dem: scalp wound C/D/I, abdomen wound C/D/I Abdomen: firm distended, non tender Assessment: 73 y/o male post COMPRESSED GASES TESTER shunt placement POD # 2, patient is stable, ambulation is improving. He still need to pass gas and have bowel movement. Plan: Continue liquid diet at this time Continue to ambulate with assistance Continue to monitor blood pressure, keep below 140 Consider giving patient MOM
[2018-11-04] MEDS ORDERED: Docusate CAP* 100 MG PO PRN (09:35)
[2018-11-04] MEDS ORDERED: Senna TAB PO PRN (09:36)
--- NOTE | 2018-11-04 09:41 | PN ---
Subjective Date of Service: 11/04/18 Interval History: no BM or passing gas since surgery. Does not have a clear memory of when BM before that was. No N/V today, but did yesterday. No abdominal pain at baseline but with palpation some tenderness and slight guarding. Afebrile. Given 10mg lisinopril last night and 5mg amldopine this AM as SBP 148 (goal had been <140) no f/c, chest pain, SOB. Objective Active Medications: Hydrocodone Bitart/Acetaminophen ([place] 5-325 Tab*) 2 tab PO Q4H PRN PRN Reason: marked pain Last Admin: 11/03/18 05:54 Dose: 2 tab Amlodipine Besylate (Norvasc Tab*) 5 mg PO 0900 [facility] Last Admin: 11/04/18 08:54 Dose: 5 mg Aspirin (Aspirin Ec Tab*) 81 mg PO DAILY [facility] Last Admin: 11/04/18 08:53 Dose: 81 mg Cholecalciferol (Vitamin D Tab*) 5,000 units PO DAILY [facility] Last Admin: 11/04/18 08:52 Dose: 5,000 units Citalopram Hydrobromide (Celexa Tab*) 20 mg PO DAILY [facility] Last Admin: 11/04/18 08:53 Dose: 20 mg Cyanocobalamin (Vitamin B12 Tab*) 1,000 mcg PO DAILY [facility] Last Admin: 11/04/18 08:53 Dose: 1,000 mcg Docusate Sodium (Colace Cap*) 100 mg PO BID PRN PRN Reason: CONSTIPATION Finasteride (Proscar Tab*) 5 mg PO DAILY [facility] Last Admin: 11/04/18 08:53 Dose: 5 mg Heparin Sodium (Porcine) (Heparin Vial(*)) 5,000 units SUBCUT Q12HR [facility] Last Admin: 11/04/18 08:54 Dose: 5,000 units Hydralazine HCl (Apresoline Iv*) 5 mg IV SLOW PU Q6H PRN PRN Reason: SYSTOLIC BP GREATER THAN: Last Admin: 11/04/18 00:31 Dose: 5 mg Lactated Ringer's (Lactated Ringers 1000 Ml Bag*) 1,000 mls @ 75 mls/hr IV .per rate [facility] Last Admin: 11/04/18 02:19 Dose: 75 mls/hr Lisinopril (Prinivil Tab*) 10 mg PO BEDTIME [facility] Metoprolol Succinate (Toprol Xl Tab*) 25 mg PO BID [facility] Last Admin: 11/04/18 08:53 Dose: 25 mg Morphine Sulfate (Morphine Inj (Syringe))*) 2 mg IV Q2H PRN PRN Reason: PAIN Multivitamins/Minerals (Theragran/Minerals Tab*) 1 tab PO DAILY [facility] Last Admin: 11/04/18 08:54 Dose: 1 tab Polyethylene Glycol/Electrolytes (Miralax*) 17 gm PO DAILY PRN PRN Reason: CONSTIPATION Last Admin: 11/04/18 09:05 Dose: 17 gm Spironolactone (Aldactone Tab*) 25 mg PO DAILY [facility] Last Admin: 11/04/18 08:53 Dose: 25 mg Tamsulosin HCl (Flomax Cap*) 0.4 mg PO DAILY [facility] Last Admin: 11/04/18 08:54 Dose: 0.4 mg Vital Signs - 8 hr 11/04/18 11/04/18 11/04/18 03:34 07:55 08:00 Temperature 98.6 F 98.8 F Pulse Rate 69 69 Respiratory 18 17 17 Rate Blood Pressure 116/56 113/54 (mmHg) O2 Sat by Pulse 94 93 93 Oximetry Oxygen Devices in Use Now: None Appearance: NAD Eyes: No Scleral Icterus Ears/Nose/Mouth/Throat: NL Teeth, Lips, Gums Neck: NL Appearance and Movements; NL JVP, Trachea Midline Respiratory: Symmetrical Chest Expansion and Respiratory Effort, Clear to Auscultation Cardiovascular: - - ANTONIA 2/6, RRR Abdominal: - - distended, slightly tender, slight guarding. no rebound tenderness Extremities: No Edema Skin: No Rash or Ulcers Neurological: Alert and Oriented x 3, NL Muscle Strength and Tone Lines/Tubes/Other Access: Clean, Dry and Intact Grubbs Nutrition: Taking PO's Result Diagrams: 11/04/18 06:12 11/04/18 06:12 Additional Lab and Data: Laboratory Results - last 24 hr 11/04/18 11/04/18 06:12 06:12 WBC 8.7 RBC 3.97 L Hgb 11.9 L Hct 35 L MCV 87 MCH 30 MCHC 34 RDW 14 Plt Count 168 MPV 6.7 L Sodium 134 L Potassium 3.8 Chloride 103 Carbon Dioxide 29 Anion Gap 2 BUN 14 Creatinine 0.83 Est GFR ( Amer) 109.6 Est GFR (Non-Af Amer) 90.6 BUN/Creatinine Ratio 16.9 Glucose 91 Calcium 9.2 Magnesium 2.0 Microbiology and Other Data: Microbiology 11/02/18 16:15 Nasal Nasal Screen MRSA (PCR) - Final Mrsa Not Detected Assess/Plan/Problems-Billing Assessment: 73 yo male PMH b/p, CAD s/p CABG, Aortic Insufficiency s/p valve replacement, BPH, NPH now s/p right BAREBACK RIDER shunt placed 11/02. Course complicated by Ileus. - Patient Problems (1) NPH (normal pressure hydrocephalus) Current Visit: No Status: Acute Code(s): G91.2 - (IDIOPATHIC) NORMAL PRESSURE HYDROCEPHALUS SNOMED Code(s): 21642507 Comment: POD #2 from shunt Management per Neurosurgery PT, eventually back to [facility] with goal to home eventually if gait stability improves. (2) Ileus Current Visit: Yes Status: Acute Code(s): K56.7 - ILEUS, UNSPECIFIED SNOMED Code(s): 976492136 Comment: continue miralax prn (first dose this AM). Add colace and senna. (3) HTN (hypertension) Current Visit: No Status: Acute Code(s): I10 - ESSENTIAL (PRIMARY) HYPERTENSION SNOMED Code(s): 71022280 Comment: Continue home doses of metoprolol succinate 25mg BID and spironolactone 25mg. Has been added lisinopril 10mg and amlodipine 5mg overnight for SBP 148. Currently 110s. Monitor (4) BPH (benign prostatic hyperplasia) Current Visit: Yes Status: Acute Code(s): N40.0 - BENIGN PROSTATIC HYPERPLASIA WITHOUT LOWER URINRY TRACT SYMP SNOMED Code(s): 704098102 Comment: Continue finasteride and tamsulosin. had to have grubbs replaced yesterday, won't attempt removal until abdominal distention 2/2 ileus resolved. (5) Depression Current Visit: Yes Status: Acute Code(s): F32.9 - MAJOR DEPRESSIVE DISORDER , SINGLE EPISODE, UNSPECIFIED SNOMED Code(s): 58093221 Comment: restart home citalopram Status and Disposition: inpatient for continued Ileus, eventually back to [facility].
[2018-11-04] MEDS ORDERED: Citalopram TAB* 20 MG PO SCH (10:00)
[2018-11-04] MEDS: Lisinopril TAB* 10 MG PO SCH (20:42)
[2018-11-05] MEDS: Lactated Ringers 1000 ML Bag* 1,000 ML IV SCH (04:58)
[2018-11-05] MEDS: Spironolactone TAB* 25 MG PO SCH (08:24)
[2018-11-05] MEDS: Cholecalciferol TAB* 1000 UNITS PO SCH (08:24)
[2018-11-05] MEDS: amLODIPine TAB* 5 MG PO SCH (08:24)
[2018-11-05] MEDS: Polyethylene Glycol 3350* 17 GM PACKET PO PRN (08:24)
[2018-11-05] MEDS: Citalopram TAB* 20 MG PO SCH (08:25)
[2018-11-05] MEDS: Multivitamins/Minerals TAB PO SCH (08:25)
[2018-11-05] MEDS: Aspirin EC TAB* 81 MG TAB.EC PO SCH (08:25)
[2018-11-05] MEDS: Tamsulosin CAP* 0.4 MG PO SCH (08:25)
[2018-11-05] MEDS: Cyanocobalamin TAB* 500 MCG PO SCH (08:25)
[2018-11-05] MEDS: Metoprolol Succinate XL TAB* 25 MG PO SCH ×2 (08:25→21:13)
[2018-11-05] MEDS: Finasteride TAB* 5 MG PO SCH (08:26)
[2018-11-05] MEDS: Heparin VIAL(*) 5000 UNITS/ML VIAL (FIVE THOUSAND) SUBCUT SCH ×2 (08:26→21:13)
--- NOTE | 2018-11-05 11:18 | PN ---
Progress Note - Progress Note Date of Service: 11/05/18 SOAP: Subjective: 73 y/o male post SUEDE BRUSHER shunt placement POD # 3, patient has been stable overnight with no acute changes. Patient states feels well, denies headache, nause or vomiting, or abdomen pain. He has been on liquid diet due air into peritoneum and had not passed gas or had a bowel movement. This morning he reports passing small amounts of gas, but still had not had a bowel movement. Objective: Vital Signs - 12 hr Temp Pulse Resp BP Pulse Ox 11/05/18 08:08 98.4 F 54 17 117/55 95 11/05/18 08:00 17 95 11/05/18 04:01 98.4 F 57 18 124/57 95 11/04/18 23:24 98.3 F 71 16 125/63 96 General:Patient sitting upright in chair, comfortable, NAD Neruo: GCS 1, A&0 x 3, CN II - XII grossly intact. motor strength 5/5 in all extremities Dem: scalp wound C/D/I, abdomen wound C/D/I Abdomen: firm distended, non tender,active BS in all quadrants Derm:Scalp wounds intact C/D/I, Abdominal wound C/D/I Assessment: 73 y/o male post SUEDE BRUSHER shunt POD # 3, patient is recovering well. Later this morning patient did have large bowel movement. Patient stable will possible be ready for discharge tomorrow. Plan: 1) Advance diet as tolerated 2)As per medicine D/C Rehman continue to monitor urine output. 30) discharge planning
--- NOTE | 2018-11-05 11:55 | PN ---
Subjective Date of Service: 11/05/18 Interval History: No acute events overnight, afebrile. Slept very well. Tolerated jello last night. Had a very large (per RN report) BM this AM. grubbs pool. diet advanced. Denies pain, SOB, f/c/n/v. Objective Active Medications: Hydrocodone Bitart/Acetaminophen ([place] 5-325 Tab*) 2 tab PO Q4H PRN PRN Reason: marked pain Last Admin: 11/03/18 05:54 Dose: 2 tab Amlodipine Besylate (Norvasc Tab*) 5 mg PO 0900 [facility] Last Admin: 11/05/18 08:24 Dose: 5 mg Aspirin (Aspirin Ec Tab*) 81 mg PO DAILY [facility] Last Admin: 11/05/18 08:25 Dose: 81 mg Cholecalciferol (Vitamin D Tab*) 5,000 units PO DAILY [facility] Last Admin: 11/05/18 08:24 Dose: 5,000 units Citalopram Hydrobromide (Celexa Tab*) 20 mg PO DAILY [facility] Last Admin: 11/05/18 08:25 Dose: 20 mg Cyanocobalamin (Vitamin B12 Tab*) 1,000 mcg PO DAILY [facility] Last Admin: 11/05/18 08:25 Dose: 1,000 mcg Docusate Sodium (Colace Cap*) 100 mg PO BID PRN PRN Reason: CONSTIPATION Last Admin: 11/05/18 08:24 Dose: 100 mg Finasteride (Proscar Tab*) 5 mg PO DAILY [facility] Last Admin: 11/05/18 08:26 Dose: 5 mg Heparin Sodium (Porcine) (Heparin Vial(*)) 5,000 units SUBCUT Q12HR [facility] Last Admin: 11/05/18 08:26 Dose: 5,000 units Hydralazine HCl (Apresoline Iv*) 5 mg IV SLOW PU Q6H PRN PRN Reason: SYSTOLIC BP GREATER THAN: Last Admin: 11/04/18 00:31 Dose: 5 mg Lisinopril (Prinivil Tab*) 10 mg PO BEDTIME [facility] Last Admin: 11/04/18 20:42 Dose: 10 mg Metoprolol Succinate (Toprol Xl Tab*) 25 mg PO BID [facility] Last Admin: 11/05/18 08:25 Dose: 25 mg Morphine Sulfate (Morphine Inj (Syringe))*) 2 mg IV Q2H PRN PRN Reason: PAIN Multivitamins/Minerals (Theragran/Minerals Tab*) 1 tab PO DAILY [facility] Last Admin: 11/05/18 08:25 Dose: 1 tab Polyethylene Glycol/Electrolytes (Miralax*) 17 gm PO DAILY PRN PRN Reason: CONSTIPATION Last Admin: 11/05/18 08:24 Dose: 17 gm Senna (Senokot Tab*) 1 tab PO DAILY PRN PRN Reason: CONSTIPATION Last Admin: 11/05/18 08:25 Dose: 1 tab Spironolactone (Aldactone Tab*) 25 mg PO DAILY [facility] Last Admin: 11/05/18 08:24 Dose: 25 mg Tamsulosin HCl (Flomax Cap*) 0.4 mg PO DAILY [facility] Last Admin: 11/05/18 08:25 Dose: 0.4 mg Vital Signs - 8 hr 11/05/18 11/05/18 11/05/18 04:01 08:00 08:08 Temperature 98.4 F 98.4 F Pulse Rate 57 54 Respiratory 18 17 17 Rate Blood Pressure 124/57 117/55 (mmHg) O2 Sat by Pulse 95 95 95 Oximetry 11/05/18 11:21 Temperature 97.9 F Pulse Rate 59 Respiratory 17 Rate Blood Pressure 102/41 (mmHg) O2 Sat by Pulse 97 Oximetry Oxygen Devices in Use Now: None Appearance: NAD, sitting in chair. Eyes: No Scleral Icterus Ears/Nose/Mouth/Throat: NL Teeth, Lips, Gums Neck: Trachea Midline Respiratory: Symmetrical Chest Expansion and Respiratory Effort, Clear to Auscultation Cardiovascular: NL Sounds; No Murmurs; No JVD, RRR Abdominal: - - slightly distended, slight tenderness near incision in LLQ. soft Extremities: No Edema Skin: No Rash or Ulcers Neurological: NL Sensation, - - oriented to name, place situation but not year. Nutrition: Taking PO's Result Diagrams: 11/04/18 06:12 11/04/18 06:12 Microbiology and Other Data: Microbiology 11/02/18 16:15 Nasal Nasal Screen MRSA (PCR) - Final Mrsa Not Detected Assess/Plan/Problems-Billing Assessment: 73 yo male PMH b/p, CAD s/p CABG, Aortic Insufficiency s/p valve replacement, BPH, NPH now s/p right CONTRACTS ADVISOR shunt placed 11/02. Course complicated by Ileus, now with BM. - Patient Problems (1) NPH (normal pressure hydrocephalus) Current Visit: No Status: Acute Code(s): G91.2 - (IDIOPATHIC) NORMAL PRESSURE HYDROCEPHALUS SNOMED Code(s): 37933123 Comment: POD #3 from shunt Management per Neurosurgery PT, eventually back to [facility] with goal to home eventually if gait stability improves. advanced diet to regular. (2) Ileus Current Visit: Yes Status: Acute Code(s): K56.7 - ILEUS, UNSPECIFIED SNOMED Code(s): 492718255 Comment: continue miralax continue colace bid prn continue senna prn large BM this AM (3) HTN (hypertension) Current Visit: No Status: Acute Code(s): I10 - ESSENTIAL (PRIMARY) HYPERTENSION SNOMED Code(s): 04868008 Comment: Continue home doses of metoprolol succinate 25mg BID and spironolactone 25mg. Has been added lisinopril 10mg and amlodipine 5mg overnight for SBP 148. Currently 110s. Monitor (4) BPH (benign prostatic hyperplasia) Current Visit: Yes Status: Acute Code(s): N40.0 - BENIGN PROSTATIC HYPERPLASIA WITHOUT LOWER URINRY TRACT SYMP SNOMED Code(s): 449865595 Comment: Continue finasteride and tamsulosin. now that had large BM and abdomen less distended, will trial grubbs removal. (5) Depression Current Visit: Yes Status: Acute Code(s): F32.9 - MAJOR DEPRESSIVE DISORDER , SINGLE EPISODE, UNSPECIFIED SNOMED Code(s): 27058695 Comment: continue home citalopram Status and Disposition: inpatient back to [facility] likely 11/06 (needs to urinate and tolerate advanced diet)
[2018-11-05 17:19] LABS: Urine Appearance Cloudy; Urine Bacteria Absent (Absent); Urine Bilirubin Negative (Negative); Urine Blood 2+ (Negative); Urine Color Yellow; Urine Glucose Negative (Negative); Urine Ketones Negative (Negative); Urine Nitrite Negative (Negative); Urine Protein Negative (Negative); Urine Red Blood Cell 3+(>10/hpf) (Absent); Urine Specific Gravity 1.005 (1.010-1.030); Urine Urobilinogen Negative (Negative); Urine White Blood Cell Trace(0-5/hpf) (Absent)
[2018-11-05] MEDS: Lisinopril TAB* 10 MG PO SCH (21:10)
[2018-11-06] MEDS: hydrALAZINE IV* 20 MG/ML VIAL IV SLOW PU PRN (03:38)
--- NOTE | 2018-11-06 09:27 | PN ---
Progress Note - Progress Note Date of Service: 11/06/18 SOAP: Subjective: 73 y/o male post COMMUNICATIONS ADMINISTRATOR shunt placement POD #4, has been doing well, his diet was advanced yesterday and has been able to tolerate it with out issue. He currently denies any pain, nausea or vomiting. Patient has continued to walk with PT and feels more steady on his feet. Patient can possible be discharged to [facility] today. Objective: Vital Signs - 12 hr Temp Pulse Resp BP Pulse Ox 11/06/18 07:48 97.9 F 54 16 132/55 96 11/06/18 03:52 131/60 11/06/18 03:47 136/63 11/06/18 03:46 142/60 11/06/18 03:35 150/64 11/06/18 03:30 98.1 F 56 16 151/68 99 11/05/18 23:43 97.5 F 58 16 131/63 99 General:Patient sitting upright in chair, comfortable, NAD Neruo: GCS 1, A&0 x 3, CN II - XII grossly intact. motor strength 5/5 in all extremities Dem: scalp wound C/D/I, abdomen wound C/D/I Assessment: 73 y/o s/p COMMUNICATIONS ADMINISTRATOR shunt placement, recovering well, ready for discharge. Plan: Discharge planning to [facility].
[2018-11-06] MEDS: Heparin VIAL(*) 5000 UNITS/ML VIAL (FIVE THOUSAND) SUBCUT SCH (11:00)
[2018-11-06] MEDS: Cyanocobalamin TAB* 500 MCG PO SCH (11:02)
[2018-11-06] MEDS: Finasteride TAB* 5 MG PO SCH (11:02)
[2018-11-06] MEDS: Spironolactone TAB* 25 MG PO SCH (11:03)
[2018-11-06] MEDS: Tamsulosin CAP* 0.4 MG PO SCH (11:03)
[2018-11-06] MEDS: Citalopram TAB* 20 MG PO SCH (11:03)
[2018-11-06] MEDS: Cholecalciferol TAB* 1000 UNITS PO SCH (11:04)
[2018-11-06] MEDS: amLODIPine TAB* 5 MG PO SCH (11:04)
[2018-11-06] MEDS: Multivitamins/Minerals TAB PO SCH (11:04)
[2018-11-06] MEDS: Metoprolol Succinate XL TAB* 25 MG PO SCH (11:04)
[2018-11-06] MEDS: Aspirin EC TAB* 81 MG TAB.EC PO SCH (11:04)
[2018-11-06 11:10] LABS: ABS Eosinophils 0.4 10^3/ul (0-0.6); ABS Lymphocytes 0.9 10^3/ul (1.0-4.8); ABS Monocytes 0.4 10^3/ul (0-0.8); ABS Neutrophils 5.3 10^3/ul (1.5-7.7); Eosinophil % 5.3 %; Hematocrit 37 % (42-52); Hemoglobin 12.6 g/dL (14.0-18.0); Lymphocyte % 12.4 %; Mean Corpuscular HGB Conc 35 g/dL (31-36); Mean Corpuscular Hemoglobin 30 pg (27-31); Mean Corpuscular Volume 87 fL (80-94); Mean Platelet Volume 6.9 fL (7.4-10.4); Nucleated Red Blood Cells % 0.1; Platelet Count 237 10^3/uL (150-450); Red Blood Count 4.23 10^6 /uL (4.18-5.48); Red Cell Distribution Width 14 % (10-15)
[2018-11-06 11:27] VITALS: BP 116/51
[2018-11-06 11:31] LABS: BUN/Creatinine Ratio 14.9 (8-20); Calcium 9.1 mg/dL (8.6-10.3); EGFR African American 125.1 (>60); EGFR Non-African American 103.4 (>60); Potassium 3.9 mmol/L (3.5-5.0)
--- NOTE | 2018-11-06 12:09 | DS ---
DISCHARGE SUMMARY: DATE OF ADMISSION: 11/02/18 DATE OF DISCHARGE: 11/06/18 ADMITTING PROVIDER: Rosa Isela Darden MD per order. H and P apparently done as an outpatient, 10/04/[address] Miller. CHIEF COMPLAINT: Gait instability and dementia secondary to normal pressure hydrocephalus, now status post elective TIRE SORTER shunt. PRINCIPAL DIAGNOSIS: Normal pressure hydrocephalus, now status post TIRE SORTER shunt. HISTORY OF PRESENT ILLNESS AND HOSPITAL COURSE: Mr. Farhat Saavedra is a 73- year-old male with past medical history of NPH, BPH, hypertension, peripheral vascular disease, gait instability, frequent falls, hyperlipidemia, CAD status post CABG [place] to circumflex, aortic insufficiency status post a porcine aortic valve, rotator cuff tear. Please see outpatient H and P for full details. He was brought in for elective TIRE SORTER shunt on 11/02/18 and procedure was without complication other than some post-operative ileus, which has since resolved. Blood pressure medications were added to help maintain systolics between 100 and 140. He had two large bowel movements day prior to admission. Also, course was a bit complicated by urinary retention with his history of BPH. Two Rehman removal trials were unsuccessful and he will need to follow up with Urology within next 2 weeks. MEDICATIONS: New medication includes lisinopril 10 mg daily to control his blood pressure. Discharge medications include: 1. Tamsulosin 0.4 mg p.o. daily. 2. Spironolactone 25 mg daily. 3. MiraLAX 17 g daily p.r.n. 4. Multivitamin 1 tablet daily. 5. Metoprolol succinate 25 mg p.o. b.i.d. 6. Lisinopril 10 mg daily (new). 7. [place] 1 tab q.4 hours p.r.n. for 30 tabs (new). 8. Proscar 5 mg daily. 9. Vitamin B12 of 1000 mcg p.o. daily. 10. Celexa 20 mg p.o. daily. 11. Cholecalciferol 5000 units p.o. daily. 12. Aspirin 81 mg daily. FOLLOWUP: Please follow up with Justin Celestin DO, within 2 weeks of discharge. He is also likely following with Dr. Beard at [facility] [place]. He needs Urology outpatient evaluation preferably within the next 2 weeks given his continued urinary retention and inability to pass Rehman removal. DISCHARGE DIET: Heart healthy, unchanged. DISPOSITION: [place]. CONDITION: Improved. Continued physical therapy, but ultimately he wants to return home. TIME SPENT: Time spent on discharge,35 minutes. [id number]/CPS #: [id number] SATHISH
== END 2018-11-06 13:50 | DRG 32 ==
LOC: INTOOBSV 05:47 → AA 05:47 → ICU 13:11 → AA 15:00 → ICU 11-03 09:42 → OBSVTOIN 11-03 15:00 → SSU 11-03 15:50
PROVIDERS: ADMIT Neurological Surgery; ATTEND Internal Medicine
PROC: 00160J6 Bypass Cerebral Ventricle to Peritoneal Cavity with Synthetic Substitute, Open Approach (ICD-10-PCS; principal; 2018-11-02 07:30)
DX: G91.2 (Idiopathic) normal pressure hydrocephalus (principal); K91.89 Other postprocedural complications and disorders of digestive system; K56.7 Ileus, unspecified; M41.9 Scoliosis, unspecified; I10 Essential (primary) hypertension; I73.9 Peripheral vascular disease, unspecified; R29.6 Repeated falls; D72.828 Other elevated white blood cell count; E78.5 Hyperlipidemia, unspecified; I25.10 Atherosclerotic heart disease of native coronary artery without angina pectoris; N40.1 Benign prostatic hyperplasia with lower urinary tract symptoms; M51.36 Other intervertebral disc degeneration, lumbar region; M48.061 Spinal stenosis, lumbar region without neurogenic claudication; D64.9 Anemia, unspecified; M43.16 Spondylolisthesis, lumbar region; R33.8 Other retention of urine; F32.9 Major depressive disorder, single episode, unspecified; Z95.1 Presence of aortocoronary bypass graft; Z95.3 Presence of xenogenic heart valve; Z86.73 Personal history of transient ischemic attack (TIA), and cerebral infarction without residual deficits; Z88.0 Allergy status to penicillin; Z88.8 Allergy status to other drugs, medicaments and biological substances; Z79.1 Long term (current) use of non-steroidal anti-inflammatories (NSAID); Z79.82 Long term (current) use of aspirin; Z79.899 Other long term (current) drug therapy
CPT/HCPCS: 36415; 70450; 74176; 80048; 81003; 81015; 83735; 85025; 85027; 85610; 85730; 87086; 87641; A9270-GY; G0378; G8978-GP-CK; G8979-GP-CI; J0360; J1100; J1644; J2001; J2250; J2405; J2704; J3010; J3370; J3475

== ENCOUNTER 2018-11-22 01:17 | Inpatient (IN) | payer MEDICARE ==
--- NOTE | 2018-11-22 01:35 | ED ---
Headache - HPI Summary HPI Summary: This patient is a 73 year old male brought in by EMS presenting to [facility] with a chief complaint of headache since 3 hours ago. The patient had a shunt placed for hydrocephalus 3 weeks ago. The patient reports nausea, vomiting, and a minor cough. The patient has a Hx of multiple strokes and a surgical Hx of brain surgery 3 weeks ago. The patient denies neck pain. He has an elevated temp of 102.1 in room. - History Of Current Complaint Chief Complaint: EDHeadache Stated Complaint: HEADACHE PER EMS Time Seen by Provider: 11/22/18 01:24 Hx Obtained From: Patient Onset/Duration: Started hours ago Timing: Hours - Allergies/Home Medications Allergies/Adverse Reactions: Allergies Allergy/AdvReac Type Severity Reaction Status Date / Time No Known Allergies Allergy Verified 11/02/18 06:25 PMH/Surg Hx/FS Hx/Imm Hx Endocrine/Hematology History: Denies: Hx Diabetes Cardiovascular History: Reports: Hx Coronary Artery Disease, Hx Hypercholesterolemia, Hx Hypertension - MEDICATED, Hx Valvular Heart Disease - aortic insufficency, Other Cardiovascular Problems/Disorders - aortic valve replacement Denies: Hx Congestive Heart Failure, Hx Myocardial Infarction, Hx Pacemaker/ ICD Respiratory History: Denies: Hx Asthma, Hx Chronic Obstructive Pulmonary Disease (COPD), Other Respiratory Problems/Disorders GI History: Reports: Hx Gall Bladder Disease - gallbladder removed History: Denies: Hx Renal Disease Musculoskeletal History: Reports: Hx Arthritis, Hx Tendonitis - left shoulder, Other Musculoskeletal History - L rotator cuff tear, arthritis Sensory History: Reports: Hx Cataracts - marielos, Hx Contacts or Glasses - for reading only Denies: Hx Hearing Aid Opthamlomology History: Reports: Hx Cataracts - marielos, Hx Contacts or Glasses - for reading only Neurological History: Reports: Hx Transient Ischemic Attacks (TIA) - according to pt knowledge, Other Neuro Impairments/Disorders - HX HYDROCEPHALUS Psychiatric History: Reports: Hx Depression - on meds Denies: Hx Panic Disorder - Surgical History Surgery Procedure, Year, and Place: 09/30 CABG & aortic valve replaced - [facility]. Cholecystectomy - [facility] [place] Hx Anesthesia Reactions: No Infectious Disease History: Denies: Hx Shingles, Hx Tuberculosis, History Other Infectious Disease - Family History Known Family History: Positive: Cardiac Disease - Social History Alcohol Use: None Substance Use Type: Reports: None Smoking Status (MU): Unknown if Ever Smoked Review of Systems Positive: Fever Positive: Cough Positive: Vomiting, Nausea Positive: Other - Neg: Neck pain Positive: Headache All Other Systems Reviewed And Are Negative: Yes Physical Exam - Summary Physical Exam Summary: VITAL SIGNS: Reviewed. GENERAL: Patient is a well-developed and nourished MALE who is lying comfortable in the stretcher. Patient is not in any acute respiratory distress. HEAD AND FACE: No signs of trauma. No ecchymosis, hematomas or skull depressions. No sinus tenderness. EYES: PERRLA, EOMI x 2, No injected conjunctiva, no nystagmus. EARS: Hearing grossly intact. Ear canals and tympanic membranes are within normal limits. MOUTH: Oropharynx within normal limits. NECK: Supple, trachea is midline, no adenopathy, no JVD, no carotid bruit, no c- spine tenderness, neck with full ROM CHEST: Symmetric, no tenderness at palpation LUNGS: Clear to auscultation bilaterally. No wheezing or crackles. CVS: tachycardic, S1 and S2 present, no murmurs or gallops appreciated. ABDOMEN: Soft, non-tender. No signs of distention. No rebound no guarding, and no masses palpated. Bowel sounds are normal. EXTREMITIES: no edema, no cyanosis or clubbing. Chronic mild left-sided weakness. NEURO: Alert and oriented x 3. No acute neurological deficits. Speech is normal and follows commands. SKIN: Dry and warm Triage Information Reviewed: Yes Vital Signs On Initial Exam: Temp Pulse Resp BP Pulse Ox 102.1 F 103 24 101/67 94 11/22/18 01:22 11/22/18 01:22 11/22/18 01:22 11/22/18 01:22 11/22/18 01:22 Vital Signs Reviewed: Yes Diagnostics - Laboratory Result Diagrams: 11/22/18 02:05 11/22/18 02:05 Lab Statement: Any lab studies that have been ordered have been reviewed, and results considered in the medical decision making process. - Radiology CXR Radiology Interpretation Completed By: ED Physician Summary of Radiographic Findings: No acute process. Pending official radiologist report. - CT Brain CT Interpretation Completed By: Radiologist Summary of CT Findings: 1. Right frontal approach AC[employer]IC SU[employer] CENTER DIRECTOR shunt terminating in the frontal horn of the left lateral ventricle. Minimal interval decreased ventricular size. 2. Mild to moderate parechymal volume loss with microvascular white mattter disease. 3. Encephalomalacia in the right frontal lobe along the [employer] shunt tract. 4. 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 ED Provider has reviewed this report. Headache Course/Dx - Course Course Of Treatment: This patient is a 73 year old male presenting to [facility] with a chief complaint of headache since 3 hours ago. Labs were remarkable for UTI and sepsis. Dr. Baxter, Hospitalist, accepted the patient for admission. This plan was discussed with the patient and he was agreeable with this plan. - Diagnoses Provider Diagnoses: UTI (urinary tract infection), Sepsis Discharge - Sign-Out/Discharge Documenting (check all that apply): Patient Departure - Admission - Discharge Plan Condition: Stable Disposition: ADMITTED TO [facility] - Billing Disposition and Condition Condition: STABLE Disposition: Admitted to [facility] - Attestation Statements Document Initiated by Arelis: Yes Documenting Scribe: Sandip Hernandez Provider For Whom Arelis is Documenting (Include Credential): Shun Naranjo MD Scribe Attestation: Sandip Montanez scribed for Shun Naranjo MD on 11/22/18 at 0649. Scribe Documentation Reviewed: Yes Provider Attestation: The documentation as recorded by the Sandip das accurately reflects the service I personally performed and the decisions made by Reza marcelo MD Status of Scribvladimir Document: Viewed
[2018-11-22] MEDS ORDERED: ED Ceftriaxone 2 GM/50 ML 2 GM/2 ML PREMIX.SET IVPB ONE (01:40)
[2018-11-22] MEDS ORDERED: NS 0.9% 1000 ML** 2,100 ML IV ONE (01:40)
[2018-11-22] MEDS ORDERED: Acetaminophen TAB* 325 MG PO ONE (01:41)
[2018-11-22] MEDS ORDERED: Vancomycin(*) 1,000 MG in NS 0.9% 250 ML* 250 ML IVPB ONE (01:41)
[2018-11-22] MEDS ORDERED: Morphine 4 MG/ML VIAL (1 ml) 4 MG/ML VIAL IV ONE (01:42)
[2018-11-22] MEDS ORDERED: Ondansetron INJ* 2 MG/ML VIAL IV ONE (01:42)
[2018-11-22] MEDS ORDERED: Ketorolac INJ* 30 MG/ML 1 ML VIAL IV PUSH ONE (01:42)
--- OUTSIDE RECORDS SUMMARY | 2018-11-22 02:00 | XMS REPORT | Continuity of Care Document ---
:1945 External Reference #:[id number] Author Name Aixa Sanderson Care Team Providers Name Role Phone Justin Celestin D.O. Primary Care Physician Unavailable Payers Date Identification Numbers Payment Provider Subscriber Effective: 2013 Policy Number: [id number] Medicare Blue Ppo Farhat Saavedra Group Number: [id number] [address] [address] PayID: [id number] [place] [address] Problems Active Problems Provider Date Aortic valve disorder Laina Rodriguez D.O. Onset: 04/07/2011 Coronary arteriosclerosis Laina Rodriguez D.O. Onset: 10/11/2011 Aortic valve disorder Laina Rodriguez D.O. Onset: 04/12/2012 Benign essential hypertension [place] [facility] Schedule Onset: 04/05/2013 Normal pressure hydrocephalus Ernesto Phelps M.D. Onset: 09/21/2018 Abnormal gait Ernesto Phelps M.D. Onset: 08/01/2018 Amnesia Ernesto Phelps M.D. Onset: 08/01/2018 Obstructive hydrocephalus Ernesto Phelps M.D. 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 Lisinopril 1 by mouth every Unknown 10mg Tablets day Polyethylene Glycol 1000 as needed Unknown Powder [...] 270tabs Enoch Bui, 01/03/2007 - 600mg Tablets M.DAkosua 05/11/2010 Lisinopril Take One Tablet Unknown - [...] Indications Ordering Provider Date Depomedrol 40MG Laina Gonzales, M.D. 06/19/2015 Injection Depomedrol 80MG Laina Gonzales M.D. 11/11/2014 Injection Depomedrol 80MG Laina Gonzales M.D. 04/04/2014 Injection Depomedrol 80MG Laina Gonzales M.D. 08/23/2013 Injection Depomedrol 80MG Laina Gonzales M.D. 11/13/2012 Injection Immunizations CPT Code Status Date Vaccine Lot # [id number] Given 04/11/2002 Td (History By Patient) Vital Signs Date Vital Result Comment 11/10/2018 11:24am Height 65 inches 5'5" Weight 169.00 lb BP Systolic Sitting 100 mmHg BP Diastolic Sitting 50 mmHg Pain Level 2 BMI (Body Mass Index) 28.1 kg/m2 10/04/2018 2:01pm Height 65 inches 5'5" Weight [...] Date Facility Test Result H/L Range Note Basic Metabolic 10/26/2018 [facility] Sodium 136 mmol/L N 135- [address] [place] [address] [phone] Potassium 4.7 mmol/L N 3.5-5.0 Chloride 102 mmol/L N 101-111 Co2 Carbon Dioxide 28 mmol/L N 22-32 Anion Gap 6 mmol/L N 2-11 Calcium 10.1 mg/dL N 8.6-10.3 Glucose 68 mg/dL Low 70-100 Blood Urea Nitrogen 18 mg/dL N 6-24 Creatinine 1.00 mg/dL N 0.67-1.17 BUN/Creatinine Ratio 18.0 N 8-20 Egfr Non- 73.0 >60 Egfr 88.4 >60 1 Type & Screen 10/26/2018 [facility] Patient Blood Type A Positive [address] [place] [address] [phone] Antibody Screen NEGATIVE Urinalysis Profile 10/26/2018 [facility] Urine Color Yellow [address] [place] [address] [phone] Urine Appearance Clear Urine Specific [place] 1.013 N 1.010-1.030 Urine pH 6.0 N 5-9 Urine Urobilinogen Negative Negative Urine Ketones Negative Negative Urine Protein Negative Negative Urine Leukocytes Negative Negative Urine Blood Negative Negative * * Abnormal Negative 2 Urine Nitrite Negative Negative Urine Bilirubin Negative Negative Urine Glucose Negative Negative CBC No Diff 10/26/2018 [facility] White Blood 9.3 10^3/uL N 3.5-10.[address] [place] [address] [place] [address] [phone] Red Blood Count 4.67 10^6/uL N 4.18-5.48 Hemoglobin 13.9 g/dL Low 14.0-18.0 Hematocrit 41 % Low 42-52 Mean Corpuscular Volume 88 fL N 80-94 Mean Corpuscular Hemoglobin 30 pg N 27-31 Mean Corpuscular HGB Conc 34 g/dL N 31-36 Red Cell Distribution Width 13 % N 10-15 Platelet Count 415 10^3/uL N 150-450 Mean Platelet Volume 6.5 fL Low 7.4-10.4 Laboratory test 10/26/2018 [facility] Partial Thrombo 35.6 N 26.0-38.[address] [place] [address] [phone] Inr/Protime 10/26/2018 [facility] Inr 1.04 N 0.82-1.[address] [place] [address] [phone] Oligoclonal 08/28/2018 [facility] CSF Oligoclonal [address] [place] [address] [phone] Serum Oligoclonal Bands 2 bands Oligoclonal Proteins Interpret 1 bands <4 4 CSF Immunoglobulin 08/28/2018 [facility] CSF Immunoglobulin 0.54 <=0.85 G (Igg) [address] [place] [address] [phone] CSF Igg 4.7 mg/dL <=8.1 CSF Albumin 34.4 mg/dL Abnormal <=27.0 CSF IgG/Albumin Ratio 0.14 <=0.21 CSF Immunoglobulin G Synthesis 2.23 mg/24h <=12 Immunoglobulin G 1160 mg/dL 767 - 1590 Albumin 4510 mg/dL 5 Serum IgG/Albumin Ratio 0.26 <=0.40 6 Lyme [employer]IVE [employer] REPA[employer]ER HELPER Igg 08/28/2018 [facility] Lyme [employer]IVE SIGNAL REPAIRER HELPER Negative Negative Serum/CSF [address] Infection IgG, [place] [address] CSF [phone] Lyme [employer]IVE [employer] REPAIRER HELPER Infection IgG, Interp See Comment 7 Lyme [employer]IVE [employer]NAL REPAIRER HELPER Infection IgG, Serum See Comment 8 Protime 04/23/2010 [facility] Inr 0.95 0.82-1.[address] [place] [address] [phone] Protime 11.2 SEC 10.2-14.8 10 Basic Metabolic Panel 04/23/2010 [facility] Sodium 135 mmol/L 135-[address] [place] [address] [phone] Potassium 4.6 mmol/L 3.5-5.0 Chloride 100 mmol/L Low 101-111 Co2 (Carbon Dioxide) 28.0 mmol/L 22-32 Anion Gap 7.0 mmol/L 2-11 11 Glucose 108 mg/dL High 70-100 12 BUN 21 mg/dL 6-24 Creatinine 0.96 mg/dL 0.50-1.40 One Over Creatinine 1.00 BUN/Creatinine Ratio 21.9 High 8-20 Calcium 9.3 mg/dL 8.1-9.9 eGFR Non- 83.5 > 60 eGFR 101.1 > 60 13 CBC With Manual 04/23/2010 [facility] White Blood 10.1 CUMM 4.8-10.[address] [place] [address] [phone] Red Cell Count 4.73 CUMM 4.6-6.2 Hemoglobin [...] Absolute Neutrophil Count 8.5 RBC Morphology NORMAL Cath Panel 04/23/2010 [facility] PTT (Aptt) 30.2 25.15-38.[address] [place] [address] [phone] 1 Because ethnic data is not always readily [...] 15-29 5 Kidney failure <15 (or dialysis) 2 *Ascorbic acid is present which may interfere with detection of blood. 3 Standard intensity warfarin therapeutic range: 2.0-3.0 High intensity warfarin therapeutic range: 2.5-3.5 4 The oligoclonal band assay detected 3 or fewer unique IgG bands in the CSF. This is a negative result. Test Performed by: [facility] [employer] [place] [address] 5 REFERENCE VALUE [phone] Test Performed by: [facility] [employer] [address] [place] [address] 7 No antibodies to Lyme Borrelia species detected in cerebrospinal fluid. A negative result in a patient with appropriate exposure history and symptoms consistent with neuroinvasive Lyme disease should not be used to exclude infection. Testing for antibodies to Lyme Borrelia species in serum should be performed. ADDITIONAL INFORMATION This test was developed and its performance characteristics determined by [facility] in a manner consistent with CLIA requirements. This test has not been cleared or approved by the U.S. Food and Drug Administration. 8 CSF screen was negative for IgG-class antibodies to Lyme Borrelia species. Testing for IgG-class antibodies to Borrelia in serum is not indicated and was not performed. Test Performed by: [facility] [place] [address] [address] 9 Recommended INR for Patients on Oral Anticoagulants Prophylaxis 2.0 - 3.0 Treatment of thrombosis 2.0 - 3.0 Prevention of embolism 2.0 - 3.0 Prevention of embolism from prosthetic heart valves 2.5 - 3.5 10 DIAGNOSIS,TREATMENT,AND THERAPY MUST BE BASED ON THE INR VALUE ALONE. 11 Anion gap measurement may be of limited value in the presence of any alkalosis, especially in a combined acid base disorder. . 12 Note change in reference range as of 01/11/08. The change was based on recommendations from the [place] [employer]. 13 Because ethnic data is not always readily [...] dialysis) Procedures Date Code Description Status 02/01/2018 96242 EKG Tracing & Interpretation Completed 12/21/2017 87674 ECHO Transthoracic, Real-Time 2D With Doppler And Color Completed Flow 12/21/2017 06204 ECHO Transthoracic, Real-Time 2D With Doppler And Color Completed Flow 03/04/2017 81005 EKG Tracing & Interpretation Completed 01/28/2016 53351 Stress Test Completed 01/20/2016 80925 ECHO Transthoracic, Real-Time 2D With Doppler And Color Completed Flow 06/19/2015 20903 Inject/Drain Joint/Bursa Major W/O US Completed 06/13/2015 08673 EKG Tracing & Interpretation Completed 11/11/2014 34145 Inject/Drain Joint/Bursa Major W/O US Completed 04/04/2014 69589 Inject/Drain Joint/Bursa Major W/O US Completed 12/13/2013 53822 EKG Tracing & Interpretation Completed 10/29/2013 43459 Treadmill Interp/Report Only Completed 10/29/2013 46499 Stress Test Supervsn W/Out I/R Completed 10/25/2013 48586 Treadmill Interp/Report Only Completed 10/25/2013 44500 Stress Test Supervsn W/Out I/R Completed 10/25/2013 35204 EKG, Interpretation Only Completed 10/24/2013 82709 ECHO Transthorasic Realtime 2D W Doppler & Color Flow Hosp Completed 08/23/201315867 Inject/Drain Joint/Bursa Major W/O US Completed 04/05/2013 06684 ECHO Transthoracic, Real-Time 2D With Doppler And Color Completed Flow 11/13/2012 Inject/Drain Joint/Bursa Major W/O US Completed 04/12/2012 75177 EKG Tracing & Interpretation Completed 11/30/2010 14084 EKG Tracing & Interpretation Completed 11/18/2010 84906 ECHO Transthoracic, Real-Time 2D With Doppler And Color Completed Flow 04/28/2010 65856 Com RT And LT Catheterization Completed 04/28/2010 35031 Inj Proc LFT Vent/LFT Atrl Angio Completed 04/28/2010 03048 Aortic Root Inj Proc Completed 04/28/2010 13179 Coronary Angiography Completed 04/28/2010 64381 Coronary Angiography Completed 04/28/2010 07407 S/I/R Inj Proc Vent And Or Atrial Completed 04/28/2010 62032 Selective Coronary Angioplasty Completed 04/20/2010 47299 EKG Tracing & Interpretation Completed 02/07/2007 53544 Color Doppler Completed 02/07/2007 65282 Color Doppler Completed 02/07/2007 29232 Color Doppler Completed 02/07/2007 57976 Pulse Doppler & Continuous Wave Completed 02/07/2007 07529 Pulse Doppler & Continuous Wave Completed 02/07/2007 16052 Echocardiogram Completed 02/07/2007 69323 Echocardiogram Completed 02/07/2007 27316 Echocardiogram Completed Encounters Type Date Location Provider Dx Diagnosis Office Visit 11/10/2018 [facility] Z97.8 Presence of other 11:00a Services Of Roseanna Miller MD specified devices Office Visit 10/04/2018 [facility] G91.2 (Idiopathic) normal 2:30p Services Of Roseanna Miller MD pressure hydrocephalus G91.9 Hydrocephalus, unspecified M41.9 Scoliosis, unspecified Office 09/21/2018 [facility] G91.2 (Idiopathic) normal Visit 10:45a Services Of Roseanna Phelps M.D. pressure hydrocephalus Office 09/14/2018 [facility] Emilee Juan, M62.82 Rhabdomyolysis Visit 11:48a nader Bynum MD Hospitalists L03.115 Cellulitis of right lower limb G91.2 (Idiopathic) normal pressure hydrocephalus R45.851 Suicidal ideations R26.89 Other abnormalities of gait and mobility Office Visit 09/13/2018 11:47a [facility] Emilee L03.115 Cellulitis of Assjulián,nader Juan MD right lower limb Hospitalists M62.82 Rhabdomyolysis I10 Essential (primary) hypertension R45.851 Suicidal ideations Office Visit 09/12/2018 11:47a [facility] Emilee L03.115 Cellulitis of Assoc,nader Juan MD right lower limb Hospitalists M62.82 Rhabdomyolysis I10 Essential (primary) hypertension G91.2 (Idiopathic) normal pressure hydrocephalus R45.851 Suicidal ideations Office Visit 09/11/2018 [facility] Ty G91.2 (Idiopathic) normal 11:47a nader Bynum M.D. pressure Hospitalists hydrocephalus L03.115 Cellulitis of right lower limb M62.82 Rhabdomyolysis I10 Essential (primary) hypertension Office Visit 09/08/2018 [facility] G91.9 Hydrocephalus, 9:30a Services Of Roseanna Miller MD unspecified M47.896 Other spondylosis, lumbar region M43.16 Spondylolisthesis, lumbar region Office Visit 08/28/2018 [facility] Ernesto G91.9 Hydrocephalus, 11:45a Giuseppe Phelps M.D. unspecified Services Of Zipper Joiner R41.3 Other amnesia R26.89 Other abnormalities of gait and mobility Office Visit 08/01/2018 [facility] Ernesto G91.9 Hydrocephalus, 11:15a Giuseppe Phelps M.D. unspecified Services Of [employer]ipper Joiner R41.3 Other amnesia R26.89 Other abnormalities of gait and mobility Office Visit 04/17/2018 [facility] G91.9 Hydrocephalus, 1:30p Services Of Roseanna Miller MD unspecified M47.896 Other spondylosis, lumbar region M43.16 Spondylolisthesis, lumbar region R29.2 Abnormal reflex F03.90 Unspecified dementia without behavioral disturbance Office Visit 02/01/2018 8:00a [facility] Zachary Coates Z95.2 Presence of Of Roseanna Nevarez M.D. prosthetic heart valve I25.10 Athscl heart disease of [place] coronary artery w/o ang pctrs Office Visit 03/04/2017 8:30a [facility] Zachary Coates I25.10 Athscl heart Of Roseanna Nevarez M.D. disease of [place] coronary artery w/o ang pctrs Z95.2 Presence of prosthetic heart valve I35.1 Nonrheumatic aortic (valve) insufficiency Office Visit 01/30/2016 8:00a [facility] Zachary Coates I25.10 Athscl heart Of Roseanna Nvearez M.D. disease of [place] coronary artery w/o ang pctrs Z95.2 Presence of prosthetic heart valve I35.0 Nonrheumatic aortic (valve) stenosis Office Visit 06/13/2015 8:15a [facility] Zachary Coates I25.10 Athscl heart Of Roseanna Nevarez M.D. disease of [place] coronary artery w/o ang pctrs Z95.2 Presence of prosthetic heart valve R94.31 Abnormal electrocardiogram [ECG] [EKG] Office Visit 05/31/2014 10:30a [facility] Zachary Coates 424.1 Aortic Valve Of Roseanna Nevarez M.D. Disorder 414.01 Coronary Atherosclerosis [place] Office Visit 12/13/2013 11:15a [facility] Zachary oCates 424.1 Aortic Valve Of Roseanna Nevarez M.D. Disorder 414.01 Coronary Atherosclerosis [place] 780.2 Syncope & Collapse Office Visit 10/25/2013 3:46p [facility] Claudia Rodriguez, 780.2 Syncope & Assoc,pc M.DAkosua Collapse Hospitalists 401.9 Hypertension Unspec 414.00 Coronary Atherosclerosis Unspec Type Vessel [place]/Graft Office Visit 10/25/2013 [place] Jo Wadsworth, 780.09 Consciousness 10:21a Cardiology Diana Pablo Alteration Other [facility] 424.1 Aortic Valve Disorder Office Visit 10/24/2013 3:45p [facility] Cem Browning, 780.2 Syncope & Assoc,pc N.P. Collapse Hospitalists 401.9 Hypertension Unspec 414.00 Coronary Atherosclerosis Unspec Type Vessel [place]raft Office Visit 06/07/2013 11:00a [facility] Laina 424.1 Aortic Valve Beverly Rodriguez Disorder 401.1 Hypertension Benign 414.01 Coronary Atherosclerosis [place] 272.4 Hyperlipidemia Other Unspec Office Visit 04/12/2012 11:00a [facility] Laina 424.1 Aortic Valve Rodriguez, D.O. Disorder 414.01 Coronary Atherosclerosis [place] 401.1 Hypertension Benign 272.4 Hyperlipidemia Other Unspec Office Visit 10/11/2011 11:00a [facility] Laina 424.1 Aortic Valve Rodriguez, D.O. Disorder 414.01 Coronary Atherosclerosis [place] 401.1 Hypertension Benign 272.4 Hyperlipidemia Other Unspec Office Visit 04/07/2011 2:20p [facility] Laina 424.1 Aortic Valve Rodriguez, D.O. Disorder 414.01 Coronary Atherosclerosis [place] 272.4 Hyperlipidemia Other Unspec 401.1 Hypertension Benign Office Visit 11/30/2010 [facility] Laina 414.01 Coronary 2:00p Cardiology Rodriguez, D.O. Atherosclerosis [place] 424.1 Aortic Valve Disorder 401.1 Hypertension Benign 272.4 Hyperlipidemia Other Unspec Office Visit 05/11/2010 [facility] Laina 786.09 Dyspnea & 2:00p Cardiology Rodriguez, D.O. Respiratory Abnormalities Other 414.01 Coronary Atherosclerosis [place] 424.1 Aortic Valve Disorder 401.1 Hypertension Benign 272.4 Hyperlipidemia Other Unspec Office Visit 04/20/2010 1:40p [facility] Laina 424.1 Aortic Valve Rodriguez, D.O. Disorder 401.1 Hypertension Benign 272.4 Hyperlipidemia Other Unspec Office Visit 01/31/2007 2:30p [facility] Enoch Reynoso 796.2 Blood Pressure Assoc AT Samy Bui [facility] W/O Hypertension 785.2 Murmur Cardiac Undiagnosed Office Visit 01/03/2007 1:30p [facility] Enoch Bui, 724.2 [facility] M.Aminata 796.2 Blood Pressure Reading Elevated W/O Hypertension Plan of Treatment Future Appointment(s):02/05/2019 3:00 pm - Blanca Miller MD at [facility]12/04/2018 1:00 pm - Blanca Miller MD at [facility]12/11/2018 2:30 pm - Ernesto Phelps M.D. at [facility]11/10/2018 - Blanca Miller MDZ97.8 Presence of other specified devicesNew Xrays:CT Brain Wo, Ordered: 11/10/18
[2018-11-22 02:07] LABS: Urine Appearance Turbid; Urine Bacteria 1+ (Absent); Urine Bilirubin Negative (Negative); Urine Blood 2+ (Negative); Urine Color Yellow; Urine Glucose Negative (Negative); Urine Ketones Negative (Negative); Urine Nitrite Positive (Negative); Urine Protein 2+(100 mg/dL) (Negative); Urine Red Blood Cell 3+(>10/hpf) (Absent); Urine Specific Gravity 1.012 (1.010-1.030); Urine Urobilinogen Negative (Negative); Urine White Blood Cell 3+(>20/hpf) (Absent)
[2018-11-22 02:15] LABS: ABS Lymphocytes 0.5 10^3/ul (1.0-4.8); ABS Monocytes 1.2 10^3/ul (0-0.8); ABS Neutrophils 13.9 10^3/ul (1.5-7.7); Eosinophil % 0.2 %; Hematocrit 36 % (42-52); Hemoglobin 12.5 g/dL (14.0-18.0); Lymphocyte % 3.4 %; Mean Corpuscular HGB Conc 34 g/dL (31-36); Mean Corpuscular Hemoglobin 30 pg (27-31); Mean Corpuscular Volume 87 fL (80-94); Mean Platelet Volume 6.6 fL (7.4-10.4); Nucleated Red Blood Cells % 0.1; Platelet Count 315 10^3/uL (150-450); Red Blood Count 4.17 10^6 /uL (4.18-5.48); Red Cell Distribution Width 14 % (10-15); White Blood Count 15.7 10^3/uL (3.5-10.8)
[2018-11-22 02:23] LABS: Activated Partial Thrombo Time 33.5 seconds (26.0-38.0); INR 1.28 (0.82-1.09)
[2018-11-22 02:29] LABS: Albumin 3.7 g/dL (3.2-5.2); Albumin/Globulin Ratio 1.1 (1-3); BUN/Creatinine Ratio 19.6 (8-20); Calcium 9.5 mg/dL (8.6-10.3); EGFR African American 77.5 (>60); EGFR Non-African American 64.1 (>60); Globulin 3.5 g/dL (2-4); Potassium 4.2 mmol/L (3.5-5.0); Total Bilirubin 0.8 mg/dL (0.2-1.0); Total Protein 7.2 g/dL (6.4-8.9)
[2018-11-22] MEDS ORDERED: cefTRIAXone(*) 2 GM in NS 0.9% 100 ML* 100 ML IVPB ONE (02:30)
[2018-11-22 02:32] LABS: Troponin I 0.01 ng/mL (<0.04)
[2018-11-22] MEDS ORDERED: Polyethylene Glycol 3350* 17 GM PACKET PO PRN (03:57)
[2018-11-22] MEDS ORDERED: Acetaminophen TAB* 325 MG PO PRN (04:05)
--- NOTE | 2018-11-22 04:28 | HP ---
History of Present Illness - History of Present Illness Reason for Visit: Headache History of Present Illness: 73YoM with Dementia, coronary artery disease, status post CABG procedure, hypertension, hyperlipidemia, benign prostatic hypertrophy, Hx of 2 strokes normal pressure hydrocephalus s/p FOREST MANAGER shut few weeks ago, sent from [facility] due to Headache, nausea/vomiting and cough per ER records. Patient knows he's at [facility] but unable to give reason as to why he's here. He knows he had a shunt procedure but didn't give any further details. At present he denies any symptoms other than some neck pain. In ER was noted to have fever, abnormal UA and is being admitted for Sepsis from UTI. - Past Medical History Cardiac: CAD - S/P CABG. 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 - Past Surgical History Past Surgical History: Cholecystectomy, CABG, Cataract Removal - Past Family History Family History: None - Past Social History Smoke: No Alcohol: None Drugs: None Lives: [place] Review of Systems - Measurements Intake and Output: Intake and Output Last 24 Hours 11/19/18 11/20/18 11/21/18 11/22/18 06:59 06:59 06:59 06:59 Intake Total 250 Balance 250 Weight 155 lb Intake: IV Fluids 250 Objective Active Medications: Acetaminophen (Tylenol Tab*) 650 mg PO Q6H PRN PRN Reason: FEVER Hydrocodone Bitart/Acetaminophen ([place] 5-325 Tab*) 1 tab PO Q4H PRN PRN Reason: marked pain Aspirin (Aspirin Ec Tab*) 81 mg PO DAILY [facility] Cholecalciferol (Vitamin D3 Cap/Tab (Nf)) cap PO DAILY [facility] Citalopram Hydrobromide (Celexa Tab*) 20 mg PO DAILY [facility] Cyanocobalamin (Vitamin B12 Tab*) 1,000 mcg PO DAILY [facility] Finasteride (Proscar Tab*) 5 mg PO DAILY [facility] Heparin Sodium (Porcine) (Heparin Vial(*)) 5,000 units SUBCUT Q12HR [facility] Ceftriaxone Sodium 1 gm/ (Sodium Chloride) 50 mls @ 200 mls/hr IVPB Q24H [facility] Vancomycin HCl 500 mg/ Sodium (Chloride) 250 mls @ 166.667 mls/hr IVPB .CONTINUE PROTOCOL [facility]; Protocol Lisinopril (Prinivil Tab*) 10 mg PO DAILY [facility] Metoprolol Succinate (Toprol Xl Tab*) 25 mg PO BID [facility] Multivitamins/Minerals (Theragran/Minerals Tab*) 1 tab PO DAILY [facility] Polyethylene Glycol/Electrolytes (Miralax*) 17 gm PO DAILY PRN PRN Reason: CONSTIPATION Spironolactone (Aldactone Tab*) 25 mg PO DAILY [facility] Tamsulosin HCl (Flomax Cap*) 0.4 mg PO DAILY [facility] Vital Signs - 8 hr 11/22/18 11/22/18 11/22/18 01:22 01:29 01:30 Temperature 102.1 F Pulse Rate 103 103 106 Respiratory 24 24 26 Rate Blood Pressure 101/67 101/67 (mmHg) O2 Sat by Pulse 94 95 94 Oximetry 11/22/18 11/22/18 11/22/18 01:57 02:00 02:12 Temperature 102.6 F Pulse Rate 99 Respiratory 24 24 Rate Blood Pressure 96/58 (mmHg) O2 Sat by Pulse 94 93 Oximetry 11/22/18 11/22/18 11/22/18 02:30 02:32 03:04 Temperature 102.4 F 102.4 F 100.6 F Pulse Rate 94 85 Respiratory 20 24 Rate Blood Pressure 102/60 72/40 (mmHg) O2 Sat by Pulse 91 92 Oximetry 11/22/18 11/22/18 11/22/18 03:07 03:30 03:35 Temperature 100.4 F 99.7 F 99.5 F Pulse Rate 85 81 Respiratory 19 17 Rate Blood Pressure 102/53 105/55 (mmHg) O2 Sat by Pulse 92 92 Oximetry 11/22/18 04:00 Temperature 99.1 F Pulse Rate 78 Respiratory 17 Rate Blood Pressure 99/55 (mmHg) O2 Sat by Pulse 93 Oximetry Oxygen Devices in Use Now: None Eyes: No Scleral Icterus Ears/Nose/Mouth/Throat: Clear Oropharnyx Neck: NL Appearance and Movements; NL JVP Respiratory: Clear to Auscultation Cardiovascular: - - Regular rate with Systolic murmur noted. Abdominal: NL Sounds; No Tenderness; No Distention Extremities: No Edema Skin: No Rash or Ulcers Neurological: - - Alert, Oriented to place but not to time. Result Diagrams: 11/22/18 02:05 11/22/18 02:05 Diagnostic Imaging: CXR: Sternotomy suture's noted. Otherwise no pulmonary infiltrate or congestion noted. Official radiology read pending. CT Brain IMPRESSION: 1. Right frontal approach FOREST MANAGER shunt terminating in the frontal horn of the left lateral ventricle. Minimal interval decreased ventricular size. 2. Mild to moderate parechymal volume loss with microvascular white matter disease. 3. Ill-defined hypodensities in the bilateral basal ganglia which appear more prominent than prior study of 11/02/2018 which may be due to microvascular white matter disease versus progression of ischemic brain injury. 3. Encephalomalacia in the right frontal lobe along the FOREST MANAGER shunt tract. 4. 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 Assess/Plan/Problems-Billing Assessment: 3YoM with Dementia, coronary artery disease, status post CABG procedure, hypertension, hyperlipidemia, benign prostatic hypertrophy, Hx of 2 strokes normal pressure hydrocephalus s/p FOREST MANAGER shut few weeks ago, admitted from [facility] for sepsis secondary to UTI. - Patient Problems (1) Sepsis Current Visit: Yes Status: Acute Priority: High Comment: Started on Vanco dosed per pharmacy. Along with ceftriaxone. Follow up cultures and titrate ABx. (2) UTI (urinary tract infection) Current Visit: Yes Status: Acute Priority: High Comment: Same as above. (3) NPH (normal pressure hydrocephalus) Current Visit: No Status: Chronic Priority: Low Code(s): G91.2 - ( IDIOPATHIC) NORMAL PRESSURE HYDROCEPHALUS SNOMED Code(s): 23027517 Comment: S/P Shunt. If headache recurrs consider Neurosurgery consult. (4) Abnormal head CT Current Visit: Yes Status: Acute Code(s): R93.0 - ABNORMAL FINDINGS ON DX IMAGING OF SKULL AND HEAD, NEC SNOMED Code(s): 195311623 Comment: Follow up with neurology/neurosurgery at outpatient regarding the hypodensities seen in CT Brain. Allergies/Medications Medication: Aspirin EC TAB* [Ecotrin EC Low Dose 81 MG*] 81 mg PO DAILY 09/11/18 [History Confirmed 11/22/18] Cholecalciferol CAP/TAB(NF) [Vitamin D3 CAP/TAB (NF)] 5,000 unit PO DAILY [History Confirmed 11/22/18] Cyanocobalamin TAB* [Vitamin B12 TAB*] 1,000 mcg PO DAILY 09/11/18 [History Confirmed 11/22/18] Finasteride TAB* [Proscar TAB*] 5 mg PO DAILY 09/11/18 [History Confirmed ] Multivitamins/Minerals TAB* [Theragran/minerals TAB*] 1 tab PO DAILY 09/11/18 [ History Confirmed 11/22/18] Spironolactone TAB* [Aldactone TAB 25 MG*] 25 mg PO DAILY 09/11/18 [History Confirmed 11/22/18] Citalopram TAB* [Celexa TAB*] 20 mg PO DAILY tab 09/14/18 [Rx Confirmed ] Polyethylene Glycol 3350* [Miralax*] 17 gm PO DAILY PRN packet 09/14/18 [Rx Confirmed 11/22/18] Tamsulosin CAP* [Flomax CAP*] 0.4 mg PO DAILY cap 09/14/18 [Rx Confirmed ] Metoprolol Succinate XL TAB* [Toprol XL TAB*] 25 mg PO BID 10/26/18 [History Confirmed 11/22/18] HYDROcodone/ACETAMIN 5-325 MG* [[place] 5-325 TAB*] 1 tab PO Q4H PRN 7 Days #30 tab MDD 4 11/06/18 [Rx Confirmed 11/22/18] Lisinopril TAB* [Prinivil TAB 10 MG*] 10 mg PO DAILY #30 tab 11/06/18 [Rx Confirmed 11/22/18] Allergies/Adverse Reactions: Allergies Allergy/AdvReac Type Severity Reaction Status Date / Time No Known Allergies Allergy Verified 11/02/18 06:25
[2018-11-22] MEDS ORDERED: Vancomycin(*) 500 MG in NS 0.9% 250 ML* 250 ML IVPB SCH (05:00)
[2018-11-22] MEDS ORDERED: Vancomycin per Pharmacy* NOTE FOLLOW UP PRN (05:05)
[2018-11-22] MEDS: Finasteride TAB* 5 MG PO SCH (08:31)
[2018-11-22] MEDS: Multivitamins/Minerals TAB PO SCH (08:31)
[2018-11-22] MEDS: Cyanocobalamin TAB* 500 MCG PO SCH (08:31)
[2018-11-22] MEDS: Aspirin EC TAB* 81 MG TAB.EC PO SCH (08:32)
[2018-11-22] MEDS: Tamsulosin CAP* 0.4 MG PO SCH (08:32)
[2018-11-22] MEDS: Citalopram TAB* 20 MG PO SCH (08:32)
[2018-11-22] MEDS: Cholecalciferol TAB* 1000 UNITS PO SCH (08:32)
[2018-11-22] MEDS: Heparin VIAL(*) 5000 UNITS/ML VIAL (FIVE THOUSAND) SUBCUT SCH ×2 (08:32→22:13)
[2018-11-22] MEDS: Metoprolol Succinate XL TAB* 25 MG PO SCH ×2 (11:29→22:09)
[2018-11-22] MEDS: Lisinopril TAB* 10 MG PO SCH (11:29)
[2018-11-22] MEDS: Spironolactone TAB* 25 MG PO SCH (11:30)
[2018-11-22] MEDS ORDERED: NS 0.9% 250 ML* 250 ML ONE (14:50)
[2018-11-22] MEDS: Vancomycin(*) 1,000 MG in NS 0.9% 250 ML* 250 ML IVPB SCH (15:03)
[2018-11-22] MEDS: HYDROcodone/ACETAMIN 5-325 MG* 1 TAB PO PRN (15:17)
--- NOTE | 2018-11-22 18:15 | PN ---
Subjective Date of Service: 11/22/18 Interval History: HOSPITALIST PROGRESS NOTE Patient seen and examined at bedside. Care reviewed and d/w Dori Medina RN. He feels better today. Alert and awake, oriented to self and place. Doesn't remember all last night events, but knows he's feeling better now. Denies headache, nausea, vomiting. Family History: Unchanged from Admission Social History: Unchanged from Admission Past Medical History: Unchanged from Admission Objective Active Medications: Acetaminophen (Tylenol Tab*) 650 mg PO Q6H PRN PRN Reason: FEVER Last Admin: 11/22/18 17:58 Dose: 650 mg Hydrocodone Bitart/Acetaminophen ([place] 5-325 Tab*) 1 tab PO Q4H PRN PRN Reason: marked pain Last Admin: 11/22/18 15:17 Dose: 1 tab Aspirin (Aspirin Ec Tab*) 81 mg PO DAILY [facility] Last Admin: 11/22/18 08:32 Dose: 81 mg Cholecalciferol (Vitamin D Tab*) 5,000 units PO DAILY [facility] Last Admin: 11/22/18 08:32 Dose: 5,000 units Citalopram Hydrobromide (Celexa Tab*) 20 mg PO DAILY [facility] Last Admin: 11/22/18 08:32 Dose: 20 mg Cyanocobalamin (Vitamin B12 Tab*) 1,000 mcg PO DAILY [facility] Last Admin: 11/22/18 08:31 Dose: 1,000 mcg Finasteride (Proscar Tab*) 5 mg PO DAILY [facility] Last Admin: 11/22/18 08:31 Dose: 5 mg Heparin Sodium (Porcine) (Heparin Vial(*)) 5,000 units SUBCUT Q12HR [facility] Last Admin: 11/22/18 08:32 Dose: 5,000 units Ceftriaxone Sodium 1 gm/ (Sodium Chloride) 50 mls @ 200 mls/hr IVPB Q24H [facility] Vancomycin HCl 1,000 mg/ (Sodium Chloride) 250 mls @ 166.667 mls/hr IVPB Q12H [facility] Last Admin: 11/22/18 15:03 Dose: 166.667 mls/hr Lisinopril (Prinivil Tab*) 10 mg PO DAILY [facility] Last Admin: 11/22/18 11:29 Dose: Not Given Metoprolol Succinate (Toprol Xl Tab*) 25 mg PO BID [facility] Last Admin: 11/22/18 11:29 Dose: Not Given Multivitamins/Minerals (Theragran/Minerals Tab*) 1 tab PO DAILY [facility] Last Admin: 11/22/18 08:31 Dose: 1 tab Pharmacy Consult (Vancomycin Per Pharmacy*) 1 note FOLLOW UP . PRN PRN Reason: PER PROTOCOL Pharmacy Profile Note (Vancomycin Trough Check) 1 note FOLLOW UP 1330 ONE Stop: 11/23/18 13:31 Polyethylene Glycol/Electrolytes (Miralax*) 17 gm PO DAILY PRN PRN Reason: CONSTIPATION Spironolactone (Aldactone Tab*) 25 mg PO DAILY [facility] Last Admin: 11/22/18 11:30 Dose: Not Given Tamsulosin HCl (Flomax Cap*) 0.4 mg PO DAILY [facility] Last Admin: 11/22/18 08:32 Dose: 0.4 mg Vital Signs - 8 hr 11/22/18 11/22/18 11/22/18 11:15 15:15 15:17 Temperature 98.9 F 99.0 F Pulse Rate 67 77 Respiratory 17 17 18 Rate Blood Pressure 118/50 148/67 (mmHg) O2 Sat by Pulse 97 95 Oximetry 11/22/18 18:03 Temperature Pulse Rate Respiratory 18 Rate Blood Pressure (mmHg) O2 Sat by Pulse Oximetry Oxygen Devices in Use Now: None Appearance: Pleasant elderly gentleman sitting up in bed in NAD. Eyes: No Scleral Icterus Ears/Nose/Mouth/Throat: Mucous Membranes Moist Neck: Trachea Midline Respiratory: Symmetrical Chest Expansion and Respiratory Effort, Clear to Auscultation Cardiovascular: RRR - Normal S1 and S2, +SM Abdominal: NL Sounds; No Tenderness; No Distention Extremities: No Edema Neurological: - - AAOx2 (self and place), ERIC Result Diagrams: 11/22/18 02:05 11/22/18 02:05 Diagnostic Imaging: CXR: Sternotomy suture's noted. Otherwise no pulmonary infiltrate or congestion noted. Official radiology read pending. CT Brain IMPRESSION: 1. Right frontal approach LANDSCAPING MANAGER shunt terminating in the frontal horn of the left lateral ventricle. Minimal interval decreased ventricular size. 2. Mild to moderate parechymal volume loss with microvascular white matter disease. 3. Ill-defined hypodensities in the bilateral basal ganglia which appear more prominent than prior study of 11/02/2018 which may be due to microvascular white matter disease versus progression of ischemic brain injury. 3. Encephalomalacia in the right frontal lobe along the LANDSCAPING MANAGER shunt tract. 4. 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 Assess/Plan/Problems-Billing Assessment: Mr Saavedra is a 73 yo M with PMH of NPH s/p LANDSCAPING MANAGER shunt 11/02/18, BPH, HTN, PVD, HLD, CAD s/p CABG, aortic insufficiency s/p porcine AVR, urinary retention requiring Rehman (failed 2 trials of; spontaneous void); presented to ED with c/ o SCHWARTZ, found to have fever 102.6 and UTI. - Patient Problems (1) Sepsis Comment: - Met sepsis criteria on admission, with leukocytosis, tachycardia, and fever. - Source is UTI. (2) UTI (urinary tract infection) Comment: - Rehman catheter related, present on admission. - Continue Ceftriaxone, Vancomycin (for possible VRE). - Blood culture shows no growth so far. - Follow urine culture. - Change Rehman after 48h of antibiotics. - Continue Flomax. - Plan for Urology f/u as outpatient on his prior discharge. (3) NPH (normal pressure hydrocephalus) Comment: - S/p LANDSCAPING MANAGER Shunt 11/02/18. - Has remained headachefree. - D/w Neurosurgery (Dr Miller) - agrees his symptoms are likely secondary to UTI, but will see in consult. (4) HTN (hypertension) Comment: - Controlled - continue metoprolol, spironolactone, lisinopril, amlodipine. (5) DVT prophylaxis Comment: - SQ heparin. Status and Disposition: Inpatient.
--- NOTE | 2018-11-22 21:28 | CONS ---
CONSULTATION REPORT: DATE OF CONSULT: 11/22/18 HISTORY OF PRESENT ILLNESS: The patient is a very pleasant 73-year-old male who has a history of right frontal RETIREMENT OFFICER shunt placement approximately 3 weeks ago for NPH. The patient tolerated the procedure very well and he was living in a fci. Because of fever, he was admitted to the hospital with urosepsis. Requested to see patient because of the history of RETIREMENT OFFICER shunt. The patient reports that he has done very well. He has no headaches. He has no nausea or vomiting. His vision is good. He denies any difficulty with his speech or with swallowing. He denies any weakness, numbness, or tingling in his extremities. He denies any seizures. He reports that he is ability to ambulate as similar to preop. PAST MEDICAL HISTORY: Coronary artery disease, hypercholesterolemia, hypertension, valvular heart disease, aortic insufficiency, aortic valve placement, arthritis, tendonitis, left rotator cuff tear, cataracts, TIAs. PAST SURGICAL HISTORY: CABG, aortic valve replacement, cholecystectomy, RETIREMENT OFFICER shunt placement. ALLERGIES: No known drug allergies. FAMILY HISTORY: Cardiac disease. SOCIAL HISTORY: Tobacco: Negative. Alcohol: Negative. Recreational drug use : Negative. PHYSICAL EXAM: On physical examination, the patient is not in acute distress. He is awake, alert, and oriented x3. His pupils are equal and reactive. Cranial nerves II through XII are grossly intact. Motor 4 to 5/5 in all extremities. Sensory is grossly intact. Deep tendon reflexes +1 bilaterally. No clonus, no Babinski's. Chanda's negative. The patient has no tenderness to palpation of the cervical, thoracic, and lumbar spine. His range of motion is at the baseline without signs of meningismus. The patient's wounds are soft, clean and intact, healing very well. The patient's valve pumps and refills. DIAGNOSTIC STUDIES/LAB DATA: Imaging: The patient had a CT scan of the brain, revealing right frontal RETIREMENT OFFICER shunt with the tip bending into the left frontal ventricle, similar to his previous imaging. His ventricle size seems slightly decreased compared to previous image immediately postoperatively. ASSESSMENT: The patient is a very pleasant 73-year-old gentleman status post right frontal RETIREMENT OFFICER shunt placement for normal pressure hydrocephalus, who was admitted for urosepsis. PLAN: The patient at this point is doing quite well. He has been treated for urosepsis by the hospitalist team. No need for any surgical intervention at this time. We will consider a repeat CT scan in approximately 1 month. There is a small area of hypodensity on the right frontal lobe that seemed to be present preoperatively, but seems more profound on this CT scan. This may likely represent an underlying process or evolution of a previous stroke. We recommend an MRI of the brain with or without contrast at some point. This can be done as an outpatient. If MRI will be scheduled, it has to be coordinated with our office, so we will be able to check the settings of the valve before and after the imaging. Thank you for allowing us to participate in the care of this patient. Please do not hesitate to contact our office in case you have any further questions or concerns regarding the care of this patient. [id number]/CPS #: [id number] SATHISH
[2018-11-23] MEDS: Vancomycin(*) 1,000 MG in NS 0.9% 250 ML* 250 ML IVPB SCH (00:41)
[2018-11-23] MEDS: cefTRIAXone(*) 1 GM in NS 0.9% 50 ML* 50 ML IVPB SCH (03:34)
[2018-11-23 04:08] LABS: Urine Appearance Turbid; Urine Bacteria Absent (Absent); Urine Bilirubin Negative (Negative); Urine Blood 2+ (Negative); Urine Color Yellow; Urine Glucose Negative (Negative); Urine Ketones Negative (Negative); Urine Nitrite Negative (Negative); Urine Protein 1+(30 mg/dL) (Negative); Urine Red Blood Cell 3+(>10/hpf) (Absent); Urine Specific Gravity 1.015 (1.010-1.030); Urine Transitional Epithelial Present (Absent); Urine Urobilinogen Negative (Negative); Urine White Blood Cell 3+(>20/hpf) (Absent)
[2018-11-23 04:54] LABS: ABS Basophils 0.1 10^3/ul (0-0.2); ABS Eosinophils 0.1 10^3/ul (0-0.6); ABS Lymphocytes 0.7 10^3/ul (1.0-4.8); ABS Monocytes 0.9 10^3/ul (0-0.8); ABS Neutrophils 8.1 10^3/ul (1.5-7.7); Eosinophil % 0.7 %; Hematocrit 30 % (42-52); Hemoglobin 10.4 g/dL (14.0-18.0); Lymphocyte % 7.4 %; Mean Corpuscular HGB Conc 34 g/dL (31-36); Mean Corpuscular Hemoglobin 30 pg (27-31); Mean Corpuscular Volume 88 fL (80-94); Mean Platelet Volume 6.6 fL (7.4-10.4); Platelet Count 234 10^3/uL (150-450); Red Blood Count 3.46 10^6 /uL (4.18-5.48); Red Cell Distribution Width 14 % (10-15); White Blood Count 9.9 10^3/uL (3.5-10.8)
[2018-11-23 05:08] LABS: BUN/Creatinine Ratio 18.2 (8-20); Calcium 8.7 mg/dL (8.6-10.3); EGFR African American 89.4 (>60); EGFR Non-African American 73.9 (>60); Potassium 4.2 mmol/L (3.5-5.0)
[2018-11-23] MEDS: Spironolactone TAB* 25 MG PO SCH (09:30)
[2018-11-23] MEDS: Heparin VIAL(*) 5000 UNITS/ML VIAL (FIVE THOUSAND) SUBCUT SCH ×2 (09:30→20:53)
[2018-11-23] MEDS: Multivitamins/Minerals TAB PO SCH (09:30)
[2018-11-23] MEDS: Aspirin EC TAB* 81 MG TAB.EC PO SCH (09:30)
[2018-11-23] MEDS: Tamsulosin CAP* 0.4 MG PO SCH (09:31)
[2018-11-23] MEDS: Metoprolol Succinate XL TAB* 25 MG PO SCH ×2 (09:31→20:54)
[2018-11-23] MEDS: Cholecalciferol TAB* 1000 UNITS PO SCH (09:31)
[2018-11-23] MEDS: Finasteride TAB* 5 MG PO SCH (09:31)
[2018-11-23] MEDS: Cyanocobalamin TAB* 500 MCG PO SCH (09:31)
[2018-11-23] MEDS: Lisinopril TAB* 10 MG PO SCH (09:31)
[2018-11-23] MEDS: Citalopram TAB* 20 MG PO SCH (09:31)
--- NOTE | 2018-11-23 11:17 | PN ---
Subjective Date of Service: 11/23/18 Interval History: No new c/o. Pt states he walked in [place] with walker unassisted. Family History: Unchanged from Admission Social History: Unchanged from Admission Past Medical History: Unchanged from Admission Objective Active Medications: Acetaminophen (Tylenol Tab*) 650 mg PO Q6H PRN PRN Reason: FEVER Last Admin: 11/22/18 17:58 Dose: 650 mg Hydrocodone Bitart/Acetaminophen ([place] 5-325 Tab*) 1 tab PO Q4H PRN PRN Reason: marked pain Last Admin: 11/22/18 15:17 Dose: 1 tab Aspirin (Aspirin Ec Tab*) 81 mg PO DAILY [facility] Last Admin: 11/23/18 09:30 Dose: 81 mg Cholecalciferol (Vitamin D Tab*) 5,000 units PO DAILY [facility] Last Admin: 11/23/18 09:31 Dose: 5,000 units Citalopram Hydrobromide (Celexa Tab*) 20 mg PO DAILY [facility] Last Admin: 11/23/18 09:31 Dose: 20 mg Cyanocobalamin (Vitamin B12 Tab*) 1,000 mcg PO DAILY [facility] Last Admin: 11/23/18 09:31 Dose: 1,000 mcg Finasteride (Proscar Tab*) 5 mg PO DAILY [facility] Last Admin: 11/23/18 09:31 Dose: 5 mg Heparin Sodium (Porcine) (Heparin Vial(*)) 5,000 units SUBCUT Q12HR [facility] Last Admin: 11/23/18 09:30 Dose: 5,000 units Ceftriaxone Sodium 1 gm/ (Sodium Chloride) 50 mls @ 200 mls/hr IVPB Q24H [facility] Last Admin: 11/23/18 03:34 Dose: 200 mls/hr Lisinopril (Prinivil Tab*) 10 mg PO DAILY [facility] Last Admin: 11/23/18 09:31 Dose: 10 mg Metoprolol Succinate (Toprol Xl Tab*) 25 mg PO BID [facility] Last Admin: 11/23/18 09:31 Dose: 25 mg Multivitamins/Minerals (Theragran/Minerals Tab*) 1 tab PO DAILY [facility] Last Admin: 11/23/18 09:30 Dose: 1 tab Polyethylene Glycol/Electrolytes (Miralax*) 17 gm PO DAILY PRN PRN Reason: CONSTIPATION Spironolactone (Aldactone Tab*) 25 mg PO DAILY [facility] Last Admin: 11/23/18 09:30 Dose: 25 mg Tamsulosin HCl (Flomax Cap*) 0.4 mg PO DAILY [facility] Last Admin: 11/23/18 09:31 Dose: 0.4 mg Vital Signs - 8 hr 11/23/18 07:11 Temperature 98.9 F Pulse Rate 67 Respiratory 16 Rate Blood Pressure 142/62 (mmHg) O2 Sat by Pulse 95 Oximetry Oxygen Devices in Use Now: None Appearance: Alert, partly up in bed. In good spirits. Looks comfortable. Eyes: No Scleral Icterus Extremities: No Edema, No Clubbing, Cyanosis Skin: No Rash or Ulcers, No Nodules or Sclerosis, - Neurological: Alert and Oriented x 3, NL Sensation Result Diagrams: 11/23/18 04:30 11/23/18 04:30 Microbiology and Other Data: Microbiology 11/22/18 02:05 Anaerobic Blood Culture - Preliminary Blood Venous Diagnostic Imaging: CXR: Sternotomy suture's noted. Otherwise no pulmonary infiltrate or congestion noted. Official radiology read pending. CT Brain IMPRESSION: 1. Right frontal approach SEARCH ENGINE OPTIMIZATION STRATEGIST shunt terminating in the frontal horn of the left lateral ventricle. Minimal interval decreased ventricular size. 2. Mild to moderate parechymal volume loss with microvascular white matter disease. 3. Ill-defined hypodensities in the bilateral basal ganglia which appear more prominent than prior study of 11/02/2018 which may be due to microvascular white matter disease versus progression of ischemic brain injury. 3. Encephalomalacia in the right frontal lobe along the SEARCH ENGINE OPTIMIZATION STRATEGIST shunt tract. 4. 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 Assess/Plan/Problems-Billing Assessment: Mr Saavedra is a 73 yo M with PMH of NPH s/p SEARCH ENGINE OPTIMIZATION STRATEGIST shunt 11/02/18, BPH, HTN, PVD, HLD, CAD s/p CABG, aortic insufficiency s/p porcine AVR, urinary retention requiring Rehman (failed 2 trials of; spontaneous void); presented to ED with c/ o SCHWARTZ, found to have fever 102.6 and UTI. - Patient Problems (1) UTI (urinary tract infection) Current Visit: Yes Status: Acute Priority: High Comment: - Rehman catheter related, present on admission. - Continue Ceftriaxone. - Blood culture shows E.coli in 2 bottles, sens pending as of 11/23. - Urine culture E. coli and Kleb, sens pending. . - Change Rehman 11/23 requested. - Continue Flomax. - Plan for Urology f/u as outpatient on his prior discharge. (2) NPH (normal pressure hydrocephalus) Current Visit: Yes Status: Chronic Priority: Low Code(s): G91.2 - ( IDIOPATHIC) NORMAL PRESSURE HYDROCEPHALUS SNOMED Code(s): 14778938 Comment: - S/p SEARCH ENGINE OPTIMIZATION STRATEGIST Shunt 11/02/18. - Has remained headachefree. - Dr Miller consult appreciated. Pt has office appt in November. (3) HTN (hypertension) Current Visit: Yes Status: Acute Code(s): I10 - ESSENTIAL (PRIMARY) HYPERTENSION SNOMED Code(s): 08315201 Comment: - Controlled - continue metoprolol, spironolactone, lisinopril. (4) BPH (benign prostatic hyperplasia) Current Visit: No Status: Acute Code(s): N40.0 - BENIGN PROSTATIC HYPERPLASIA WITHOUT LOWER URINRY TRACT SYMP SNOMED Code(s): 854340569 Comment: Continue finasteride and tamsulosin. Consider voiding trial in about 10 days. Status and Disposition: Inpatient.
[2018-11-23] MEDS ORDERED: Vancomycin Trough Check NOTE FOLLOW UP ONE (13:30)
--- NOTE | 2018-11-23 14:40 | PN ---
Progress Note - Progress Note Date of Service: 11/23/18 Note: Patient is doing well no acute changes overnight, he denies headaches nausea or vomiting. At this time will have patient complete MRI as an outpatient within 1 week, will coordinate with office.
[2018-11-23] MEDS: HYDROcodone/ACETAMIN 5-325 MG* 1 TAB PO PRN (19:30)
[2018-11-24] MEDS: cefTRIAXone(*) 1 GM in NS 0.9% 50 ML* 50 ML IVPB SCH (03:51)
[2018-11-24] MEDS: Spironolactone TAB* 25 MG PO SCH (09:19)
[2018-11-24] MEDS: Metoprolol Succinate XL TAB* 25 MG PO SCH ×2 (09:19→20:11)
[2018-11-24] MEDS: Aspirin EC TAB* 81 MG TAB.EC PO SCH (09:20)
[2018-11-24] MEDS: Lisinopril TAB* 10 MG PO SCH (09:20)
[2018-11-24] MEDS: Cholecalciferol TAB* 1000 UNITS PO SCH (09:20)
[2018-11-24] MEDS: Cyanocobalamin TAB* 500 MCG PO SCH (09:20)
[2018-11-24] MEDS: Citalopram TAB* 20 MG PO SCH (09:20)
[2018-11-24] MEDS: Tamsulosin CAP* 0.4 MG PO SCH (09:20)
[2018-11-24] MEDS: Multivitamins/Minerals TAB PO SCH (09:20)
[2018-11-24] MEDS: Heparin VIAL(*) 5000 UNITS/ML VIAL (FIVE THOUSAND) SUBCUT SCH ×2 (09:21→20:14)
[2018-11-24] MEDS: Finasteride TAB* 5 MG PO SCH (09:21)
[2018-11-24] MEDS: HYDROcodone/ACETAMIN 5-325 MG* 1 TAB PO PRN ×2 (09:30→20:16)
--- NOTE | 2018-11-24 12:33 | PN ---
Subjective Interval History: Afebrile, no acute events overnight worried that he was more confused this AM Ecoli and Klebsiella pna in urine, both sensitive to CFTX. PT ordered. Would need reauthorization (per [facility]) [facility] Does not think his gait is much different post ENERGY CONSULTANT shunt placement. Family History: Unchanged from Admission Social History: Unchanged from Admission Past Medical History: Unchanged from Admission Objective Active Medications: Acetaminophen (Tylenol Tab*) 650 mg PO Q6H PRN PRN Reason: FEVER Last Admin: 11/22/18 17:58 Dose: 650 mg Hydrocodone Bitart/Acetaminophen ([place] 5-325 Tab*) 1 tab PO Q4H PRN PRN Reason: marked pain Last Admin: 11/24/18 09:30 Dose: 1 tab Aspirin (Aspirin Ec Tab*) 81 mg PO DAILY [facility] Last Admin: 11/24/18 09:20 Dose: 81 mg Cholecalciferol (Vitamin D Tab*) 5,000 units PO DAILY [facility] Last Admin: 11/24/18 09:20 Dose: 5,000 units Citalopram Hydrobromide (Celexa Tab*) 20 mg PO DAILY [facility] Last Admin: 11/24/18 09:20 Dose: 20 mg Cyanocobalamin (Vitamin B12 Tab*) 1,000 mcg PO DAILY [facility] Last Admin: 11/24/18 09:20 Dose: 1,000 mcg Finasteride (Proscar Tab*) 5 mg PO DAILY [facility] Last Admin: 11/24/18 09:21 Dose: 5 mg Heparin Sodium (Porcine) (Heparin Vial(*)) 5,000 units SUBCUT Q12HR [facility] Last Admin: 11/24/18 09:21 Dose: 5,000 units Ceftriaxone Sodium 1 gm/ (Sodium Chloride) 50 mls @ 200 mls/hr IVPB Q24H [facility] Last Admin: 11/24/18 03:51 Dose: 200 mls/hr Lisinopril (Prinivil Tab*) 10 mg PO DAILY [facility] Last Admin: 11/24/18 09:20 Dose: 10 mg Metoprolol Succinate (Toprol Xl Tab*) 25 mg PO BID [facility] Last Admin: 11/24/18 09:19 Dose: 25 mg Multivitamins/Minerals (Theragran/Minerals Tab*) 1 tab PO DAILY [facility] Last Admin: 11/24/18 09:20 Dose: 1 tab Polyethylene Glycol/Electrolytes (Miralax*) 17 gm PO DAILY PRN PRN Reason: CONSTIPATION Spironolactone (Aldactone Tab*) 25 mg PO DAILY [facility] Last Admin: 11/24/18 09:19 Dose: 25 mg Tamsulosin HCl (Flomax Cap*) 0.4 mg PO DAILY [facility] Last Admin: 11/24/18 09:20 Dose: 0.4 mg Vital Signs - 8 hr 11/24/18 11/24/18 11/24/18 08:00 08:10 09:00 Temperature 98.1 F Pulse Rate 65 Respiratory 19 19 Rate Blood Pressure 155/71 (mmHg) O2 Sat by Pulse 99 98 Oximetry 11/24/18 09:30 Temperature Pulse Rate Respiratory 19 Rate Blood Pressure (mmHg) O2 Sat by Pulse Oximetry Oxygen Devices in Use Now: None Appearance: NAD, Eyes: No Scleral Icterus Ears/Nose/Mouth/Throat: NL Teeth, Lips, Gums Neck: NL Appearance and Movements; NL JVP, Trachea Midline Respiratory: Symmetrical Chest Expansion and Respiratory Effort, Clear to Auscultation Cardiovascular: NL Sounds; No Murmurs; No JVD Abdominal: NL Sounds; No Tenderness; No Distention Skin: No Rash or Ulcers Neurological: NL Sensation, - - oriented to name, 2019, situation Lines/Tubes/Other Access: Clean, Dry and Intact Rehman Result Diagrams: 11/23/18 04:30 11/23/18 04:30 Microbiology and Other Data: Microbiology 11/23/18 03:40 Urine Urine Culture - Final No Growth (<1,000 CFU/mL) 11/22/18 01:52 Urine Urine Culture - Final Escherichia Coli Klebsiella Pneumoniae 11/22/18 02:05 Blood Venous Aerobic Blood Culture - Final Escherichia Coli 11/22/18 02:05 Blood Venous Anaerobic Blood Culture - Preliminary No Growth Day 2 11/22/18 02:05 Blood Venous Aerobic Blood Culture - Preliminary No Growth Day 2 11/22/18 02:05 Blood Venous Anaerobic Blood Culture - Final Escherichia Coli Diagnostic Imaging: CXR: Sternotomy suture's noted. Otherwise no pulmonary infiltrate or congestion noted. Official radiology read pending. CT Brain IMPRESSION: 1. Right frontal approach ENERGY CONSULTANT shunt terminating in the frontal horn of the left lateral ventricle. Minimal interval decreased ventricular size. 2. Mild to moderate parechymal volume loss with microvascular white matter disease. 3. Ill-defined hypodensities in the bilateral basal ganglia which appear more prominent than prior study of 11/02/2018 which may be due to microvascular white matter disease versus progression of ischemic brain injury. 3. Encephalomalacia in the right frontal lobe along the ENERGY CONSULTANT shunt tract. 4. 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 Assess/Plan/Problems-Billing Assessment: Mr Saavedra is a 73 yo M with PMH of NPH s/p ENERGY CONSULTANT shunt 11/02/18, BPH, HTN, PVD, HLD, CAD s/p CABG, aortic insufficiency s/p porcine AVR, urinary retention requiring Rehman (failed 2 trials of spontaneous void); presented to ED with c/o SCHWARTZ, found to have fever 102.6 and Ecoli & Klebsiella UTI. - Patient Problems (1) UTI (urinary tract infection) Current Visit: Yes Status: Acute Priority: High Comment: - Rehman catheter related, present on admission. - Continue Ceftriaxone. Day 3 - Blood culture shows E.coli in 2 bottles, sens pending as of 11/23. - Urine culture E. coli and Kleb, resistant to ampicillin, macrobid(kleb) - Change Rehman 11/25 requested. - Continue Flomax. - Plan for Urology f/u as outpatient on his prior discharge. (2) DVT prophylaxis Current Visit: Yes Status: Acute Code(s): Z29.9 - ENCOUNTER FOR PROPHYLACTIC MEASURES, UNSPECIFIED SNOMED Code(s): 281130616 Comment: - SQ heparin. (3) HTN (hypertension) Current Visit: Yes Status: Acute Code(s): I10 - ESSENTIAL (PRIMARY) HYPERTENSION SNOMED Code(s): 56752666 Comment: - Controlled - continue metoprolol 25 mg bid, spironolactone 25mg, lisinopril 10mg (4) NPH (normal pressure hydrocephalus) Current Visit: Yes Status: Chronic Priority: Low Code(s): G91.2 - ( IDIOPATHIC) NORMAL PRESSURE HYDROCEPHALUS SNOMED Code(s): 59645949 Comment: - S/p ENERGY CONSULTANT Shunt 11/02/18. - Has remained headachefree. - Dr Miller consult appreciated. Pt has office appt in November. (5) CAD (coronary artery disease) Current Visit: Yes Status: Acute Code(s): I25.10 - ATHSCL HEART DISEASE OF [place] CORONARY ARTERY W/O ANG PCTRS SNOMED Code(s): 53679344 Comment: continue aspirin 81mg, metoprolol tartrate 25mg BID. (6) BPH (benign prostatic hyperplasia) Current Visit: No Status: Acute Code(s): N40.0 - BENIGN PROSTATIC HYPERPLASIA WITHOUT LOWER URINRY TRACT SYMP SNOMED Code(s): 543090693 Comment: Continue finasteride and tamsulosin. Consider voiding trial in about 10 days. Status and Disposition: Inpatient.will need SNF (from [facility])
[2018-11-25] MEDS: cefTRIAXone(*) 1 GM in NS 0.9% 50 ML* 50 ML IVPB SCH (04:22)
[2018-11-25] MEDS: Finasteride TAB* 5 MG PO SCH (09:14)
[2018-11-25] MEDS: Aspirin EC TAB* 81 MG TAB.EC PO SCH (09:14)
[2018-11-25] MEDS: Cholecalciferol TAB* 1000 UNITS PO SCH (09:14)
[2018-11-25] MEDS: Multivitamins/Minerals TAB PO SCH (09:14)
[2018-11-25] MEDS: Citalopram TAB* 20 MG PO SCH (09:14)
[2018-11-25] MEDS: Metoprolol Succinate XL TAB* 25 MG PO SCH ×2 (09:15→20:40)
[2018-11-25] MEDS: Lisinopril TAB* 10 MG PO SCH (09:15)
[2018-11-25] MEDS: Cyanocobalamin TAB* 500 MCG PO SCH (09:15)
[2018-11-25] MEDS: Spironolactone TAB* 25 MG PO SCH (09:15)
[2018-11-25] MEDS: Tamsulosin CAP* 0.4 MG PO SCH (09:15)
[2018-11-25] MEDS: Heparin VIAL(*) 5000 UNITS/ML VIAL (FIVE THOUSAND) SUBCUT SCH ×2 (09:16→20:56)
--- NOTE | 2018-11-25 12:29 | PN ---
Subjective Date of Service: 11/25/18 Interval History: Doing well, no new c/o. Family History: Unchanged from Admission Social History: Unchanged from Admission Past Medical History: Unchanged from Admission Objective Active Medications: Acetaminophen (Tylenol Tab*) 650 mg PO Q6H PRN PRN Reason: FEVER Last Admin: 11/22/18 17:58 Dose: 650 mg Hydrocodone Bitart/Acetaminophen ([place] 5-325 Tab*) 1 tab PO Q4H PRN PRN Reason: marked pain Last Admin: 11/24/18 20:16 Dose: 1 tab Aspirin (Aspirin Ec Tab*) 81 mg PO DAILY [facility] Last Admin: 11/25/18 09:14 Dose: 81 mg Cholecalciferol (Vitamin D Tab*) 5,000 units PO DAILY [facility] Last Admin: 11/25/18 09:14 Dose: 5,000 units Citalopram Hydrobromide (Celexa Tab*) 20 mg PO DAILY [facility] Last Admin: 11/25/18 09:14 Dose: 20 mg Cyanocobalamin (Vitamin B12 Tab*) 1,000 mcg PO DAILY [facility] Last Admin: 11/25/18 09:15 Dose: 1,000 mcg Finasteride (Proscar Tab*) 5 mg PO DAILY [facility] Last Admin: 11/25/18 09:14 Dose: 5 mg Heparin Sodium (Porcine) (Heparin Vial(*)) 5,000 units SUBCUT Q12HR [facility] Last Admin: 11/25/18 09:16 Dose: 5,000 units Ceftriaxone Sodium 1 gm/ (Sodium Chloride) 50 mls @ 200 mls/hr IVPB Q24H [facility] Last Admin: 11/25/18 04:22 Dose: 200 mls/hr Lisinopril (Prinivil Tab*) 10 mg PO DAILY [facility] Last Admin: 11/25/18 09:15 Dose: 10 mg Metoprolol Succinate (Toprol Xl Tab*) 25 mg PO BID [facility] Last Admin: 11/25/18 09:15 Dose: 25 mg Multivitamins/Minerals (Theragran/Minerals Tab*) 1 tab PO DAILY [facility] Last Admin: 11/25/18 09:14 Dose: 1 tab Polyethylene Glycol/Electrolytes (Miralax*) 17 gm PO DAILY PRN PRN Reason: CONSTIPATION Spironolactone (Aldactone Tab*) 25 mg PO DAILY [facility] Last Admin: 11/25/18 09:15 Dose: 25 mg Tamsulosin HCl (Flomax Cap*) 0.4 mg PO DAILY [facility] Last Admin: 11/25/18 09:15 Dose: 0.4 mg Oxygen Devices in Use Now: None Appearance: Alert, partly up in bed. In good spirits, looks comfortable. Eyes: No Scleral Icterus Extremities: No Edema, No Clubbing, Cyanosis, - Skin: No Rash or Ulcers, No Nodules or Sclerosis, - Neurological: Alert and Oriented x 3, NL Sensation - Some memory deficits. Result Diagrams: 11/23/18 04:30 11/23/18 04:30 Microbiology and Other Data: Microbiology 11/23/18 03:40 Urine Urine Culture - Final No Growth (<1,000 CFU/mL) 11/22/18 01:52 Urine Urine Culture - Final Escherichia Coli Klebsiella Pneumoniae 11/22/18 02:05 Blood Venous Aerobic Blood Culture - Final Escherichia Coli 11/22/18 02:05 Blood Venous Anaerobic Blood Culture - Preliminary No Growth Day 2 11/22/18 02:05 Blood Venous Aerobic Blood Culture - Preliminary No Growth Day 2 11/22/18 02:05 Blood Venous Anaerobic Blood Culture - Final Escherichia Coli Diagnostic Imaging: CXR: Sternotomy suture's noted. Otherwise no pulmonary infiltrate or congestion noted. Official radiology read pending. CT Brain IMPRESSION: 1. Right frontal approach INDUCTION MACHINE SETTER shunt terminating in the frontal horn of the left lateral ventricle. Minimal interval decreased ventricular size. 2. Mild to moderate parechymal volume loss with microvascular white matter disease. 3. Ill-defined hypodensities in the bilateral basal ganglia which appear more prominent than prior study of 11/02/2018 which may be due to microvascular white matter disease versus progression of ischemic brain injury. 3. Encephalomalacia in the right frontal lobe along the INDUCTION MACHINE SETTER shunt tract. 4. 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 Assess/Plan/Problems-Billing Assessment: Mr Saavedra is a 73 yo M with PMH of NPH s/p INDUCTION MACHINE SETTER shunt 11/02/18, BPH, HTN, PVD, HLD, CAD s/p CABG, aortic insufficiency s/p porcine AVR, urinary retention requiring Rehman (failed 2 trials of spontaneous void); presented to ED with c/o SCHWARTZ, found to have fever 102.6 and Ecoli & Klebsiella UTI. - Patient Problems (1) UTI (urinary tract infection) Current Visit: Yes Status: Acute Priority: High Comment: - Rehman catheter related, present on admission. - Continue Ceftriaxone, had 2 gm in ED and 1 gm vanco 11/22/18 04:14, 1 gm IV daily since then - Blood culture shows E.coli in 2 bottles, sens pending as of 11/23/18. - Urine culture E. coli and Kleb, resistant to ampicillin, macrobid(kleb) Discussed with Dr. Luque, who will see patient 11/27/18. Fup blood C&S x 2 11/25 , if neg will request midline catheter for outpt IV antibiotics. - Continue Flomax. - Plan for Urology f/u as outpatient on his prior discharge. (2) NPH (normal pressure hydrocephalus) Current Visit: Yes Status: Chronic Priority: Low Code(s): G91.2 - ( IDIOPATHIC) NORMAL PRESSURE HYDROCEPHALUS SNOMED Code(s): 86204417 Comment: - S/p INDUCTION MACHINE SETTER Shunt 11/02/18. - Has remained headachefree. - Dr Miller consult appreciated. Pt has office appt in November. (3) HTN (hypertension) Current Visit: Yes Status: Acute Code(s): I10 - ESSENTIAL (PRIMARY) HYPERTENSION SNOMED Code(s): 75036498 Comment: - Controlled - continue metoprolol 25 mg bid, spironolactone 25mg, lisinopril 10mg (4) BPH (benign prostatic hyperplasia) Current Visit: No Status: Acute Code(s): N40.0 - BENIGN PROSTATIC HYPERPLASIA WITHOUT LOWER URINRY TRACT SYMP SNOMED Code(s): 951988704 Comment: Continue finasteride and tamsulosin. Consider voiding trial in about 10 days. Status and Disposition: Inpatient.will need SNF (from [facility])
[2018-11-25] MEDS: HYDROcodone/ACETAMIN 5-325 MG* 1 TAB PO PRN (20:56)
[2018-11-25 22:10] LABS: Urine Appearance Cloudy; Urine Bacteria Absent (Absent); Urine Bilirubin Negative (Negative); Urine Blood 3+ (Negative); Urine Color Yellow; Urine Glucose Negative (Negative); Urine Ketones Negative (Negative); Urine Nitrite Negative (Negative); Urine Protein 2+(100 mg/dL) (Negative); Urine Red Blood Cell 3+(>10/hpf) (Absent); Urine Specific Gravity 1.018 (1.010-1.030); Urine Urobilinogen Negative (Negative); Urine White Blood Cell 3+(>20/hpf) (Absent)
[2018-11-26] MEDS: cefTRIAXone(*) 1 GM in NS 0.9% 50 ML* 50 ML IVPB SCH (03:57)
[2018-11-26] MEDS: Heparin VIAL(*) 5000 UNITS/ML VIAL (FIVE THOUSAND) SUBCUT SCH ×2 (08:25→20:40)
[2018-11-26] MEDS: Spironolactone TAB* 25 MG PO SCH (08:26)
[2018-11-26] MEDS: Multivitamins/Minerals TAB PO SCH (08:26)
[2018-11-26] MEDS: Citalopram TAB* 20 MG PO SCH (08:26)
[2018-11-26] MEDS: Finasteride TAB* 5 MG PO SCH (08:26)
[2018-11-26] MEDS: Cyanocobalamin TAB* 500 MCG PO SCH (08:26)
[2018-11-26] MEDS: Cholecalciferol TAB* 1000 UNITS PO SCH (08:26)
[2018-11-26] MEDS: Aspirin EC TAB* 81 MG TAB.EC PO SCH (08:27)
[2018-11-26] MEDS: Metoprolol Succinate XL TAB* 25 MG PO SCH ×2 (08:27→20:37)
[2018-11-26] MEDS: Tamsulosin CAP* 0.4 MG PO SCH (08:27)
[2018-11-26] MEDS: Lisinopril TAB* 10 MG PO SCH (08:42)
--- NOTE | 2018-11-26 12:16 | PN ---
Subjective Date of Service: 11/26/18 Interval History: No c/o. No bowel c/o. Good appetite. Family History: Unchanged from Admission Social History: Unchanged from Admission Past Medical History: Unchanged from Admission Objective Active Medications: Acetaminophen (Tylenol Tab*) 650 mg PO Q6H PRN PRN Reason: FEVER Last Admin: 11/22/18 17:58 Dose: 650 mg Hydrocodone Bitart/Acetaminophen ([place] 5-325 Tab*) 1 tab PO Q4H PRN PRN Reason: marked pain Last Admin: 11/25/18 20:56 Dose: 1 tab Aspirin (Aspirin Ec Tab*) 81 mg PO DAILY [facility] Last Admin: 11/26/18 08:27 Dose: 81 mg Cholecalciferol (Vitamin D Tab*) 5,000 units PO DAILY [facility] Last Admin: 11/26/18 08:26 Dose: 5,000 units Citalopram Hydrobromide (Celexa Tab*) 20 mg PO DAILY [facility] Last Admin: 11/26/18 08:26 Dose: 20 mg Cyanocobalamin (Vitamin B12 Tab*) 1,000 mcg PO DAILY [facility] Last Admin: 11/26/18 08:26 Dose: 1,000 mcg Finasteride (Proscar Tab*) 5 mg PO DAILY [facility] Last Admin: 11/26/18 08:26 Dose: 5 mg Heparin Sodium (Porcine) (Heparin Vial(*)) 5,000 units SUBCUT Q12HR [facility] Last Admin: 11/26/18 08:25 Dose: 5,000 units Ceftriaxone Sodium 1 gm/ (Sodium Chloride) 50 mls @ 200 mls/hr IVPB Q24H [facility] Last Admin: 11/26/18 03:57 Dose: 200 mls/hr Lisinopril (Prinivil Tab*) 10 mg PO DAILY [facility] Last Admin: 11/26/18 08:42 Dose: 10 mg Metoprolol Succinate (Toprol Xl Tab*) 25 mg PO BID [facility] Last Admin: 11/26/18 08:27 Dose: Not Given Multivitamins/Minerals (Theragran/Minerals Tab*) 1 tab PO DAILY [facility] Last Admin: 11/26/18 08:26 Dose: 1 tab Polyethylene Glycol/Electrolytes (Miralax*) 17 gm PO DAILY PRN PRN Reason: CONSTIPATION Spironolactone (Aldactone Tab*) 25 mg PO DAILY [facility] Last Admin: 11/26/18 08:26 Dose: 25 mg Tamsulosin HCl (Flomax Cap*) 0.4 mg PO DAILY [facility] Last Admin: 11/26/18 08:27 Dose: 0.4 mg Vital Signs - 8 hr 11/26/18 11/26/18 11/26/18 07:00 08:00 10:56 Temperature 98.0 F 97.3 F Pulse Rate 53 57 Respiratory 18 18 18 Rate Blood Pressure 152/64 123/53 (mmHg) O2 Sat by Pulse 98 98 Oximetry Oxygen Devices in Use Now: None Appearance: Alert, partly up in bed. Neutral affect. Looks comfortable. Eyes: No Scleral Icterus Cardiovascular: No Edema, - - 2/6 systolic murmur across precordium Extremities: No Edema, No Clubbing, Cyanosis Skin: No Rash or Ulcers, No Nodules or Sclerosis Neurological: Alert and Oriented x 3, NL Sensation - Some memory deficit Result Diagrams: 11/23/18 04:30 11/23/18 04:30 Microbiology and Other Data: Microbiology 11/23/18 03:40 Urine Urine Culture - Final No Growth (<1,000 CFU/mL) 11/22/18 01:52 Urine Urine Culture - Final Escherichia Coli Klebsiella Pneumoniae 11/22/18 02:05 Blood Venous Aerobic Blood Culture - Final Escherichia Coli 11/22/18 02:05 Blood Venous Anaerobic Blood Culture - Preliminary No Growth Day 2 11/22/18 02:05 Blood Venous Aerobic Blood Culture - Preliminary No Growth Day 2 11/22/18 02:05 Blood Venous Anaerobic Blood Culture - Final Escherichia Coli Diagnostic Imaging: CXR: Sternotomy suture's noted. Otherwise no pulmonary infiltrate or congestion noted. Official radiology read pending. CT Brain IMPRESSION: 1. Right frontal approach CLINICAL SUPPORT ASSOCIATE shunt terminating in the frontal horn of the left lateral ventricle. Minimal interval decreased ventricular size. 2. Mild to moderate parechymal volume loss with microvascular white matter disease. 3. Ill-defined hypodensities in the bilateral basal ganglia which appear more prominent than prior study of 11/02/2018 which may be due to microvascular white matter disease versus progression of ischemic brain injury. 3. Encephalomalacia in the right frontal lobe along the CLINICAL SUPPORT ASSOCIATE shunt tract. 4. 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 Assess/Plan/Problems-Billing Assessment: Mr Saavedra is a 73 yo M with PMH of NPH s/p CLINICAL SUPPORT ASSOCIATE shunt 11/02/18, BPH, HTN, PVD, HLD, CAD s/p CABG, aortic insufficiency s/p porcine AVR, urinary retention requiring Rehman (failed 2 trials of spontaneous void); presented to ED with c/o SCHWARTZ, found to have fever 102.6 and Ecoli & Klebsiella UTI. - Patient Problems (1) UTI (urinary tract infection) Current Visit: Yes Status: Acute Priority: High Comment: - Rehman catheter related, present on admission, changed 11/25. - Continue Ceftriaxone, had 2 gm in ED and 1 gm vanco 11/22/18 04:14, 1 gm IV daily since then - Blood culture shows E.coli in 2 bottles, sens pending as of 11/23/18. - Urine culture E. coli and Kleb, resistant to ampicillin, macrobid(kleb) Discussed with Dr. Luque, who will see patient 11/27/18. Fup blood C&S x 2 11/25 , if neg will request midline catheter for outpt IV antibiotics. - Plan for Urology f/u as outpatient on his prior discharge. CBC, BMP, CRP ordered for 11/27. (2) NPH (normal pressure hydrocephalus) Current Visit: Yes Status: Chronic Priority: Low Code(s): G91.2 - ( IDIOPATHIC) NORMAL PRESSURE HYDROCEPHALUS SNOMED Code(s): 50236485 Comment: - S/p CLINICAL SUPPORT ASSOCIATE Shunt 11/02/18. - Has remained headachefree. - Dr Miller consult appreciated. Pt has office appt in November. (3) HTN (hypertension) Current Visit: Yes Status: Acute Code(s): I10 - ESSENTIAL (PRIMARY) HYPERTENSION SNOMED Code(s): 29771062 Comment: - Controlled - continue metoprolol 25 mg bid, spironolactone 25mg, lisinopril 10mg (4) BPH (benign prostatic hyperplasia) Current Visit: No Status: Acute Code(s): N40.0 - BENIGN PROSTATIC HYPERPLASIA WITHOUT LOWER URINRY TRACT SYMP SNOMED Code(s): 903346492 Comment: Continue finasteride and tamsulosin. Consider voiding trial in about 10 days. Status and Disposition: Inpatient.will need SNF (from [facility])
[2018-11-27] MEDS: cefTRIAXone(*) 1 GM in NS 0.9% 50 ML* 50 ML IVPB SCH (03:38)
[2018-11-27 06:42] LABS: ABS Basophils 0.1 10^3/ul (0-0.2); ABS Eosinophils 0.5 10^3/ul (0-0.6); ABS Lymphocytes 1.4 10^3/ul (1.0-4.8); ABS Monocytes 0.6 10^3/ul (0-0.8); ABS Neutrophils 6.3 10^3/ul (1.5-7.7); Eosinophil % 6.2 %; Hematocrit 33 % (42-52); Hemoglobin 11.6 g/dL (14.0-18.0); Lymphocyte % 16.2 %; Mean Corpuscular HGB Conc 36 g/dL (31-36); Mean Corpuscular Hemoglobin 30 pg (27-31); Mean Corpuscular Volume 85 fL (80-94); Mean Platelet Volume 6.4 fL (7.4-10.4); Nucleated Red Blood Cells % 0.1; Platelet Count 288 10^3/uL (150-450); Red Blood Count 3.82 10^6 /uL (4.18-5.48); Red Cell Distribution Width 14 % (10-15); White Blood Count 8.9 10^3/uL (3.5-10.8)
[2018-11-27 07:02] LABS: C Reactive Protein 26.34 mg/L (<8.01); Calcium 9.2 mg/dL (8.6-10.3); EGFR African American 102.4 (>60); EGFR Non-African American 84.7 (>60)
[2018-11-27] MEDS: Tamsulosin CAP* 0.4 MG PO SCH (09:57)
[2018-11-27] MEDS: Cyanocobalamin TAB* 500 MCG PO SCH (09:57)
[2018-11-27] MEDS: Cholecalciferol TAB* 1000 UNITS PO SCH (09:57)
[2018-11-27] MEDS: Citalopram TAB* 20 MG PO SCH (09:57)
[2018-11-27] MEDS: Finasteride TAB* 5 MG PO SCH (09:57)
[2018-11-27] MEDS: Lisinopril TAB* 10 MG PO SCH (09:57)
[2018-11-27] MEDS: Spironolactone TAB* 25 MG PO SCH (09:58)
[2018-11-27] MEDS: Multivitamins/Minerals TAB PO SCH (09:58)
[2018-11-27] MEDS: Heparin VIAL(*) 5000 UNITS/ML VIAL (FIVE THOUSAND) SUBCUT SCH ×2 (09:58→21:50)
[2018-11-27] MEDS: Metoprolol Succinate XL TAB* 25 MG PO SCH ×2 (09:59→21:51)
[2018-11-27] MEDS: Aspirin EC TAB* 81 MG TAB.EC PO SCH (09:59)
--- NOTE | 2018-11-27 14:13 | CONS ---
CONSULTATION REPORT: DATE OF CONSULT: 11/27/18 PRIMARY CARE PROVIDER: [facility]. PROVIDER REQUESTING CONSULTATION: Dr. Semaj Payne. PROVIDER: Priscilla Salinas NP. ATTENDING PHYSICIAN: Dr. Clovis Luque * (dictated by Priscilla Salinas NP). REASON FOR CONSULTATION: E. coli bacteremia. IMPRESSION: 1. Escherichia coli bacteremia in the setting of a urinary tract infection. The patient had a positive urinalysis on admission with 2+ blood, nitrite positive, wbc's 3+, rbc's 3+, 3+ leukocyte esterase, and the urine culture grew Escherichia coli. He has 2/4 of his initial blood culture bottles to have Escherichia coli and has been treated with ceftriaxone while in the hospital. He denies any urinary symptoms. According to notes from nursing staff in the EMR, he has a history of urinary retention according to his daughter. He has not had any renal or bladder imaging. His initial leukocytosis has resolved. He has been afebrile since shortly after his admission on 11/22/18. 2. Dementia. 3. Normal pressure hydrocephalus, status post MICROBIOLOGICAL LABORATORY TECHNICIAN shunt placement. The patient has been seen by Neurosurgery due to complaints of a headache on admission. His headache has resolved. Neurosurgery recommend followup imaging in one month. No concerns for MICROBIOLOGICAL LABORATORY TECHNICIAN shunt infection from their standpoint at this time. 4. Status post bovine aortic valve replacement. PLAN: Recommend continuing ceftriaxone for a total of 7 days. The patient has received 5 days of ceftriaxone as of today. At discharge, he can be transitioned to Augmentin for 2 more weeks. Additionally, I recommend obtaining bladder and renal ultrasound to rule out the possibility of renal calculi and hydronephrosis as being the cause of his UTI. HISTORY OF PRESENT ILLNESS: Mr. Saavedra is a 73-year-old male with past medical history significant for coronary artery disease, hypertension, CVA, dementia, NPH, hyperlipidemia, arthritis, and BPH, who presented to the emergency room on 11/22/18 due to a headache. Approximately 3 weeks prior to his presentation, he underwent a MICROBIOLOGICAL LABORATORY TECHNICIAN shunt for NPH. According to the History and Physical, the patient was complaining of headache, nausea, vomiting, and a cough. The patient states that he was just not feeling well for about a week and so he came to the emergency room for evaluation. While in the emergency room, he was noted to be febrile with a temperature of 102.1, also was noted to have an abnormal urinalysis and was admitted by the hospitalist service for sepsis secondary to the urinary tract infection. He had a chest x-ray showing no evidence of acute intrathoracic disease. He has been afebrile since wood gang sawyer on 11/22/18. His initial leukocytosis of 15.7 has resolved. While hospitalized, he has been on ceftriaxone. He also received vancomycin in the emergency room. While in the hospital, the patient's initial urine culture grew E. coli and Klebsiella pneumoniae. His blood cultures obtained at the time of admission were 2/4 bottles positive for E. coli. He had a repeat urinalysis 11/23/18 showing no growth, had repeat blood cultures on 11/25/18 showing no growth, and another urinalysis on 11/25/18 with no growth. The patient denies fevers, chills , joint pain, muscle pain, rash, diarrhea, urinary symptoms such as urgency, frequency, dysuria. He denies any recent travel. He denies constipation. No complaints of headaches today. PAST MEDICAL HISTORY: 1. Coronary artery disease. 2. Hypertension. 3. Cerebrovascular accident. 4. Dementia. 5. Normal pressure hydrocephalus. 6. Hyperlipidemia. 7. Arthritis. 8. Benign prostate hypertrophy. PAST SURGICAL HISTORY: 1. Status post coronary artery bypass graft. 2. Status post bovine aortic valve replacement. 3. Status post MICROBIOLOGICAL LABORATORY TECHNICIAN shunt insertion. 4. Status post cholecystectomy. 5. Status post cataract extractions. MEDICATIONS: Home medications include: 1. Finasteride 5 mg by mouth daily. 2. Vitamin B12 1000 mcg by mouth daily. 3. Celexa 20 mg by mouth daily. 4. Vitamin D3 5000 units by mouth daily. 5. Aspirin 81 mg by mouth daily. 6. Flomax 0.4 mg by mouth daily. 7. Spironolactone 25 mg by mouth daily. 8. MiraLAX 17 g by mouth daily as needed for constipation. 9. Multivitamin 1 tablet by mouth daily. 10. Metoprolol succinate 25 mg by mouth twice daily. 11. Lisinopril 10 mg by mouth daily. 12. [place] 5/325 one tablet by mouth every 4 hours as needed for pain. Hospital medications: 1. Acetaminophen 650 mg by mouth every 6 hours as needed for fever. 2. Aspirin 81 mg by mouth daily. 3. Ceftriaxone 1 g IV q.24 hours. 4. Vitamin D 5000 units my mouth daily. 5. Celexa 20 mg by mouth daily. 6. Vitamin B12 1000 mcg by mouth daily. 7. Finasteride 5 mg by mouth daily. 8. Heparin sodium 5000 units subcutaneous every 12 hours. 9. [place] 5/325 one tablet by mouth every 4 hours as needed for pain. 10. Lisinopril 10 mg by mouth daily. 11. Metoprolol succinate 25 mg by mouth twice daily. 12. Multivitamin 1 tablet by mouth daily. 13. MiraLAX 17 g by mouth daily as needed for constipation. 14. Spironolactone 25 mg by mouth daily. 15. Tamsulosin 0.4 mg by mouth daily. ALLERGIES: No known drug allergies. FAMILY HISTORY: The patient denies any family history of recurrent resistant infection such as tuberculosis. Denies family history of coronary artery disease or diabetes. Mother with a history of throat cancer and father passed at age 92. SOCIAL HISTORY: Denies alcohol, tobacco, or recreational drug use. REVIEW OF SYSTEMS: I performed a 10-point review of systems. All the pertinent positives and negatives are mentioned in the history of present illness. The remaining review of systems are negative. PHYSICAL EXAMINATION: Vital Signs: Temperature 97.5, heart rate 65, respiratory rate 16, O2 sat 100% on room air, blood pressure 143/74. General Appearance: Alert, appears to be in no acute distress. Head: Normocephalic, atraumatic. ENT: Pupils are equal and reactive to light. Extraocular movements are intact. Moist mucous membranes. Neck: Supple. No lymphadenopathy. Neurological: Cranial nerves II through XII are grossly intact. He is alert and oriented to person and place. Cardiovascular: Regular rate and rhythm. S1, S2 heard. No murmurs, rubs, or gallops. Respiratory: No accessory muscle use and the lungs are clear to auscultation bilateral. Abdomen: Bowel sounds present. Abdomen is soft, nontender, nondistended. Extremities: No lower extremity edema. Musculoskeletal: No clubbing or cyanosis noted. The patient exhibits good strength in all extremities. No crepitus and full range of motion of all joints. Psychological : Calm and cooperative. Skin: No rashes or abnormalities seen. He does have a healing incision to the right side of his scalp. No signs of infection. No erythema. DIAGNOSTIC STUDIES/LABORATORY DATA: Sodium 136, potassium 4.0, chloride 104, CO2 27, BUN 15, creatinine 0.88, glucose 95. White blood cell count 8.9, hemoglobin 11.6, hematocrit 33, platelet count 288. Initial urinalysis showed 2+ protein, 2+ blood, nitrite positive, leukocyte esterase 3+, wbc's 3+, rbc's 3+, bacteria 1+, hyaline casts present, yeast present. Urine culture from 11/22/18 with E. coli, Klebsiella pneumoniae. Initial blood cultures on 11/22/18 with 2/4 bottles positive for E. coli. Please see impression and recommendations outlined above. Thank you for asking us to see Mr. Saavedra in consultation. The case has been discussed with my attending, Dr. Clovis Luque, who agrees with the plan of care. Reviewed by LOBO POWELL 11/28/18 0825 [id number]/[facility] #: [id number] SATHISH
--- NOTE | 2018-11-27 18:48 | PN ---
Subjective Date of Service: 11/27/18 Interval History: Resting in chair on assessment. Reports he is "bored" and wants to go home. Denies headache, fever, chills, cp, sob. Family History: Unchanged from Admission Social History: Unchanged from Admission Past Medical History: Unchanged from Admission Objective Active Medications: Acetaminophen (Tylenol Tab*) 650 mg PO Q6H PRN PRN Reason: FEVER Last Admin: 11/22/18 17:58 Dose: 650 mg Hydrocodone Bitart/Acetaminophen ([place] 5-325 Tab*) 1 tab PO Q4H PRN PRN Reason: marked pain Last Admin: 11/25/18 20:56 Dose: 1 tab Aspirin (Aspirin Ec Tab*) 81 mg PO DAILY [facility] Last Admin: 11/27/18 09:59 Dose: 81 mg Cholecalciferol (Vitamin D Tab*) 5,000 units PO DAILY [facility] Last Admin: 11/27/18 09:57 Dose: 5,000 units Citalopram Hydrobromide (Celexa Tab*) 20 mg PO DAILY [facility] Last Admin: 11/27/18 09:57 Dose: 20 mg Cyanocobalamin (Vitamin B12 Tab*) 1,000 mcg PO DAILY [facility] Last Admin: 11/27/18 09:57 Dose: 1,000 mcg Finasteride (Proscar Tab*) 5 mg PO DAILY [facility] Last Admin: 11/27/18 09:57 Dose: 5 mg Heparin Sodium (Porcine) (Heparin Vial(*)) 5,000 units SUBCUT Q12HR [facility] Last Admin: 11/27/18 09:58 Dose: 5,000 units Ceftriaxone Sodium 1 gm/ (Sodium Chloride) 50 mls @ 200 mls/hr IVPB Q24H [facility] Last Admin: 11/27/18 03:38 Dose: 200 mls/hr Lisinopril (Prinivil Tab*) 10 mg PO DAILY [facility] Last Admin: 11/27/18 09:57 Dose: 10 mg Metoprolol Succinate (Toprol Xl Tab*) 25 mg PO BID [facility] Last Admin: 11/27/18 09:59 Dose: Not Given Multivitamins/Minerals (Theragran/Minerals Tab*) 1 tab PO DAILY [facility] Last Admin: 11/27/18 09:58 Dose: 1 tab Polyethylene Glycol/Electrolytes (Miralax*) 17 gm PO DAILY PRN PRN Reason: CONSTIPATION Spironolactone (Aldactone Tab*) 25 mg PO DAILY [facility] Last Admin: 11/27/18 09:58 Dose: 25 mg Tamsulosin HCl (Flomax Cap*) 0.4 mg PO DAILY [facility] Last Admin: 11/27/18 09:57 Dose: 0.4 mg Vital Signs - 8 hr 11/27/18 11/27/18 11:00 15:00 Temperature 98.1 F 98.4 F Pulse Rate 67 91 Respiratory 18 20 Rate Blood Pressure 118/67 167/95 (mmHg) O2 Sat by Pulse 99 95 Oximetry Oxygen Devices in Use Now: None Appearance: Comfortable, NAD Eyes: No Scleral Icterus Ears/Nose/Mouth/Throat: Clear Oropharnyx, Mucous Membranes Moist Neck: NL Appearance and Movements; NL JVP Respiratory: Symmetrical Chest Expansion and Respiratory Effort, Clear to Auscultation Cardiovascular: NL Sounds; No Murmurs; No JVD, No Edema Abdominal: NL Sounds; No Tenderness; No Distention Lymphatic: No Cervical Adenopathy Extremities: No Edema Skin: No Rash or Ulcers Neurological: Alert and Oriented x 3 Nutrition: Taking PO's Result Diagrams: 11/27/18 06:26 11/27/18 06:26 Additional Lab and Data: Laboratory Results - last 24 hr 11/27/18 11/27/18 06:26 06:26 WBC 8.9 RBC 3.82 L Hgb 11.6 L Hct 33 L MCV 85 MCH 30 MCHC 36 RDW 14 Plt Count 288 MPV 6.4 L Neut % (Auto) 70.3 Lymph % (Auto) 16.2 [place] % (Auto) 6.6 Eos % (Auto) 6.2 Baso % (Auto) 0.7 Absolute Neuts (auto) 6.3 Absolute Lymphs (auto) 1.4 Absolute Monos (auto) 0.6 Absolute Eos (auto) 0.5 Absolute Basos (auto) 0.1 Absolute Nucleated RBC 0.0 Nucleated RBC % 0.1 Sodium 136 Potassium 4.0 Chloride 104 Carbon Dioxide 27 Anion Gap 5 BUN 15 Creatinine 0.88 Est GFR ( Amer) 102.4 Est GFR (Non-Af Amer) 84.7 BUN/Creatinine Ratio 17.0 Glucose 95 Calcium 9.2 C-Reactive Protein 26.34 H Microbiology and Other Data: Microbiology 11/25/18 16:30 Aerobic Blood Culture - Preliminary Blood Venous No Growth Day 2 Anaerobic Blood Culture - Preliminary No Growth Day 2 11/25/18 16:34 Aerobic Blood Culture - Preliminary Blood Venous No Growth Day 2 Anaerobic Blood Culture - Preliminary No Growth Day 2 11/25/18 21:50 Urine Culture - Final Urine No Growth (<1,000 CFU/mL) 11/22/18 02:05 Aerobic Blood Culture - Final Blood Venous No Growth Day 5 Anaerobic Blood Culture - Final Escherichia Coli 11/22/18 02:05 Aerobic Blood Culture - Final Blood Venous Escherichia Coli Anaerobic Blood Culture - Final No Growth Day 5 11/23/18 03:40 Urine Culture - Final Urine No Growth (<1,000 CFU/mL) 11/22/18 01:52 Urine Culture - Final Urine Escherichia Coli Klebsiella Pneumoniae Diagnostic Imaging: CXR: Sternotomy suture's noted. Otherwise no pulmonary infiltrate or congestion noted. Official radiology read pending. CT Brain IMPRESSION: 1. Right frontal approach STEEL INSPECTOR shunt terminating in the frontal horn of the left lateral ventricle. Minimal interval decreased ventricular size. 2. Mild to moderate parechymal volume loss with microvascular white matter disease. 3. Ill-defined hypodensities in the bilateral basal ganglia which appear more prominent than prior study of 11/02/2018 which may be due to microvascular white matter disease versus progression of ischemic brain injury. 3. Encephalomalacia in the right frontal lobe along the STEEL INSPECTOR shunt tract. 4. 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 Assess/Plan/Problems-Billing Assessment: Mr Saavedra is a 73 yo M with PMH of NPH s/p STEEL INSPECTOR shunt 11/02/18, BPH, HTN, PVD, HLD, CAD s/p CABG, aortic insufficiency s/p porcine AVR, urinary retention requiring Rehman (failed 2 trials of spontaneous void); presented to ED with c/o SCHWARTZ, found to have fever 102.6 and Ecoli & Klebsiella UTI. - Patient Problems (1) Sepsis Comment: - Resolved - Urine grew Escherichia Coli and Klebsiella Pneumoniae - Initial BC grew E Coli. Repeat blood cultures no growth so far - Met sepsis criteria on admission, with leukocytosis, tachycardia, and fever. (2) UTI (urinary tract infection) Comment: - Rehman catheter related, present on admission, changed 11/25. - Continue Ceftriaxone, had 2 gm in ED and 1 gm vanco 11/22/18 04:14, 1 gm IV daily since then - Urine culture E. coli and Kleb - ID consulting - Plan for Urology f/u as outpatient on his prior discharge. (3) HTN (hypertension) Comment: - Continue metoprolol 25 mg bid, spironolactone 25mg, lisinopril 10mg (4) NPH (normal pressure hydrocephalus) Comment: - S/p STEEL INSPECTOR Shunt 11/02/18. - Has remained headachefree. - Dr Miller consult appreciated. Pt has office appt in November. (5) BPH (benign prostatic hyperplasia) Comment: - Continue finasteride and tamsulosin. - Consider voiding trial in about 10 days. (6) DVT prophylaxis Comment: - SQ heparin. Status and Disposition: Inpatient.will need SNF (from [facility]) Attending: Justa Burroughs
[2018-11-28] MEDS: cefTRIAXone(*) 1 GM in NS 0.9% 50 ML* 50 ML IVPB SCH (03:54)
[2018-11-28] MEDS: Citalopram TAB* 20 MG PO SCH (09:06)
[2018-11-28] MEDS: Spironolactone TAB* 25 MG PO SCH (09:07)
[2018-11-28] MEDS: Multivitamins/Minerals TAB PO SCH (09:07)
[2018-11-28] MEDS: Lisinopril TAB* 10 MG PO SCH (09:07)
[2018-11-28] MEDS: Aspirin EC TAB* 81 MG TAB.EC PO SCH (09:07)
[2018-11-28] MEDS: Tamsulosin CAP* 0.4 MG PO SCH (09:07)
[2018-11-28] MEDS: Finasteride TAB* 5 MG PO SCH (09:07)
[2018-11-28] MEDS: Metoprolol Succinate XL TAB* 25 MG PO SCH ×2 (09:07→22:01)
[2018-11-28] MEDS: Cholecalciferol TAB* 1000 UNITS PO SCH (09:07)
[2018-11-28] MEDS: Heparin VIAL(*) 5000 UNITS/ML VIAL (FIVE THOUSAND) SUBCUT SCH ×2 (09:08→22:06)
[2018-11-28] MEDS: Cyanocobalamin TAB* 500 MCG PO SCH (09:08)
--- NOTE | 2018-11-28 15:38 | PN ---
Subjective Date of Service: 11/28/18 Interval History: Resting in recliner on assessment. Patient reports he is "bored" and "frustrated " as he would like to go back to [facility]. Discussed plan of discharge tomorrow morning after dose of IV antibiotic. Denies headache, dizziness, visual changes, fever, chills. Family History: Unchanged from Admission Social History: Unchanged from Admission Past Medical History: Unchanged from Admission Objective Active Medications: Acetaminophen (Tylenol Tab*) 650 mg PO Q6H PRN PRN Reason: FEVER Last Admin: 11/22/18 17:58 Dose: 650 mg Hydrocodone Bitart/Acetaminophen ([place] 5-325 Tab*) 1 tab PO Q4H PRN PRN Reason: marked pain Last Admin: 11/25/18 20:56 Dose: 1 tab Aspirin (Aspirin Ec Tab*) 81 mg PO DAILY [facility] Last Admin: 11/28/18 09:07 Dose: 81 mg Cholecalciferol (Vitamin D Tab*) 5,000 units PO DAILY [facility] Last Admin: 11/28/18 09:07 Dose: 5,000 units Citalopram Hydrobromide (Celexa Tab*) 20 mg PO DAILY [facility] Last Admin: 11/28/18 09:06 Dose: 20 mg Cyanocobalamin (Vitamin B12 Tab*) 1,000 mcg PO DAILY [facility] Last Admin: 11/28/18 09:08 Dose: 1,000 mcg Finasteride (Proscar Tab*) 5 mg PO DAILY [facility] Last Admin: 11/28/18 09:07 Dose: 5 mg Heparin Sodium (Porcine) (Heparin Vial(*)) 5,000 units SUBCUT Q12HR [facility] Last Admin: 11/28/18 09:08 Dose: 5,000 units Ceftriaxone Sodium 1 gm/ (Sodium Chloride) 50 mls @ 200 mls/hr IVPB Q24H [facility] Last Admin: 11/28/18 03:54 Dose: 200 mls/hr Lisinopril (Prinivil Tab*) 10 mg PO DAILY [facility] Last Admin: 11/28/18 09:07 Dose: 10 mg Metoprolol Succinate (Toprol Xl Tab*) 25 mg PO BID [facility] Last Admin: 11/28/18 09:07 Dose: 25 mg Multivitamins/Minerals (Theragran/Minerals Tab*) 1 tab PO DAILY [facility] Last Admin: 11/28/18 09:07 Dose: 1 tab Polyethylene Glycol/Electrolytes (Miralax*) 17 gm PO DAILY PRN PRN Reason: CONSTIPATION Spironolactone (Aldactone Tab*) 25 mg PO DAILY [facility] Last Admin: 11/28/18 09:07 Dose: 25 mg Tamsulosin HCl (Flomax Cap*) 0.4 mg PO DAILY [facility] Last Admin: 11/28/18 09:07 Dose: 0.4 mg Vital Signs - 8 hr 11/28/18 11/28/18 08:00 12:12 Temperature 98.2 F 98.0 F Pulse Rate 54 65 Respiratory 18 16 Rate Blood Pressure 122/57 99/55 (mmHg) O2 Sat by Pulse 98 99 Oximetry Oxygen Devices in Use Now: None Appearance: Comfortable, NAD Eyes: No Scleral Icterus, PERRLA Ears/Nose/Mouth/Throat: Clear Oropharnyx, Mucous Membranes Moist Neck: NL Appearance and Movements; NL JVP Respiratory: Symmetrical Chest Expansion and Respiratory Effort, Clear to Auscultation Cardiovascular: NL Sounds; No Murmurs; No JVD, RRR, No Edema Abdominal: NL Sounds; No Tenderness; No Distention Lymphatic: No Cervical Adenopathy Extremities: No Edema Skin: No Rash or Ulcers Neurological: Alert and Oriented x 3, NL Muscle Strength and Tone Nutrition: Taking PO's Result Diagrams: 11/27/18 06:26 11/27/18 06:26 Additional Lab and Data: . Microbiology and Other Data: Microbiology 11/25/18 16:30 Blood Venous Aerobic Blood Culture - Preliminary No Growth Day 2 11/25/18 16:30 Blood Venous Anaerobic Blood Culture - Preliminary No Growth Day 2 11/25/18 16:34 Blood Venous Aerobic Blood Culture - Preliminary No Growth Day 2 11/25/18 16:34 Blood Venous Anaerobic Blood Culture - Preliminary No Growth Day 2 11/25/18 21:50 Urine Urine Culture - Final No Growth (<1,000 CFU/mL) 11/22/18 02:05 Blood Venous Aerobic Blood Culture - Final No Growth Day 5 11/22/18 02:05 Blood Venous Anaerobic Blood Culture - Final Escherichia Coli 11/22/18 02:05 Blood Venous Aerobic Blood Culture - Final Escherichia Coli 11/22/18 02:05 Blood Venous Anaerobic Blood Culture - Final No Growth Day 5 11/23/18 03:40 Urine Urine Culture - Final No Growth (<1,000 CFU/mL) 11/22/18 01:52 Urine Urine Culture - Final Escherichia Coli Klebsiella Pneumoniae Diagnostic Imaging: CXR: Sternotomy suture's noted. Otherwise no pulmonary infiltrate or congestion noted. Official radiology read pending. CT Brain IMPRESSION: 1. Right frontal approach SQL DEVELOPER DBA shunt terminating in the frontal horn of the left lateral ventricle. Minimal interval decreased ventricular size. 2. Mild to moderate parechymal volume loss with microvascular white matter disease. 3. Ill-defined hypodensities in the bilateral basal ganglia which appear more prominent than prior study of 11/02/2018 which may be due to microvascular white matter disease versus progression of ischemic brain injury. 3. Encephalomalacia in the right frontal lobe along the SQL DEVELOPER DBA shunt tract. 4. 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 Assess/Plan/Problems-Billing Assessment: Mr Saavedra is a 73 yo M with PMH of NPH s/p SQL DEVELOPER DBA shunt 11/02/18, BPH, HTN, PVD, HLD, CAD s/p CABG, aortic insufficiency s/p porcine AVR, urinary retention requiring Rehman (failed 2 trials of spontaneous void); presented to ED with c/o SCHWARTZ, found to have fever 102.6 and Ecoli & Klebsiella UTI. - Patient Problems (1) Sepsis Comment: - Vital signs stable - Will have completed recommended course of IV antibiotics tomorrow morning then will transition to PO for discharge - Resolved - Urine grew Escherichia Coli and Klebsiella Pneumoniae - Initial BC grew E Coli. Repeat blood cultures no growth so far - Met sepsis criteria on admission, with leukocytosis, tachycardia, and fever. (2) UTI (urinary tract infection) Comment: - Rehman catheter related, present on admission, changed 11/25. - Continue Ceftriaxone, had 2 gm in ED and 1 gm vanco 11/22/18 04:14, 1 gm IV daily since then - Urine culture E. coli and Kleb - ID recommends 7 days Rocephin then transition to Augmentin for 2 weeks - Plan for Urology f/u as outpatient (3) HTN (hypertension) Comment: - Continue metoprolol 25 mg bid, spironolactone 25mg, lisinopril 10mg (4) NPH (normal pressure hydrocephalus) Comment: - S/p SQL DEVELOPER DBA Shunt 11/02/18. - Has remained headachefree. - Dr Dimopoulos consult appreciated. Pt has office appt in November. (5) BPH (benign prostatic hyperplasia) Comment: - Continue finasteride and tamsulosin. - Consider voiding trial in about 10 days. This can be completed at [facility] once patient is more ambulatory (6) DVT prophylaxis Comment: - SQ heparin. Status and Disposition: Inpatient.will need SNF (from [facility]) Attending: Justa Burroughs
[2018-11-29] MEDS: cefTRIAXone(*) 1 GM in NS 0.9% 50 ML* 50 ML IVPB SCH (04:25)
[2018-11-29] MEDS: Heparin VIAL(*) 5000 UNITS/ML VIAL (FIVE THOUSAND) SUBCUT SCH (08:04)
[2018-11-29] MEDS: Lisinopril TAB* 10 MG PO SCH (08:06)
[2018-11-29] MEDS: Spironolactone TAB* 25 MG PO SCH (08:06)
[2018-11-29] MEDS: Metoprolol Succinate XL TAB* 25 MG PO SCH (08:06)
[2018-11-29] MEDS: Finasteride TAB* 5 MG PO SCH (08:06)
[2018-11-29] MEDS: Aspirin EC TAB* 81 MG TAB.EC PO SCH (08:06)
[2018-11-29] MEDS: Multivitamins/Minerals TAB PO SCH (08:06)
[2018-11-29] MEDS: Cyanocobalamin TAB* 500 MCG PO SCH (08:06)
[2018-11-29] MEDS: Citalopram TAB* 20 MG PO SCH (08:06)
[2018-11-29] MEDS: Tamsulosin CAP* 0.4 MG PO SCH (08:06)
[2018-11-29] MEDS: Cholecalciferol TAB* 1000 UNITS PO SCH (08:06)
[2018-11-29 11:18] VITALS: BP 104/49
--- NOTE | 2018-11-29 11:22 | DS ---
CC: Providers, [facility] * DISCHARGE SUMMARY: DATE OF ADMISSION: 11/22/18 DATE OF DISCHARGE: 11/29/18 PRIMARY CARE PROVIDER: Providers at [facility]. ATTENDING PHYSICIAN: Dr. Burroughs * (dictated by Katty Camacho NP). PRIMARY DIAGNOSES: 1. Sepsis. 2. Urinary tract infection. 3. Normal pressure hydrocephalus. SECONDARY DIAGNOSES: 1. Coronary artery disease, status post coronary artery bypass graft. 2. Aortic valve replacement. 3. Hypertension. 4. Cerebrovascular accident. 5. Dementia. 6. Left rotator cuff tear. CONSULTATIONS WHILE IN THE HOSPITAL: 1. Neurosurgery, Dr. Miller. 2. Infectious disease, Dr. Clovis Luque. STUDIES WHILE IN THE HOSPITAL: 1. Chest x-ray: Impression: No evidence of acute intrathoracic disease. 2. Brain CT: Impression: Right frontal approach [employer] shunt terminating in the frontal horn of the left lateral ventricle. Minimal interval decreased ventricle size. Unzl-ev-gnogtnwn parenchymal volume loss with microvascular white matter disease. Ill-defined hypodensities in bilateral basal ganglia which appear more prominent than on prior study on 11/02/18, which may be due to microvascular white matter disease versus progression of ischemic brain injury. Encephalomalacia in the right frontal lobe along the [employer] shunt track. Chronic lacunar infarcts in bilateral thalami. 3. Abdomen/bladder ultrasound: Impression: The urinary bladder has collapsed around the Rehman. No debris identified within the bladder. Mild wall thickening, 0.7 cm, could be related to the collapsed state. Kidneys are normal in shape and echogenicity. DISCHARGE MEDICATIONS: Continued Home Medications: 1. Proscar 5 mg p.o. daily. 2. Vitamin B12 at 1000 mcg p.o. daily. 3. Celexa 20 mg p.o. daily. 4. Vitamin D3 at 5000 units p.o. daily. 5. Aspirin 81 mg p.o. daily. 6. Flomax 0.4 mg p.o. daily. 7. Aldactone 25 mg p.o. daily. 8. MiraLAX 17 g p.o. daily p.r.n. 9. Multivitamin 1 tab p.o. daily. 10. Metoprolol succinate 25 mg p.o. b.i.d. 11. Lisinopril 10 mg p.o. daily. 12. Hydrocodone/acetaminophen 1 tab p.o. q.4 hours p.r.n., MDD 4. [place] Medication: Augmentin 500 mg b.i.d. x2 weeks. Changed Home Medications: No home medications changed. Discontinued Home Medications: No home medications discontinued. HISTORY OF PRESENT ILLNESS/HOSPITAL COURSE: Mr. Saavedra is a 73-year-old male with a past medical history significant for dementia, CAD, hypertension, hyperlipidemia, BPH, normal pressure hydrocephalus, and strokes who presented to the emergency room from [facility] on 11/22/18 due to headache, nausea, vomiting, and cough. Please see history and physical dictated by Dr. Burroughs for complete summary of the events leading up to the hospitalization, but in short in the emergency room the patient was noted to have a fever, abnormal UA, and was admitted to the medical floor due to sepsis from UTI. During this hospital stay, the patient has received IV ceftriaxone x7 days. Given his recent [employer] shunt placement and history of aortic valve replacement, we requested a consultation from Dr. Clovis Luque and Priscilla Duarte from infectious disease. They recommended a total of 7 days of ceftriaxone, which the patient has completed. In addition, they recommend the patient be transitioned to Augmentin 500 mg p.o. b.i.d. x2 weeks upon discharge. Additionally, they recommended obtaining a bladder renal ultrasound to rule out possible calculi, which was mentioned above and remarkable. During this hospital stay, the patient was also evaluated by Dr. Miller, given he had a [employer] shunt placed by this surgeon 3 weeks ago. Their recommendation includes repeating CT in 1 month, MRI of brain with and without contrast at some point which can be done as an outpatient and will be coordinated by this office. At this time, the patient will complete the MRI as an outpatient within [address] Miller' office will coordinate this. The patient should also follow up with Dr. Miller' office on his already scheduled appointment in November. It should also be mentioned that on admission, the patient did meet sepsis criteria as he had leukocytosis, tachycardia, fever and the source was the UTI. In addition, he had blood cultures that grew E. coli. The patient had repeat blood cultures which had no growth. The patient is stable for discharge to [facility] this morning. Vital Signs: Temp 97.8, HR 57, RR 22, O2 saturation 98% on room air, blood pressure 139/66. REVIEW OF SYSTEMS: The patient denies headache, dizziness, weakness, fever, chills, chest pain, shortness of breath, palpitations, nausea, or vomiting. A 14- point review of systems was completed and all were negative. PHYSICAL EXAMINATION: General: Mr. Saavedra is a 73-year-old male who is lying in bed. Appears to be in no acute distress. Appears stated age. HEENT: EOMs intact. PERRLA. His oral mucosa is moist without lesion. Posterior pharynx is clear. Neck: Neck is supple. No lymphadenopathy. Cardiac: S1 and S2 present. Regular rate and rhythm. No murmurs, rubs, or gallops. Respiratory: Lungs are clear to auscultation. No wheezes, rhonchi, or rubs. Good aeration. Abdomen: Soft and nontender. Bowel sounds normoactive. Extremities: No edema. No clubbing or cyanosis. Pedal pulses 2+ bilaterally. Musculoskeletal: No pain or deformities. Skin: The patient has a healed incision to the right upper scalp. The patient has a healed well- approximated incision to right abdomen. Remainder of the skin is grossly intact. Neuro: Neuro exam is grossly intact. No focal deficits or weakness. DIAGNOSTIC STUDIES/LABORATORY DATA: WBC 8.9, hemoglobin 11.6, hematocrit 33, platelets 288. BMP: Sodium 136, potassium 4.0, chloride 104, carbon dioxide 27 , BUN 15, creatinine 0.88, glucose 95. DISCHARGE PLAN/FOLLOWUP: 1. Sepsis: As mentioned above, the patient did meet sepsis criteria on admission given tachycardia, fever, leukocytosis, and source urinary tract infection. He also had bacteremia with blood cultures that grew E. coli. The patient was evaluated by Dr. Clovis Luque from infectious disease and has completed a 7-day course of ceftriaxone and will be discharged with 2 weeks of Augmentin. The patient did have repeat blood cultures which were negative. The patient's vital signs have been stable during this admission with last noted fever on his admission day of 11/22/18 and last noted tachycardia on admission day of 11/22/18. 2. Urinary tract infection. As mentioned above, the patient was diagnosed with a urinary tract infection, Rehman catheter related, on his admission. Once again, the patient was evaluated by infectious disease, completed a course of ceftriaxone, and will be discharged on Augmentin. The patient had a Rehman changed after 48 hours of antibiotics. The patient should follow up with outpatient urology upon discharge. I would recommend approximately 1 week. I would also recommend removing his Rehman and doing a void trial in approximately 3 to 5 days. 3. Normal pressure hydrocephalus: The patient was evaluated by Dr. Miller and he will have an outpatient MRI next week. The patient should follow up with Dr. Miller as an outpatient. 4. Hypertension: The patient's blood pressure has been well controlled. He should continue his metoprolol, spironolactone, lisinopril, and amlodipine. 5. BPH: The patient should continue his finasteride and tamsulosin. The patient should have a voiding trial in approximately 3 to 5 days. The patient should follow up with urology in the next 1 to 2 weeks as an outpatient. 6. Coronary artery disease, status post coronary artery bypass graft: The patient should continue his home medications of metoprolol, lisinopril, and Aldactone. 7. Hyperlipidemia: The patient is currently not on any medications for this. I will defer this to his primary care provider. 8. Followup: As mentioned above, the patient should follow up with Dr. Miller in 1 week. The patient should be seen by his primary care provider or a provider at [facility] in 1 to 3 days. The patient should follow up with urology in 1 to 2 weeks. 9. Education: The patient was educated on signs and symptoms of new or worsening condition and when to return to the emergency department. The patient stated understanding. This is a summarized report of a complex medical history and hospital stay. For further details, please see the entire medical record. TIME SPENT: Approximately 40 minutes were spent on this discharge, greater than half the time was spent [id number] with the patient discussing discharge plans and instructions. This plan has been discussed with my attending, Dr. Burroughs, who is in agreement with my plan of care. KATTY CAMACHO, ASHLEIGH [id number]/[facility] #: [id number] SATHISH
== END 2018-11-29 13:58 | DRG 698 ==
LOC: ED 01:17 → MED 03:59
PROVIDERS: ADMIT Internal Medicine; ATTEND Internal Medicine
DX: T83.511A Infection and inflammatory reaction due to indwelling urethral catheter, initial encounter (principal); A41.51 Sepsis due to Escherichia coli [E. coli]; G91.2 (Idiopathic) normal pressure hydrocephalus; N39.0 Urinary tract infection, site not specified; B96.1 Klebsiella pneumoniae [K. pneumoniae] as the cause of diseases classified elsewhere; B96.20 Unspecified Escherichia coli [E. coli] as the cause of diseases classified elsewhere; F03.90 Unspecified dementia, unspecified severity, without behavioral disturbance, psychotic disturbance, mood disturbance, and anxiety; I25.10 Atherosclerotic heart disease of native coronary artery without angina pectoris; I10 Essential (primary) hypertension; E78.5 Hyperlipidemia, unspecified; N40.1 Benign prostatic hyperplasia with lower urinary tract symptoms; M75.102 Unspecified rotator cuff tear or rupture of left shoulder, not specified as traumatic; N40.0 Benign prostatic hyperplasia without lower urinary tract symptoms; M19.90 Unspecified osteoarthritis, unspecified site; Z95.1 Presence of aortocoronary bypass graft; Z86.73 Personal history of transient ischemic attack (TIA), and cerebral infarction without residual deficits; Z79.82 Long term (current) use of aspirin; Z79.899 Other long term (current) drug therapy; Z95.3 Presence of xenogenic heart valve; Z80.0 Family history of malignant neoplasm of digestive organs
CPT/HCPCS: 36415; 70450; 71045; 76770; 80048; 80053; 81003; 81015; 83605; 84484; 85025; 85610; 85730; 86140; 87040; 87077; 87086; 87186; 87205; 99284; A9270-GY; G8978-GP-CK; G8979-GP-CI; J0696; J1644; J1885; J2270; J2405; J3370

== ENCOUNTER 2018-12-24 23:42 | Emergency (ER) | payer MEDICARE ==
--- NOTE | 2018-12-25 00:02 | ED ---
Head Injury - HPI Summary HPI Summary: 73 year old M patient brought to [facility] by EMS with a chief complaint of gash about 2 inches long at the head due to mechanical fall in assisted since 2353, today, 12/24/18, per triage. Per triage, no LOC and no blood thinners. Nurse reports he was walking to the bathroom when his feet and legs gave out and fell hurting his head. Patient reports to remember everything. Patient reports he has fallen before but not frequently. Patient has had a brain surgery due to too much pressure in the brain when a shunt was placed leaving scars on his right abdomen. Patient denies any other injuries. Symptoms aggravated by nothing. Symptoms alleviated by nothing. - History Of Current Complaint Stated Complaint: HEAD INJURY PER EMS Time Seen by Provider: 12/24/18 23:50 Hx Obtained From: Patient, Other: - nurse Mechanism Of Injury: Fall From A Standing Position Onset/Duration: Started Hours Ago, Still Present Aggravating Factor(s): Other: - nothing Alleviating Factor(s): Other: - nothing - Allergies/Home Medications Allergies/Adverse Reactions: Allergies Allergy/AdvReac Type Severity Reaction Status Date / Time No Known Allergies Allergy Verified 11/02/18 06:25 PMH/Surg Hx/FS Hx/Imm Hx Endocrine/Hematology History: Denies: Hx Diabetes Cardiovascular History: Reports: Hx Coronary Artery Disease, Hx Hypercholesterolemia, Hx Hypertension - MEDICATED, Hx Valvular Heart Disease - aortic insufficency, Other Cardiovascular Problems/Disorders - aortic valve replacement Denies: Hx Congestive Heart Failure, Hx Myocardial Infarction, Hx Pacemaker/ ICD Respiratory History: Denies: Hx Asthma, Hx Chronic Obstructive Pulmonary Disease (COPD), Other Respiratory Problems/Disorders GI History: Reports: Hx Gall Bladder Disease - gallbladder removed History: Denies: Hx Renal Disease Musculoskeletal History: Reports: Hx Arthritis, Hx Tendonitis - left shoulder, Other Musculoskeletal History - L rotator cuff tear, arthritis Sensory History: Reports: Hx Cataracts - marielos, Hx Contacts or Glasses - for reading only Denies: Hx Hearing Aid Opthamlomology History: Reports: Hx Cataracts - marielos, Hx Contacts or Glasses - for reading only Neurological History: Reports: Hx Transient Ischemic Attacks (TIA) - according to pt knowledge, Other Neuro Impairments/Disorders - HX HYDROCEPHALUS Psychiatric History: Reports: Hx Depression - on meds Denies: Hx Panic Disorder - Surgical History Surgery Procedure, Year, and Place: 09/30 CABG & aortic valve replaced - [facility]. Cholecystectomy - [facility] [place]. VENTRICULAR SHUNT RT SIDE 11/02/18 - [employer] - , PLACED AT [facility], [employer] Hx Anesthesia Reactions: No Infectious Disease History: Denies: Hx Shingles, Hx Tuberculosis, History Other Infectious Disease - Family History Known Family History: Positive: Cardiac Disease - Social History Alcohol Use: None Hx Substance Use: No Substance Use Type: Reports: None Smoking Status (MU): Unknown if Ever Smoked Review of Systems Negative: Fever Skin: Other - gash in head Neurological: Other - denies LOC All Other Systems Reviewed And Are Negative: Yes Physical Exam - Summary Physical Exam Summary: Appearance: Well-appearing, Well-nourished, lying in bed comfortably Skin: 5 cm laceration on vertex of the skull Eyes: sclera anicteric, no conjunctival pallor ENT: mucous membranes moist, pharynx appears normal Neck: Supple, nontender Respiratory: Clear to auscultation, no signs of respiratory distress Cardiovascular: Normal S1, S2. No murmurs. Normal distal pulses in tibial and radial bilaterally. Abdomen: Soft, nontender, normal active bowel sounds present Musculoskeletal: Normal, Strength/ROM Intact Neurological: A&Ox3, awake and alert, mentation is normal, speech is fluent and appropriate Psychiatric: affect is normal, does not appear anxious or depressed Triage Information Reviewed: Yes Vital Signs Reviewed: Yes Procedures - Laceration/Wound Repair 1 Location: head - closed 4 cm laceration on vertex of scalp with 5 marika Closure: Marika #__ - 5 Diagnostics - Laboratory Lab Statement: Any lab studies that have been ordered have been reviewed, and results considered in the medical decision making process. - CT Brain CT CT Interpretation Completed By: Radiologist Summary of CT Findings: Per radiologist,. 1. Superior scalp contusion/ laceration with no acute intracranial abnormality. 2. Age-related atrophy and moderate chronic small vessel ischemic disease. 3. Chronic right frontal MCA territorial infarct. 4. Stable intraventricular shunt catheter placement. ED physician has reviewed this report. Head Injury Course/Dx Course Of Treatment: 73 year old M patient brought to [facility] by EMS with a chief complaint of gash about 2 inches long at the head due to mechanical fall in assisted since 2353, today, 12/24/18, per triage. Per triage, no LOC and no blood thinners. Nurse reports he was walking to the bathroom when his feet and legs gave out and fell hurting his head. Patient reports to remember everything. Patient reports he has fallen before but not frequently. Physical exam reveals no abnormalities except for 5 cm laceration on vertex of the skull. Brain CT reveals. 1. Superior scalp contusion/laceration with no acute intracranial abnormality. 2. Age-related atrophy and moderate chronic small vessel ischemic disease. 3. Chronic right frontal MCA territorial infarct. 4. Stable intraventricular shunt catheter placement. Physician discusses discharge with patient who agrees to discharge. Patient will be discharged. - Diagnoses Provider Diagnoses: Scalp laceration Discharge - Sign-Out/Discharge Documenting (check all that apply): Patient Departure - discharge Patient Received Moderate/Deep Sedation with Procedure: No - Discharge Plan Condition: Good Disposition: HOME Patient Education Materials: Head Injury (ED), Staple Care (ED) Referrals: Justin Celestin DO [Primary Care Provider] - 3 Days Additional Instructions: Follow up with primary care provider within 3 days. Return to the ED for any new or worsening symptoms. - Billing Disposition and Condition Condition: GOOD Disposition: Home - Attestation Statements Document Initiated by Kasandraibe: Yes Documenting Scribe: Pao Naranjo Provider For Whom Arelis is Documenting (Include Credential): Dr. Rhett San MD Scribe Attestation: Pao Montanez scribed for Dr. Rhett San MD on 12/26/18 at 1815. Scribe Documentation Reviewed: Yes Provider Attestation: The documentation as recorded by the Pao das accurately reflects the service I personally performed and the decisions made by me, Dr. Rhett San MD Status of Scribe Document: Viewed
[2018-12-25 01:36] VITALS: BP 152/87
== END 2018-12-25 01:56 | disposition home or self-care (01) ==
LOC: ED 23:42
DX: S01.01XA Laceration without foreign body of scalp, initial encounter (principal); W19.XXXA Unspecified fall, initial encounter; Y93.01 Activity, walking, marching and hiking; Y92.129 Unspecified place in nursing home as the place of occurrence of the external cause; F32.9 Major depressive disorder, single episode, unspecified; Z86.73 Personal history of transient ischemic attack (TIA), and cerebral infarction without residual deficits; Z95.2 Presence of prosthetic heart valve; I25.10 Atherosclerotic heart disease of native coronary artery without angina pectoris; E78.00 Pure hypercholesterolemia, unspecified; I10 Essential (primary) hypertension; Z79.82 Long term (current) use of aspirin; Z79.899 Other long term (current) drug therapy
CPT/HCPCS: 12002; 70450; 99283